=== PATIENT | male | born 1970 | race Caucasian/White ===

== ENCOUNTER 2018-08-11 07:45 | Day surgery (SDC) | payer OTHER ==
[2018-08-03 15:27] VITALS: BMI 40.3
--- NOTE | 2018-08-11 07:33 | P.GSHP ---
History of Present Illness H&P Date: 08/11/18 CHIEF COMPLAINT: Inguinal hernia, right. HISTORY OF PRESENT ILLNESS: The patient is a 48-year-old male who presents with a history of swelling and pain along the right groin. Now he presents for repair of his inguinal hernia. PAST MEDICAL HISTORY: Please see list. PAST SURGICAL HISTORY: Please see list. MEDICATIONS: Please see list. ALLERGIES: Please see list. SOCIAL HISTORY: No illicit drug use FAMILY HISTORY: No reports of Crohn disease or ulcerative colitis. REVIEW OF ORGAN SYSTEMS: CONSTITUTIONAL: No reports of fevers or chills. No reports of weight loss despite prior attempts. GI: Denies any blood in stools or constipation. PHYSICAL EXAM: VITAL SIGNS: Stable GENERAL: Well-developed pleasant male in no acute distress. HEENT: No scleral icterus. Extraocular movements grossly intact. Moist buccal mucosa. NECK: Supple without lymphadenopathy. CHEST: Unlabored respirations. Equal bilateral excursions. CARDIOVASCULAR: Regular rate and rhythm. Distal 2+ pulses. ABDOMEN: Soft, nondistended. No peritoneal signs. Palpable defect of the right groin. MUSCULOSKELETAL: No clubbing, cyanosis, or edema. ASSESSMENT: 1. Inguinal hernia, right PLAN: 1. Recommend proceeding with a robotic inguinal repair with mesh with possible bilateral approach. 2. Benefits and risks of surgical intervention was discussed including possibility of open technique. 3. DVT prophylaxis. 4. Antibiotic prophylaxis. Past Medical History Past Medical History: Hyperlipidemia, Hypertension Additional Past Medical History / Comment(s): Rt inguinal hernia, states nerve pain in neck, states issues with kidneys in past r/t alchohol History of Any Multi-Drug Resistant Organisms: None Reported Additional Past Surgical History / Comment(s): deviated septum sx Past Anesthesia/Blood Transfusion Reactions: No Reported Reaction Smoking Status: Current every day smoker - Past Family History Mother Family Medical History: No Reported History Medications and Allergies Home Medications Medication Instructions Recorded Confirmed Type Aspirin 325 mg PO DAILY 08/03/18 08/03/18 History Blood Pressure Med 1 tab PO DAILY 08/03/18 History Cholesterol Med 1 tab PO DAILY 08/03/18 History Gabapentin 1 tab PO DAILY 08/03/18 History Zoloft 1 tab PO DAILY 08/03/18 History Allergies Allergy/AdvReac Type Severity Reaction Status Date / Time No Known Allergies Allergy Verified 08/03/18 15:18
[~2018-08-11 07:45] MED LIST: DEXAMETHASONE SOD PHOSPHATE 10 MG/ML 1 ML VIAL IV ONE; HEPARIN SODIUM,PORCINE 5,000 UNIT/ML 1 ML VIAL SQ ONE; MIDAZOLAM 2 MG/2 ML VIAL IV PRN; ONDANSETRON 4 MG/2 ML VIAL IVP ONE; SCOPOLAMINE 1.5MG/72HR PATCH TRANSDERM ONE
[2018-08-11] MEDS: LIDOCAINE 1% 20 ML VIAL (10MG/ML) FOR IV START INTRADERMA PRN ×2 (08:30→08:35)
[2018-08-11] MEDS: LACTATED RINGERS 1,000 ML IV SCH ×2 (08:30→08:35)
--- NOTE | 2018-08-11 09:02 | P.ONQ ---
Anesthesiology Proc Note - PNB - Peripheral Nerve Block Performed Bilateral Transversus Abdominis Time Out Performed: Yes Procedure Start Time: 08:45 Procedure Stop Time: 08:50 Indication: Acute Post-Operative Pain, Requested by physician Sedation Type: Sedate with meaningful contact maintained Preparation: Sterile Prep Position: Supine Catheter: None Needle Types: On-Q Needle Size: 100mm (4") Needle Gauge: 21 Technique: Ultrasound Injectate: Other (see comment) (0.375% ropivaciane 30cc on each side with 5mg dexamethasone on eachside) Blood Aspirated: No Pain Paresthesia on Injection Noted: No Resistance on Injection: Normal Events: Uneventful and Well Tolerated
[2018-08-11] MEDS ORDERED: LIDOCAINE 1% INJ 10MG/ML (20 ML MDV) ONE (09:31)
[2018-08-11] MEDS ORDERED: PHENYLEPHRINE-0.9% NACL SYG 1 MG/10 ML SYRINGE ONE (09:31)
[2018-08-11] MEDS ORDERED: ROCURONIUM BROMIDE 10 MG/ML 10 ML VIAL IV ONE (09:31)
[2018-08-11] MEDS ORDERED: ROPIVACAINE 5 MG/ML 30 ML VIAL ONE (09:31)
[2018-08-11] MEDS ORDERED: MIDAZOLAM 2 MG/2 ML VIAL ONE (09:31)
[2018-08-11] MEDS ORDERED: NEOSTIGMINE 1 MG/ML 10 ML VIAL ONE (09:31)
[2018-08-11] MEDS ORDERED: fentaNYL (PF) 50 MCG/ML 2 ML AMP ONE (09:31)
[2018-08-11] MEDS ORDERED: SUCCINYLCHOLINE CHLORIDE 100 MG/5 ML SYR IV ONE (09:31)
[2018-08-11] MEDS ORDERED: PROPOFOL 10 MG/ML 20 ML VIAL IV ONE (09:31)
[2018-08-11] MEDS ORDERED: GLYCOPYRROLATE 0.2 MG/ML 2 ML VIAL ONE (09:31)
[2018-08-11] MEDS ORDERED: BUPIVACAIN-EPI 0.25%-1:200,000 30 ML VIAL SQ ONE ×2 (09:32→10:10)
[2018-08-11] MEDS: HYDROmorphone 0.5 MG/0.5 ML SYRINGE IVP PRN ×4 (11:20→11:48)
[2018-08-11] MEDS ORDERED: KETOROLAC 30 MG/ML 1 ML VIAL IVP ONE (11:25)
[2018-08-11 11:31] VITALS: TEMP 98
[2018-08-11 11:34] VITALS: RESP 18
--- NOTE | 2018-08-11 11:50 | P.OP ---
Date of Procedure: 08/11/18 Description of Procedure: SURGEON: SUJATA LOPES MD PREOPERATIVE DIAGNOSES: 1. Initial right inguinal hernia. 2. Chronic pain syndrome 3. Morbid obesity due to excess calories, BMI 40.3 4. Depressive disorder 5. Hyperlipidemia hypertensive heart disease 6. Chronic lower back pain 7. Anxiety disorder 8. Tobacco abuse POSTOPERATIVE DIAGNOSES: 1. Initial right inguinal hernia. 2. Chronic pain syndrome 3. Morbid obesity due to excess calories, BMI 40.3 4. Depressive disorder 5. Hyperlipidemia hypertensive heart disease 6. Chronic lower back pain 7. Anxiety disorder 8. Tobacco abuse OPERATION: 1. Robotic-assisted da Sam Xi laparoscopic right inguinal hernia repair with mesh, 11.[address] ANESTHESIA: General with local anesthetic ESTIMATED BLOOD LOSS: 5 mL. SPECIMENS REMOVED: Incarcerated right inguinal hernia sac COMPLICATIONS: None. INDICATIONS: The patient is a 48-year-old gentleman who presents with history of right groin pain. Now presents for definitive surgical intervention. Laparoscopic versus open and robotic approaches were discussed. Benefits and risks including bleeding, infection, injury to the vas deferens as well as sterility and chronic groin pain were reviewed. Placement of mesh was also described. Informed consent was obtained. DESCRIPTION: In the preoperative area, the patient was marked with indelible marker along the inguinal hernia. The patient was brought to the operating room and initially laid in supine position. The abdomen had been prepped and draped in standard sterile fashion. Ioban draping was also placed. Prior to incision, a timeout protocol was confirmed with surgical team regarding patient's name including procedures to be performed and location along the right groin. Initial positioning for the robotic assisted ports were selected whereby 20 cm superior to the target anatomy, 0 degree 5 mm laparoscopic trocar entry was performed at the left upper quadrant. The abdomen was insufflated to 15 mmHg which he had tolerated well. Diagnostic laparoscopy demonstrated a indirect inguinal hernia along the right groin. Next, along the epigastrium, 8 mm robot trocar was placed. An 8-mm robotic trocar was placed under direct visualization at the right upper quadrant. An 8 mm port was placed at the left upper quadrant. All trocars were positioned between 8 to 10-cm apart from each other. The [employer] XI robot was primed, draped, prepared for docking along the right side of the patient. I then went to the [employer] Xi console. The night assistant was at bedside for exchange of the robot arms and equipment. No hernia was identified along the left groin. The right inguinal hernia sac was evaginated whereby the peritoneum was scored using Endo scissors with cautery. Once completely reduced into the abdominal cavity, the peritoneal sac of the hernia was stripped along indirect inguinal hernia. The sac was resected and then passed off for further pathological analysis. The size of the hernia defect was 3 cm with intraoperative films obtained. Using a 2-0 VLOC, the peritoneal defect of the right inguinal hernia site was closed using a running suture. The defect was found to be completely closed with complete reduction of the right direct inguinal hernia was confirmed. As an onlay, an 11.[address] mesh by [email or web address] was initially cut in half and entered into the abdominal cavity via the 8 mm trocar. The mesh was tacked to the pelvis using 2-0 VLOC 9-inch length sutures. The robot was undocked from the patient's bedside. I then rescrubbed into the case. Insufflation was released from the abdominal cavity and all instruments were removed from the abdominal cavity. The rest of incisions were reapproximated using 4-0 Monocryl in a running subcuticular fashion. Local anesthetic was placed along the incision including for a right groin block. Incisions were cleansed using dilute hydrogen peroxide. Liquid glue was applied to the skin. At the end of the procedure, the needle, sponge and instrument counts had been verified correct by the surgical coordinator. The patient had tolerated the procedure well and was taken to the postanesthesia care unit in stable condition. FINDINGS: 1. Left side unremarkable 2. Nyhus type 3b right inguinal hernia extending deep to the external inguinal ring with incarceration 3. Hyperactive peristalsis small bowel. Plan - Discharge Summary New Discharge Prescriptions: New Ibuprofen [Motrin] 600 mg PO Q8HR PRN #30 tab PRN Reason: Pain No Action Aspirin 325 mg PO DAILY Zoloft 1 tab PO DAILY Blood Pressure Med 1 tab PO DAILY Atorvastatin [Lipitor] 20 mg PO DAILY cloNIDine HCL [Catapres] 1 tab PO TID Olmesartan Medoxomil [Benicar] 1 tab PO DAILY oxyCODONE HCL [OxyCONTIN] 40 mg PO Q12H oxyCODONE HCL 20 mg PO Q4-6H DULoxetine HCL [Cymbalta] 60 mg PO DAILY traZODone HCL 150 mg PO busPIRone HCL [Buspar] 1 tab PO buPROPion HCL [Wellbutrin SR] 150 mg PO Valsartan 320 mg PO Loratadine 10 mg PO Gabapentin 1 tab PO TID Discharge Medication List Aspirin 325 mg PO DAILY 08/03/18 [History] Blood Pressure Med 1 tab PO DAILY 08/03/18 [History] Zoloft 1 tab PO DAILY 08/03/18 [History] Atorvastatin [Lipitor] 20 mg PO DAILY 08/11/18 [History] DULoxetine HCL [Cymbalta] 60 mg PO DAILY 08/11/18 [History] Gabapentin 1 tab PO TID 08/11/18 [History] Ibuprofen [Motrin] 600 mg PO Q8HR PRN #30 tab 08/11/18 [Rx] Loratadine 10 mg PO 08/11/18 [History] Olmesartan Medoxomil [Benicar] 1 tab PO DAILY 08/11/18 [History] Valsartan 320 mg PO 08/11/18 [History] buPROPion HCL [Wellbutrin SR] 150 mg PO 08/11/18 [History] busPIRone HCL [Buspar] 1 tab PO 08/11/18 [History] cloNIDine HCL [Catapres] 1 tab PO TID 08/11/18 [History] oxyCODONE HCL 20 mg PO Q4-6H 08/11/18 [History] oxyCODONE HCL [OxyCONTIN] 40 mg PO Q12H 08/11/18 [History] traZODone HCL 150 mg PO 08/11/18 [History] Follow up Appointment(s)/Referral(s): Sujata Lopes MD [STAFF PHYSICIAN] - 08/16/18 11:30 am Patient Instructions/Handouts: Laparoscopic Herniorrhaphy (DC), Inguinal Hernia Repair (DC) Activity/Diet/Wound Care/Special Instructions: PRESCRIPTION SENT TO LOCAL PHARMACY. GET NARCOTICS FROM YOUR PAIN PRESCRIBER. No Lifting over 4 pounds 2 weeks. May shower. No bath tub soaks. Discharge Disposition: HOME SELF-CARE
[2018-08-11] MEDS ORDERED: LACTATED RINGERS 1,000 ML IV ONE (11:53)
[2018-08-11] MEDS ORDERED: TAMSULOSIN 0.4 MG CAP.ER.24H PO STA (12:09)
[2018-08-11 12:54] VITALS: BP 142/86; PULSE 79
== END 2018-08-11 13:11 | disposition home or self-care (01) ==
LOC: OR 07:45
PROVIDERS: ATTEND Surgery Plastic and Reconstructive Surgery
DX: K40.30 Unilateral inguinal hernia, with obstruction, without gangrene, not specified as recurrent (principal); R19.2 Visible peristalsis; G89.4 Chronic pain syndrome; E66.01 Morbid (severe) obesity due to excess calories; Z68.41 Body mass index [BMI] 40.0-44.9, adult; F32.9 Major depressive disorder, single episode, unspecified; I11.9 Hypertensive heart disease without heart failure; M54.5 Low back pain; F41.9 Anxiety disorder, unspecified; E78.5 Hyperlipidemia, unspecified; F17.210 Nicotine dependence, cigarettes, uncomplicated; F10.10 Alcohol abuse, uncomplicated; Z79.82 Long term (current) use of aspirin; Z79.899 Other long term (current) drug therapy; Z79.891 Long term (current) use of opiate analgesic
CPT/HCPCS: 64488; 88302; 49650; C1781; J2250; J1644; J1100; J2710; J0690; J2405; J2001; J3010; J1885; J2795; J2370; J0330; J2704; J1170

== ENCOUNTER 2018-11-19 16:56 | Emergency (ER) | payer OTHER ==
[2018-11-19 17:06] VITALS: RESP 18
[2018-11-19] MEDS ORDERED: THIAMINE 100 MG in SODIUM CHLORIDE 0.9% 50 ML IVPB STA (17:31)
[2018-11-19] MEDS ORDERED: SODIUM CHLORIDE 0.9% 1,000 ML IV ONE (17:31)
[2018-11-19] MEDS ORDERED: THIAMINE 200 MG in SODIUM CHLORIDE 0.9% 100 ML IVPB STA (17:36)
--- NOTE | 2018-11-19 17:39 | ED ---
General Adult HPI - General Chief complaint: Eye Problems Stated complaint: Seeing Double Time Seen by Provider: 11/19/18 17:09 Source: patient, RN notes reviewed, old records reviewed Mode of arrival: wheelchair Limitations: no limitations - History of Present Illness Initial comments: 48-year-old male presents for evaluation of double vision. Symptoms began upon awakening this morning approximately 10 hours prior to arrival. He's had episodes similar to this in the past which was related to "acid buildup secondary to alcohol consumption". This was several years ago and he was treated at an outside hospital. He does admit to daily drinking. He states he had several drinks today. Denies any extremity numbness or weakness. Denies chest pain or dyspnea. Denies fever or chills. - Related Data Home Medications Medication Instructions Recorded Confirmed Aspirin 325 mg PO DAILY 08/03/18 11/19/18 Atorvastatin [Lipitor] 20 mg PO DAILY 08/11/18 11/19/18 DULoxetine HCL [Cymbalta] 60 mg PO BID 08/11/18 11/19/18 Gabapentin 800 mg PO TID 08/11/18 11/19/18 Loratadine 10 mg PO DAILY 08/11/18 11/19/18 Valsartan 320 mg PO DAILY 08/11/18 11/19/18 buPROPion HCL [Wellbutrin SR] 150 mg PO DAILY 08/11/18 11/19/18 cloNIDine HCL [Catapres] 0.1 mg PO TID 08/11/18 11/19/18 oxyCODONE HCL [OxyCONTIN] 40 mg PO Q12H 08/11/18 11/19/18 oxyCODONE HCL [oxyCODONE HCL (IR)] 20 mg PO TID 08/11/18 11/19/18 traZODone HCL 150 mg PO HS 08/11/18 11/19/18 busPIRone HCL 15 mg PO BID 11/19/18 11/19/18 Allergies Allergy/AdvReac Type Severity Reaction Status Date / Time No Known Allergies Allergy Verified 11/19/18 18:04 Review of Systems ROS Statement: Those systems with pertinent positive or pertinent negative responses have been documented in the HPI. ROS Other: All systems not noted in ROS Statement are negative. Past Medical History Past Medical History: Hyperlipidemia, Hypertension Additional Past Medical History / Comment(s): Rt inguinal hernia, states nerve pain in neck, states issues with kidneys in past r/t alchohol History of Any Multi-Drug Resistant Organisms: None Reported Additional Past Surgical History / Comment(s): deviated septum sx Past Anesthesia/Blood Transfusion Reactions: No Reported Reaction Past Psychological History: Anxiety Smoking Status: Current every day smoker Past Alcohol Use History: Daily Past Drug Use History: Marijuana - Past Family History Mother Family Medical History: No Reported History General Exam Limitations: no limitations General appearance: alert, appears intoxicated Head exam: Present: atraumatic, normocephalic Eye exam: Present: PERRL, nystagmus, other (Minimal right sixth nerve palsy) ENT exam: Present: mucous membranes dry Neck exam: Present: normal inspection. Absent: tenderness, meningismus Respiratory exam: Present: normal lung sounds bilaterally. Absent: respiratory distress, wheezes Cardiovascular Exam: Present: regular rate, normal rhythm GI/Abdominal exam: Present: soft. Absent: distended, tenderness, guarding Extremities exam: Present: normal inspection, tenderness Back exam: Present: normal inspection, tenderness Neurological exam: Present: alert, oriented X3, CN II-XII intact (Nystagmus and right sixth nerve palsy), motor sensory deficit (No focal extremity weakness) Psychiatric exam: Present: normal affect, normal mood Skin exam: Present: warm, dry, intact. Absent: cyanosis, diaphoretic Course Vital Signs 11/19/18 17:04 Temperature 98.3 F Pulse Rate 83 Respiratory 18 Rate Blood Pressure 131/78 O2 Sat by Pulse 99 Oximetry EKG Findings - EKG Comments: EKG Findings:: EKG: Normal sinus rhythm, rate 74, VA interval 154, QRS duration 92, QTC [address] segment changes. Medical Decision Making - Medical Decision Making Patient with nystagmus, 6 cranial nerve palsy and double vision. Concern for work is given the patient's daily alcohol consumption. CT is performed negative for intracranial hemorrhage or mass effect. Normal CBC, mild lactic acidosis 2.6, magnesium 1.9, EtOH is 141. Plan to admit this patient for continued IV hydration, IV thiamine, for Wernicke's encephalopathy. On reevaluation, patient is at the desk, fully dressed with this, rebound, stating he would like to leave immediately. He states his vision is completely returned to normal. He is accompanied by his . They are instructed of the severity of his symptoms and the relation to alcohol consumption and vitamin deficiency. They are instructed that if they do the hospital that he should abstain from alcohol, and showed take thiamine supplementation. - Lab Data Result diagrams: 11/19/18 17:52 11/19/18 17:52 Lab Results 11/19/18 11/19/18 11/19/18 Range/Units 17:52 17:52 17:52 WBC 10.1 (3.8-10.6) k/uL RBC 4.48 (4.30-5.90) m/uL Hgb 13.2 (13.0-17.5) gm/dL Hct 38.2 L (39.0-53.0) % MCV 85.3 (80.0-100.0) fL MCH 29.4 (25.0-35.0) pg MCHC 34.4 (31.0-37.0) g/dL RDW 16.8 H (11.5-15.5) % Plt Count 300 (150-450) k/uL Neutrophils % 58 % Lymphocytes % 33 % Monocytes % 5 % Eosinophils % 1 % Basophils % 1 % Neutrophils # 5.9 (1.3-7.7) k/uL Lymphocytes # 3.4 (1.0-4.8) k/uL Monocytes # 0.5 (0-1.0) k/uL Eosinophils # 0.1 (0-0.7) k/uL Basophils # 0.1 (0-0.2) k/uL Anisocytosis Slight PT (9.0-12.0) sec INR (<1.2) APTT (22.0-30.0) sec Sodium 137 (137-145) mmol/L Potassium 4.3 (3.5-5.1) mmol/L Chloride 103 (98-107) mmol/L Carbon Dioxide 22 (22-30) mmol/L Anion Gap 12 mmol/L BUN 8 L (9-20) mg/dL Creatinine 0.69 (0.66-1.25) mg/dL Est GFR (CKD-EPI)AfAm >90 (>60 ml/min/1.73 sqM) Est GFR (CKD-EPI)NonAf >90 (>60 ml/min/1.73 sqM) Glucose 80 (74-99) mg/dL Plasma Lactic Acid Derik 2.6 H* (0.7-2.0) mmol/L Calcium 9.5 (8.4-10.2) mg/dL Magnesium 1.9 (1.6-2.3) mg/dL Total Bilirubin 0.3 (0.2-1.3) mg/dL AST 26 (17-59) U/L ALT 27 (21-72) U/L Alkaline Phosphatase 80 (38-126) U/L Total Protein 6.7 (6.3-8.2) g/dL Albumin 4.0 (3.5-5.0) g/dL Serum Alcohol 141 mg/dL 11/19/18 Range/Units 17:52 WBC (3.8-10.6) k/uL RBC (4.30-5.90) m/uL Hgb (13.0-17.5) gm/dL Hct (39.0-53.0) % MCV (80.0-100.0) fL MCH (25.0-35.0) pg MCHC (31.0-37.0) g/dL RDW (11.5-15.5) % Plt Count (150-450) k/uL Neutrophils % % Lymphocytes % % Monocytes % % Eosinophils % % Basophils % % Neutrophils # (1.3-7.7) k/uL Lymphocytes # (1.0-4.8) k/uL Monocytes # (0-1.0) k/uL Eosinophils # (0-0.7) k/uL Basophils # (0-0.2) k/uL Anisocytosis PT 9.5 (9.0-12.0) sec INR 0.9 (<1.2) APTT 23.0 (22.0-30.0) sec Sodium (137-145) mmol/L Potassium (3.5-5.1) mmol/L Chloride (98-107) mmol/L Carbon Dioxide (22-30) mmol/L Anion Gap mmol/L BUN (9-20) mg/dL Creatinine (0.66-1.25) mg/dL Est GFR (CKD-EPI)AfAm (>60 ml/min/1.73 sqM) Est GFR (CKD-EPI)NonAf (>60 ml/min/1.73 sqM) Glucose (74-99) mg/dL Plasma Lactic Acid Derik (0.7-2.0) mmol/L Calcium (8.4-10.2) mg/dL Magnesium (1.6-2.3) mg/dL Total Bilirubin (0.2-1.3) mg/dL AST (17-59) U/L ALT (21-72) U/L Alkaline Phosphatase (38-126) U/L Total Protein (6.3-8.2) g/dL Albumin (3.5-5.0) g/dL Serum Alcohol mg/dL Disposition Clinical Impression: Wernicke encephalopathy, Nystagmus Disposition: HOME SELF-CARE Condition: Fair Instructions (If sedation given, give patient instructions): Diplopia (ED), Encephalopathy (DC) Is patient prescribed a controlled substance at d/c from ED?: No Referrals: Jesus Denson MD [Primary Care Provider] - 1-2 days Time of Disposition: 19:23
[2018-11-19] MEDS ORDERED: MORPHINE SULFATE 4 MG/ML SYRINGE IVP STA (18:01)
[2018-11-19 18:05] LABS: Anisocytosis Slight; Basophils # (A) 0.1 k/uL (0-0.2); Basophils % (A) 1 %; Eosinophils # (A) 0.1 k/uL (0-0.7); Eosinophils % (A) 1 %; HCT 38.2 % (39.0-53.0); HGB 13.2 gm/dL (13.0-17.5); Lymphocytes # (A) 3.4 k/uL (1.0-4.8); Lymphocytes % (A) 33 %; MCH 29.4 pg (25.0-35.0); MCHC 34.4 g/dL (31.0-37.0); MCV 85.3 fL (80.0-100.0); Mean Platelet Volume 9.2; Monocytes # (A) 0.5 k/uL (0-1.0); Monocytes % (A) 5 %; Neutrophils # (A) 5.9 k/uL (1.3-7.7); Neutrophils % (A) 58 %; Platelet Count 300 k/uL (150-450); RBC 4.48 m/uL (4.30-5.90); RDW 16.8 % (11.5-15.5); WBC 10.1 k/uL (3.8-10.6)
[2018-11-19 18:18] LABS: ALT 27 U/L (21-72); AST 26 U/L (17-59); Alkaline Phosphatase 80 U/L (38-126); Anion Gap 12 mmol/L; Blood Urea Nitrogen 8 mg/dL (9-20); Calcium 9.5 mg/dL (8.4-10.2); Carbon Dioxide 22 mmol/L (22-30); Chloride 103 mmol/L (98-107); Glucose 80 mg/dL (74-99); Magnesium 1.9 mg/dL (1.6-2.3); Potassium 4.3 mmol/L (3.5-5.1); Sodium 137 mmol/L (137-145); Total Bilirubin 0.3 mg/dL (0.2-1.3); Total Protein 6.7 g/dL (6.3-8.2)
[2018-11-19 18:21] LABS: INR 0.9 (<1.2); Prothrombin Time 9.5 sec (9.0-12.0)
[2018-11-19 18:47] LABS: Alcohol 141 mg/dL
--- NOTE | 2018-11-19 19:01 | CT ---
EXAMINATION TYPE: CT brain wo con DATE OF EXAM: 11/19/2018 COMPARISON: None HISTORY: double vision CT DLP: 1093.4 mGycm. Automated Exposure Control for Dose Reduction was Utilized. TECHNIQUE: CT scan of the head is performed without contrast. FINDINGS: There is no acute intracranial hemorrhage, mass effect, or midline shift identified. The ventricles and sulci are within normal limits in size. Mild asymmetry in the lateral ventricles is likely normal variant. There is mild cortical atrophy. The globes are intact and the visualized sinus es are clear. IMPRESSION: No acute intracranial hemorrhage, mass effect, or midline shift is seen.
[2018-11-19 19:32] VITALS: BP 126/82; PULSE 80; TEMP 98.1
== END 2018-11-19 19:31 | disposition home or self-care (01) ==
LOC: EC 16:56
DX: E51.2 Wernicke's encephalopathy (principal); H55.00 Unspecified nystagmus; E78.5 Hyperlipidemia, unspecified; I10 Essential (primary) hypertension; F41.9 Anxiety disorder, unspecified; F17.200 Nicotine dependence, unspecified, uncomplicated; Z79.82 Long term (current) use of aspirin; Z79.899 Other long term (current) drug therapy; Z53.8 Procedure and treatment not carried out for other reasons
CPT/HCPCS: 36415; 93005; 80053; 83605; 83735; 85025; 85610; 85730; 80320; 70450; 99284; 96365; 96375; J2270; J3411

== ENCOUNTER → 2019-02-28 | Outpatient (CLI) | payer OTHER ==
--- NOTE | 2019-02-28 09:47 | CT ---
EXAMINATION TYPE: CT foot RT wo con DATE OF EXAM: 02/28/2019 COMPARISON: None HISTORY: Pain right foot Unenhanced CT of the right foot was performed in the axial coronal and sagittal planes with bone and soft tissue window settings submitted. Automated exposure control for dose reduction was used. FINDINGS: Virtually nondisplaced fractures are noted at the bases of the second third and fourth metatarsals. T here does not appear to be intra-articular extension. No significant callus formation is noted. No ev idence for Lisfranc fracture dislocation at this time. No additional fracture seen. If there is mild soft tissue swelling noted. IMPRESSION: NONDISPLACED FRACTURES AT THE BASES OF THE SECOND, THIRD AND FOURTH METATARSALS. NO EVIDENCE FOR LISF RANC FRACTURE DISLOCATION AT THIS TIME.
== END | disposition home or self-care (01) ==
LOC: RADCTMAIN 07:26
PROVIDERS: ATTEND Orthopaedic Surgery
DX: S92.324A Nondisplaced fracture of second metatarsal bone, right foot, initial encounter for closed fracture (principal); S92.334A Nondisplaced fracture of third metatarsal bone, right foot, initial encounter for closed fracture; S92.344A Nondisplaced fracture of fourth metatarsal bone, right foot, initial encounter for closed fracture

== ENCOUNTER 2019-05-08 22:17 | Emergency (ER) | payer OTHER ==
[2019-05-08 23:08] LABS: Basophils # (A) 0.2 k/uL (0-0.2); Basophils % (A) 1 %; Eosinophils # (A) 0.1 k/uL (0-0.7); Eosinophils % (A) 1 %; HCT 39.2 % (39.0-53.0); HGB 13.3 gm/dL (13.0-17.5); Lymphocytes # (A) 4.9 k/uL (1.0-4.8); Lymphocytes % (A) 48 %; MCH 30.7 pg (25.0-35.0); MCV 90.3 fL (80.0-100.0); Mean Platelet Volume 6.6; Monocytes # (A) 0.3 k/uL (0-1.0); Monocytes % (A) 3 %; Neutrophils # (A) 4.4 k/uL (1.3-7.7); Neutrophils % (A) 43 %; Platelet Count 286 k/uL (150-450); RBC 4.34 m/uL (4.30-5.90); RDW 15.4 % (11.5-15.5); WBC 10.2 k/uL (3.8-10.6)
[2019-05-08 23:20] LABS: Urn Cannabinoid Scrn Detected (NotDetected)
[2019-05-08 23:21] LABS: ALT 40 U/L (21-72); AST 37 U/L (17-59); Acetaminophen <10.0 ug/mL; African American GFR (CKD) >90 (>60 ml/min/1.73 sqM); Albumin 4.3 g/dL (3.5-5.0); Alkaline Phosphatase 101 U/L (38-126); Anion Gap 10 mmol/L; Blood Urea Nitrogen 8 mg/dL (9-20); Calcium 9.2 mg/dL (8.4-10.2); Carbon Dioxide 27 mmol/L (22-30); Chloride 99 mmol/L (98-107); Glucose 88 mg/dL (74-99); Potassium 4.2 mmol/L (3.5-5.1); Salicylate <1.0 mg/dL; Sodium 136 mmol/L (137-145); Total Bilirubin 0.2 mg/dL (0.2-1.3); Total Protein 7.2 g/dL (6.3-8.2)
[2019-05-08 23:21] LABS: Amphetamine Screen,Urine Not Detected (NotDetected); Barbiturate Screen,Urine Not Detected (NotDetected); Benzodiazepines Screen,Urine Detected (NotDetected); Cocaine Screen,Urine Not Detected (NotDetected); Methadone Screen, Urine Not Detected (NotDetected); Opiate Screen,Urine Not Detected (NotDetected); Oxycodone Screen, Urine Detected (NotDetected); Phencyclidine Screen,Urine Not Detected (NotDetected); Tricyclic Antidepressant,Urine Not Detected (NotDetected)
[2019-05-08 23:24] LABS: Alcohol 243 mg/dL
--- NOTE | 2019-05-08 23:33 | ED ---
Psych HPI - General Source: patient, family Mode of arrival: ambulatory <Davida Blair - Last Filed: 05/09/19 00:24> <Daniel Gomez - Last Filed: 05/09/19 10:05> - General Chief Complaint: Psychiatric Symptoms Stated Complaint: ETOH Time Seen by Provider: 05/08/19 22:24 - History of Present Illness Initial Comments: Leo is a 49-year-old gentleman who presents the emergency department today for evaluation of depression, polysubstance abuse. Patient suffers from chronic pain he's had multiple neck surgeries he's on multiple pain medications despite this he states he can get his pain under control. His reports that he drinks heavily to mask his pain. Avoid seafood. Both she was at work the patient been drinking heavily and when she came home he was making suicidal statements stating that he wants everything to end. Patient states she just wants all of this and he can't deal with it anymore. Patient is agitated. He states he didn't want to the hospital his made him. He does admit to drinking heavily along with taking his medications. His does report that he will run out of his pain medications earlier this week because he "ran short" (Davida Blair) - Related Data Home Medications Medication Instructions Recorded Confirmed Atorvastatin [Lipitor] 20 mg PO DAILY 08/11/18 05/09/19 DULoxetine HCL [Cymbalta] 60 mg PO BID 08/11/18 05/09/19 Gabapentin 800 mg PO TID 08/11/18 05/09/19 buPROPion HCL [Wellbutrin SR] 150 mg PO BID 08/11/18 05/09/19 cloNIDine HCL [Catapres] 0.1 mg PO TID 08/11/18 05/09/19 oxyCODONE HCL [oxyCODONE HCL (IR)] 20 mg PO QID 08/11/18 05/09/19 traZODone HCL 150 mg PO HS 08/11/18 05/09/19 Olmesartan Medoxomil [Benicar] 40 mg PO DAILY 05/09/19 05/09/19 Allergies Allergy/AdvReac Type Severity Reaction Status Date / Time No Known Allergies Allergy Verified 05/08/19 22:24 Review of Systems ROS Other: All systems not noted in ROS Statement are negative. <Davida Blair - Last Filed: 05/09/19 00:24> ROS Other: All systems not noted in ROS Statement are negative. <JasonDaniel - Last Filed: 05/09/19 10:05> ROS Statement: Those systems with pertinent positive or pertinent negative responses have been documented in the HPI. Past Medical History Past Medical History: Hyperlipidemia, Hypertension Additional Past Medical History / Comment(s): Rt inguinal hernia, states nerve pain in neck, states issues with kidneys in past r/t alchohol History of Any Multi-Drug Resistant Organisms: None Reported Past Surgical History: Hernia Repair Additional Past Surgical History / Comment(s): deviated septum sx Past Anesthesia/Blood Transfusion Reactions: No Reported Reaction Past Psychological History: Anxiety Smoking Status: Current every day smoker Past Alcohol Use History: Abuse, Daily Past Drug Use History: Marijuana, Prescription Drug Abuse - Past Family History Mother Family Medical History: No Reported History <Davida Blair - Last Filed: 05/09/19 00:24> General Exam Limitations: no limitations <Davida Blair - Last Filed: 05/09/19 00:24> - General Exam Comments Initial Comments: Physical Exam GENERAL: Patient's laying in bed with the blankets over his entire body and head, resistant to exam Drug odor of alcohol. HENT: Normocephalic, Atraumatic. EYES: PERRL, EOMI PULMONARY: Unlabored respirations. No audible rales rhonchi or wheezing was noted. CARDIOVASCULAR: There is a regular rate and rhythm without any murmurs gallops or rubs. ABDOMEN: Soft and nontender with normal bowel sounds. SKIN: Skin is clear with no lesions or rashes and otherwise unremarkable. : Deferred NEUROLOGIC: Patient is alert and oriented x3. Moving all extremities spontaneously Slurred speech consistent with alcohol intoxication MUSCULOSKELETAL: Normal extremities with adequate strength and full range of motion. No lower extremity swelling or edema. No calf tenderness. PSYCHIATRIC: Agitated, hopeless, depressed, denies any suicidal plan but repeatedly states that he wants this all to end (Davida Blair) Course <Daniel Gomez - Last Filed: 05/09/19 10:05> Vital Signs 05/08/19 05/09/19 05/09/19 22:19 00:59 03:53 Temperature 97.9 F 97.3 F L Pulse Rate 69 79 79 Respiratory 18 16 19 Rate Blood Pressure 127/82 116/75 106/66 O2 Sat by Pulse 99 99 98 Oximetry 05/09/19 08:28 Temperature 98.7 F Pulse Rate 77 Respiratory 18 Rate Blood Pressure 100/60 O2 Sat by Pulse 98 Oximetry - Reevaluation(s) Reevaluation #1: 05/09/19 10:04 The patient was evaluated by sticking surface found not to be wrist was suffering miles this time he will be referred out to substance abuse Center. (Daniel Gomez) Medical Decision Making - Lab Data Result diagrams: 05/08/19 22:52 05/08/19 22:52 <Davida Blair - Last Filed: 05/09/19 00:24> - Lab Data Result diagrams: 05/08/19 22:52 05/08/19 22:52 <Daniel Gomez - Last Filed: 05/09/19 10:05> - Medical Decision Making The patient was seen and evaluated history was obtained from the and patient Patient is 49 years old suffers from chronic pain is on multiple medications, is an alcoholic, has become increasingly more depressed, hopeless brought him to the ER hoping for help with his depression as well as pain management Physical exam is unremarkable Patient does express some depression and wanting everything to end but denies specific suicidal thoughts or plan Patient is intoxicated on initial evaluation Labs were obtained Labs with alcohol level of 243, urine drug screen positive for oxycodone benzos and marijuana. This consistent with the patient's pain management medications and marijuana use. Patient will be medically cleared for evaluation by psychiatry around 7 AM when sober. (Davida Blair) - Lab Data Lab Results 05/08/19 05/08/19 05/08/19 Range/Units 22:45 22:52 22:52 WBC 10.2 (3.8-10.6) k/uL RBC 4.34 (4.30-5.90) m/uL Hgb 13.3 (13.0-17.5) gm/dL Hct 39.2 (39.0-53.0) % MCV 90.3 (80.0-100.0) fL MCH 30.7 (25.0-35.0) pg MCHC 34.0 (31.0-37.0) g/dL RDW 15.4 (11.5-15.5) % Plt Count 286 (150-450) k/uL Neutrophils % 43 % Lymphocytes % 48 % Monocytes % 3 % Eosinophils % 1 % Basophils % 1 % Neutrophils # 4.4 (1.3-7.7) k/uL Lymphocytes # 4.9 H (1.0-4.8) k/uL Monocytes # 0.3 (0-1.0) k/uL Eosinophils # 0.1 (0-0.7) k/uL Basophils # 0.2 (0-0.2) k/uL Sodium 136 L (137-145) mmol/L Potassium 4.2 (3.5-5.1) mmol/L Chloride 99 (98-107) mmol/L Carbon Dioxide 27 (22-30) mmol/L Anion Gap 10 mmol/L BUN 8 L (9-20) mg/dL Creatinine 0.73 (0.66-1.25) mg/dL Est GFR (CKD-EPI)AfAm >90 (>60 ml/min/1.73 sqM) Est GFR (CKD-EPI)NonAf >90 (>60 ml/min/1.73 sqM) Glucose 88 (74-99) mg/dL Calcium 9.2 (8.4-10.2) mg/dL Total Bilirubin 0.2 (0.2-1.3) mg/dL AST 37 (17-59) U/L ALT 40 (21-72) U/L Alkaline Phosphatase 101 (38-126) U/L Total Protein 7.2 (6.3-8.2) g/dL Albumin 4.3 (3.5-5.0) g/dL Salicylates <1.0 mg/dL Urine Opiates Screen Not Detected (NotDetected) Ur Oxycodone Screen Detected H (NotDetected) Urine Methadone Screen Not Detected (NotDetected) Ur Propoxyphene Screen Not Detected (NotDetected) Acetaminophen <10.0 ug/mL Ur Barbiturates Screen Not Detected (NotDetected) U Tricyclic Antidepress Not Detected (NotDetected) Ur Phencyclidine Scrn Not Detected (NotDetected) Ur Amphetamines Screen Not Detected (NotDetected) U Methamphetamines Scrn Not Detected (NotDetected) U Benzodiazepines Scrn Detected H (NotDetected) Urine Cocaine Screen Not Detected (NotDetected) U Marijuana (THC) Screen Detected H (NotDetected) Serum Alcohol 243 H* mg/dL Disposition <Davida Blair - Last Filed: 05/09/19 00:24> Is patient prescribed a controlled substance at d/c from ED?: No <Daniel Gomez - Last Filed: 05/09/19 10:05> Clinical Impression: Alcohol intoxication, Adjustment disorder Disposition: HOME SELF-CARE Condition: Good Instructions (If sedation given, give patient instructions): Abuse of Alcohol (ED), Alcohol Intoxication (ED), Mood Disorders (ED) Referrals: Jesus Denson MD [Primary Care Provider] - 1-2 days
[2019-05-09 10:36] VITALS: BP 112/71; PULSE 73; RESP 16; TEMP 98
== END 2019-05-09 10:35 | disposition home or self-care (01) ==
LOC: EC 22:17
DX: F10.129 Alcohol abuse with intoxication, unspecified (principal); F43.23 Adjustment disorder with mixed anxiety and depressed mood; G89.29 Other chronic pain; E78.5 Hyperlipidemia, unspecified; I10 Essential (primary) hypertension; F17.200 Nicotine dependence, unspecified, uncomplicated; Z79.891 Long term (current) use of opiate analgesic; Z79.899 Other long term (current) drug therapy; Y90.8 Blood alcohol level of 240 mg/100 ml or more
CPT/HCPCS: 36415; 80053; 80306; 80320; 80329; 82075; 83520; 85025; 99285

== ENCOUNTER → 2020-10-10 | Outpatient (CLI) | payer BC ==
[2020-10-10 23:19] LABS: Basophils # (A) 0.06 X 10*3/uL (0.00-0.10); Basophils % (A) 0.8 %; Eosinophils # (A) 0.05 X 10*3/uL (0.04-0.35); Eosinophils % (A) 0.7 %; HCT 35.7 % (39.6-50.0); HGB 11.8 g/dL (13.0-17.0); Lymphocytes # (A) 2.91 X 10*3/uL (0.90-5.00); Lymphocytes % (A) 39.9 %; MCH 30.6 pg (27.0-32.0); MCHC 33.1 g/dL (32.0-37.0); MCV 92.7 fL (80.0-97.0); Mean Platelet Volume 10.1 fL (9.5-12.2); Monocytes # (A) 0.58 X 10*3/uL (0.20-1.00); Monocytes % (A) 7.9 %; Neutrophils # (A) 3.68 X 10*3/uL (1.80-7.70); Neutrophils % (A) 50.4 %; Platelet Count 308 X 10*3/uL (140-440); RBC 3.85 X 10*6/uL (4.40-5.60); RDW 15.2 % (11.5-14.5)
== END | disposition home or self-care (01) ==
LOC: LABWHC1 14:51
PROVIDERS: ATTEND Nurse Practitioner
DX: R19.7 Diarrhea, unspecified (principal)
CPT/HCPCS: 36415; 83993; 85025; 86140

== ENCOUNTER 2022-08-31 18:13 | Inpatient (IN) | payer BC ==
[2022-08-31 19:26] LABS: Anisocytosis Slight; HCT 36.5 % (39.0-53.0); HGB 11.8 gm/dL (13.0-17.5); MCH 30.7 pg (25.0-35.0); MCHC 32.2 g/dL (31.0-37.0); MCV 95.4 fL (80.0-100.0); Mean Platelet Volume 7.2; Platelet Count 276 k/uL (150-450); RBC 3.83 m/uL (4.30-5.90); RDW 16.4 % (11.5-15.5); WBC 10.9 k/uL (3.8-10.6)
[2022-08-31 19:31] LABS: ALT 50 U/L (4-49); AST 44 U/L (17-59); African American GFR (CKD) >90 (>60 ml/min/1.73 sqM); Albumin 3.9 g/dL (3.5-5.0); Alkaline Phosphatase 75 U/L (38-126); Anion Gap 10 mmol/L; Blood Urea Nitrogen 28 mg/dL (9-20); Calcium 8.7 mg/dL (8.4-10.2); Carbon Dioxide 26 mmol/L (22-30); Chloride 112 mmol/L (98-107); Glucose 82 mg/dL (74-99); Lipase 215 U/L (23-300); Magnesium 2.2 mg/dL (1.6-2.3); Non-African American GFR(CKD) >90 (>60 ml/min/1.73 sqM); Potassium 4.4 mmol/L (3.5-5.1); Sodium 148 mmol/L (137-145); Total Bilirubin 0.2 mg/dL (0.2-1.3); Total Protein 6.5 g/dL (6.3-8.2)
[2022-08-31 19:49] LABS: Alcohol 384 mg/dL
--- NOTE | 2022-08-31 19:50 | CT ---
EXAMINATION TYPE: CT brain anneliese wo con DATE OF EXAM: 08/31/2022 COMPARISON: CT brain 11/19/2018 HISTORY: ETOH, possible fall CT DLP: 1520.9 mGycm Automated exposure control for dose reduction was used. Images of the brain and cervical spine obtained without contrast. There is mild cerebral atrophy. There is no mass effect or midline shift. No sign of intracranial hem orrhage. Calvarium is intact. The cervical vertebra have normal spacing and alignment. Posterior elements are intact. There is mild multilevel cervical hypertrophic facet arthropathy. Prevertebral soft tissues are intact. The skull base is intact. There is normal aeration of the temporal bones. IMPRESSION: Mild atrophy. No acute intracranial abnormality. No change. Negative CT scan cervical spine. No fracture. Mild multilevel cervical facet arthropathy.
[2022-08-31] MEDS ORDERED: LORazepam 2 MG/ML INJ IM STA ×2 (20:04→20:14)
[2022-08-31 20:12] LABS: Lymphocytes # (M) 6.21 k/uL (1.0-4.8); Monocytes # (M) 0.44 k/uL (0-1.0); Neutrophils # (M) 4.25 k/uL (1.3-7.7); Neutrophils % (M) 39 %; Nucleated Red Blood Cells 0 /100 WBC (0-0); Total Cells Counted 100
[2022-08-31] MEDS ORDERED: HALOPERIDOL LACTATE 5 MG/ML 1 ML VIAL IM STA (20:14)
[2022-08-31] MEDS ORDERED: diphenhydrAMINE 50 MG/ML 1 ML VIAL IM STA (20:14)
--- NOTE | 2022-08-31 20:29 | ED ---
General Adult HPI - General Chief complaint: Alcohol Stated complaint: ETOH Source: EMS Mode of arrival: EMS Limitations: no limitations - History of Present Illness Initial comments: This is a 52-year-old male who was brought in by EMS for EtOH abuse. It was reported by EMS that the patient was reportedly finishing his fifth of vodka and was significantly intoxicated. The patient's was at home and did report that the last time this happened she had to wrestle a gun out of his hands because he becomes suicidal. The patient himself was not suicidal at this time but was extremely intoxicated at this time. The patient denied any suicidal ideations however was slurring his words and denying any other acute pain or distress. The patient denied any trauma and the denied any trauma to EMS. No further history could be obtained at this time. - Related Data Home Medications Medication Instructions Recorded Confirmed oxyCODONE HCL [oxyCODONE HCL (IR)] 30 mg PO Q6H 08/25/22 08/31/22 Acamprosate Calcium [Campral] 666 mg PO TID 08/31/22 08/31/22 Sertraline [Zoloft] 50 mg PO DAILY 08/31/22 08/31/22 chlordiazePOXIDE HCl [Librium] 50 mg PO TID 08/31/22 08/31/22 Allergies Allergy/AdvReac Type Severity Reaction Status Date / Time No Known Allergies Allergy Verified 08/31/22 19:54 Review of Systems ROS Statement: Those systems with pertinent positive or pertinent negative responses have been documented in the HPI. ROS Other: All systems not noted in ROS Statement are negative. Past Medical History Past Medical History: Hyperlipidemia, Hypertension Additional Past Medical History / Comment(s): Chronic cervical pain. History of Any Multi-Drug Resistant Organisms: None Reported Past Surgical History: Hernia Repair Additional Past Surgical History / Comment(s): R inguinal hernia repair, deviated septum sx, colonoscopy x 2. Past Anesthesia/Blood Transfusion Reactions: No Reported Reaction Past Psychological History: Anxiety, Depression Smoking Status: Current every day smoker Past Alcohol Use History: Heavy Past Drug Use History: None Reported - Past Family History Mother Family Medical History: No Reported History Additional Family Medical History / Comment(s): Mother April 2022 of covid. Father Family Medical History: No Reported History Additional Family Medical History / Comment(s): Father from an accident. General Exam Limitations: no limitations General appearance: alert, appears intoxicated Head exam: Present: atraumatic, normocephalic, normal inspection Eye exam: Present: normal appearance, PERRL Pupils: Present: normal accommodation ENT exam: Present: normal exam, normal oropharynx, mucous membranes moist Neck exam: Present: normal inspection, full ROM Respiratory exam: Present: normal lung sounds bilaterally Cardiovascular Exam: Present: regular rate, normal rhythm, normal heart sounds GI/Abdominal exam: Present: soft, normal bowel sounds Extremities exam: Present: normal inspection, full ROM Back exam: Present: normal inspection, full ROM Neurological exam: Present: alert, altered (Intoxicated) Psychiatric exam: Present: other (Intoxicated) Skin exam: Present: warm, dry Course Vital Signs 08/31/22 18:14 Pulse Rate 93 Respiratory 18 Rate Blood Pressure 143/90 O2 Sat by Pulse 98 Oximetry Medical Decision Making - Medical Decision Making Was pt. sent in by a medical professional or institution (, PA, BREWERY REPRESENTATIVE, urgent care, hospital, or group home...) When possible be specific @ -No Did you speak to anyone other than the patient for history (EMS, parent, family, police, friend...)? What history was obtained from this source @ -Yes, EMS Did you review nursing and triage notes (agree or disagree)? Why? @ -I reviewed and agree with nursing and triage notes Were old charts reviewed (outside hosp., previous admission, EMS record, old EKG, old radiological studies, urgent care reports/EKG's, group home records)? Report findings @ -No old charts were reviewed Differential Diagnosis (chest pain, altered mental status, abdominal pain women, abdominal pain men, vaginal bleeding, weakness, fever, dyspnea, syncope, headache, dizziness, GI bleed, back pain, seizure, CVA, palpatations, mental health)? @ -Acute alcohol intoxication, intracranial hemorrhage EKG interpreted by me (3pts min.). @ -As above X-rays interpreted by me (1pt min.). @ -None done CT interpreted by me (1pt min.). @ -CT head and CT C-spine were obtained and were interpreted by myself showing no acute process. U/S interpreted by me (1pt. min.). @ -None done What testing was considered but not performed or refused? (CT, X-rays, U/S, labs)? Why? @ -None What meds were considered but not given or refused? Why? @ -None Did you discuss the management of the patient with other professionals (professionals i.e. , PA, BREWERY REPRESENTATIVE, lab, RT, psych nurse, nursing home social worker, evp managing director, teacher, sewage reticulation drafting officer, shoe caser)? Give summary @ -Yes, admitted physician Was smoking cessation discussed for >3mins.? @ -Yes Was critical care preformed (if so, how long)? @ -No Were there social determinants of health that impacted care today? How? (Homelessness, low income, unemployed, alcoholism, drug addiction, transportation, low edu. Level, literacy, decrease access to med. care, alf, rehab)? @ -No Was there de-escalation of care discussed even if they declined (Discuss DNR or withdrawal of care, Hospice)? DNR status @ -No What co-morbidities impacted this encounter? (DM, HTN, Smoking, COPD, CAD, Cancer, CVA, ARF, Chemo, Hep., AIDS, mental health diagnosis, sleep apnea, morbid obesity)? @ -Chronic alcoholism Was patient admitted / discharged? Hospital course, mention meds given and route, prescriptions, significant lab abnormalities, going to OR and other pertinent info. @ -The patient was seen and evaluated in the emergency department. Physical exam, the patient was intoxicated but was intermittently following commands appropriate. The patient didn't have any signs of obvious trauma. No further history could be obtained at this time besides the EMS report that the patient h ad a significant amount of alcohol at home and did have a previous episode of suicide intent. The patient was not suicidal or homicidal at this time. When evaluated emergency department, the patient became aggressive toward staff and did need to be restrained. The patient's EtOH level was 384. Due to the patient's elevation of EtOH, the patient will be admitted for alcohol poisoning. The patient's primary care physician was being covered by Dr. Kahn and he accepted the admission at 2024. The patient was told of this and was agreeable. The patient was admitted in stable condition. Undiagnosed new problem with uncertain prognosis? @ -No Drug Therapy requiring intensive monitoring for toxicity (Heparin, Nitro, Insulin, Cardizem)? @ -No Were any procedures done? @ -No Diagnosis/symptom? @ -Alcohol intoxication Acute, or Chronic, or Acute on Chronic? @ -Acute Uncomplicated (without systemic symptoms) or Complicated (systemic symptoms)? @ -Uncomplicated Side effects of treatment? @ -No Exacerbation, Progression, or Severe Exacerbation? @ -No Poses a threat to life or bodily function? How? (Chest pain, [place], [place], pneumonia, PE, COPD, DKA, ARF, appy, cholecystitis, CVA, Diverticulitis, Homicidal, Suicidal, threat to staff... and all critical care pts) @ -No - Lab Data Result diagrams: 08/31/22 19:07 08/31/22 19:07 Lab Results 08/31/22 08/31/22 Range/Units 19: 19:07 WBC 10.9 H (3.8-10.6) k/uL RBC 3.83 L (4.30-5.90) m/uL Hgb 11.8 L (13.0-17.5) gm/dL Hct 36.5 L (39.0-53.0) % MCV 95.4 (80.0-100.0) fL MCH 30.7 (25.0-35.0) pg MCHC 32.2 (31.0-37.0) g/dL RDW 16.4 H (11.5-15.5) % Plt Count 276 (150-450) k/uL MPV 7.2 Neutrophils % (Manual) 39 % Lymphocytes % (Manual) 57 % Monocytes % (Manual) 4 % Neutrophils # (Manual) 4.25 (1.3-7.7) k/uL Lymphocytes # (Manual) 6.21 H (1.0-4.8) k/uL Monocytes # (Manual) 0.44 (0-1.0) k/uL Nucleated RBCs 0 (0-0) /100 WBC Manual Slide Review Performed Anisocytosis Slight Sodium 148 H (137-145) mmol/L Potassium 4.4 (3.5-5.1) mmol/L Chloride 112 H (98-107) mmol/L Carbon Dioxide 26 (22-30) mmol/L Anion Gap 10 mmol/L BUN 28 H (9-20) mg/dL Creatinine 0.90 (0.66-1.25) mg/dL Est GFR (CKD-EPI)AfAm >90 (>60 ml/min/1.73 sqM) Est GFR (CKD-EPI)NonAf >90 (>60 ml/min/1.73 sqM) Glucose 82 (74-99) mg/dL Calcium 8.7 (8.4-10.2) mg/dL Magnesium 2.2 (1.6-2.3) mg/dL Total Bilirubin 0.2 (0.2-1.3) mg/dL AST 44 (17-59) U/L ALT 50 H (4-49) U/L Alkaline Phosphatase 75 (38-126) U/L Total Protein 6.5 (6.3-8.2) g/dL Albumin 3.9 (3.5-5.0) g/dL Lipase 215 (23-300) U/L Serum Alcohol 384 H* mg/dL Disposition Clinical Impression: Alcohol intoxication Disposition: ADMITTED IP TO THIS HOSP Condition: Stable Is patient prescribed a controlled substance at d/c from ED?: No Referrals: Rich Ac Jr, DO [Primary Care Provider] - 1-2 days Time of Disposition: 20:15 Decision to Admit Reason: Admit from EC Decision Date: 08/31/22 Decision Time: 20:15
[2022-08-31] MEDS ORDERED: NALOXONE 0.4 MG/ML 1 ML VIAL IV PRN (20:34)
[2022-08-31] MEDS: SODIUM CHLORIDE 0.9% 1,000 ML IV SCH (20:50)
--- NOTE | 2022-08-31 20:56 | ED ---
Medical Decision Making - Lab Data Result diagrams: 08/31/22 19:07 08/31/22 19:07 Lab Results 08/31/22 08/31/22 Range/Units 19:07 19:07 WBC 10.9 H (3.8-10.6) k/uL RBC 3.83 L (4.30-5.90) m/uL Hgb 11.8 L (13.0-17.5) gm/dL Hct 36.5 L (39.0-53.0) % MCV 95.4 (80.0-100.0) fL MCH 30.7 (25.0-35.0) pg MCHC 32.2 (31.0-37.0) g/dL RDW 16.4 H (11.5-15.5) % Plt Count 276 (150-450) k/uL MPV 7.2 Neutrophils % (Manual) 39 % Lymphocytes % (Manual) 57 % Monocytes % (Manual) 4 % Neutrophils # (Manual) 4.25 (1.3-7.7) k/uL Lymphocytes # (Manual) 6.21 H (1.0-4.8) k/uL Monocytes # (Manual) 0.44 (0-1.0) k/uL Nucleated RBCs 0 (0-0) /100 WBC Manual Slide Review Performed Anisocytosis Slight Sodium 148 H (137-145) mmol/L Potassium 4.4 (3.5-5.1) mmol/L Chloride 112 H (98-107) mmol/L Carbon Dioxide 26 (22-30) mmol/L Anion Gap 10 mmol/L BUN 28 H (9-20) mg/dL Creatinine 0.90 (0.66-1.25) mg/dL Est GFR (CKD-EPI)AfAm >90 (>60 ml/min/1.73 sqM) Est GFR (CKD-EPI)NonAf >90 (>60 ml/min/1.73 sqM) Glucose 82 (74-99) mg/dL Calcium 8.7 (8.4-10.2) mg/dL Magnesium 2.2 (1.6-2.3) mg/dL Total Bilirubin 0.2 (0.2-1.3) mg/dL AST 44 (17-59) U/L ALT 50 H (4-49) U/L Alkaline Phosphatase 75 (38-126) U/L Total Protein 6.5 (6.3-8.2) g/dL Albumin 3.9 (3.5-5.0) g/dL Lipase 215 (23-300) U/L Serum Alcohol 384 H* mg/dL Disposition Clinical Impression: Alcohol intoxication Disposition: ADMITTED IP TO THIS [facility] Condition: Stable Referrals: Rich Ac Jr, [Primary Care Provider] - 1-2 days Procedures - Restraint - Face to Face Restraint Occurrence 1 Patient's Immediate Situation: Endangers self safety, Endangers others' safety Patient's Reaction to the Intervention: Appropriate Patient's Medical & Behavioral Condition: Awake Need to Continue or Terminate Restraint or Seclusion: Continue Face to Face Eval of Restraint Date: 08/31/22 Face to Face Eval of Restraint Time: 20:15
[2022-08-31] MEDS ORDERED: THIAMINE 100 MG/ML 2 ML VIAL IM STA (22:09)
[2022-08-31] MEDS ORDERED: LORazepam 2 MG/ML INJ IV PRN ×2 (22:09)
[2022-08-31] MEDS: LORazepam 2 MG/ML INJ IV PRN (23:57)
[2022-09-01] MEDS: LORazepam 2 MG/ML INJ IV PRN ×2 (02:24→12:47)
[2022-09-01] MEDS ORDERED: THIAMINE 100 MG TAB PO SCH (09:00)
[2022-09-01] MEDS: SODIUM CHLORIDE 0.9% 1,000 ML IV SCH (09:03)
[2022-09-01 09:48] VITALS: BMI 21.8
[2022-09-01] MEDS ORDERED: ETODOLAC 300 MG CAPSULE PO ONE (12:45)
--- NOTE | 2022-09-01 13:55 | P.HPIM ---
History of Present Illness H&P Date: 09/01/22 Chief Complaint: Intoxication This is a 52-year-old gentleman with past medical history of hypertension, hyperlipidemia,known alcoholic and nicotine dependence, recently discharged on 08/26/2022 for similar presentation- admitted with alcohol intoxication, suicidal ideation, depression and multiple other medical issues. Maintained on IV fluid hydration,ciwa protocol, suicide precautions, patient safety coordinator at bedside. Serum alcohol on admission 384. Current CIWA score 2, resting, disorientated- thought today was Tuesday. Afebrile, WBC 10.0, hemoglobin 11.8, platelets 276. Sodium 148, potassium 4.4, bicarb 26, BUN 20, creatinine 0.9. UA negative. Brain CT/C-spine reported no acute intracranial abnormality, no change, negative ct scan cervical spine, no fracture.Denies chest pain, palpitations or shortness of breath. Review of Systems ROS Statement: Those systems with pertinent positive or pertinent negative responses have been documented in the HPI. ROS Other: All systems not noted in ROS Statement are negative. Past Medical History Past Medical History: Hyperlipidemia, Hypertension Additional Past Medical History / Comment(s): Chronic cervical pain. History of Any Multi-Drug Resistant Organisms: None Reported Past Surgical History: Hernia Repair Additional Past Surgical History / Comment(s): R inguinal hernia repair, deviated septum sx, colonoscopy x 2. Past Anesthesia/Blood Transfusion Reactions: No Reported Reaction Past Psychological History: Anxiety, Depression Additional Psychological History / Comment(s): Pt resides with his spouse. HE is normally independent. He states he has had increased depression lately d/t some of his friends have quit calling. Pt states he was suicidal last night and had a gun in his lap but his took it away. Pt states he feels better today and wants to go home. He states he is no longer suicidal. Smoking Status: Current every day smoker Past Alcohol Use History: Heavy Additional Past Alcohol Use History / Comment(s): Pt started smoking in 1983 and is a ppd smoker. He quit smoking once for 12 years. Pt states he has been drinking vodka, at times he drinks 2 fifths in 24 hours. Past Drug Use History: None Reported Additional Drug Use History / Comment(s): Pt states he takes one "drag" of marijuana daily. - Past Family History Mother Family Medical History: No Reported History Additional Family Medical History / Comment(s): Mother April 2022 of covid. Father Family Medical History: No Reported History Additional Family Medical History / Comment(s): Father from an accident. Medications and Allergies Home Medications Medication Instructions Recorded Confirmed Type oxyCODONE HCL [oxyCODONE HCL (IR)] 30 mg PO Q6H 08/25/22 08/31/22 History Acamprosate Calcium [Campral] 666 mg PO TID 08/31/22 08/31/22 History Sertraline [Zoloft] 50 mg PO DAILY 08/31/22 08/31/22 History chlordiazePOXIDE HCl [Librium] 50 mg PO TID 08/31/22 08/31/22 History Allergies Allergy/AdvReac Type Severity Reaction Status Date / Time No Known Allergies Allergy Verified 08/31/22 19:54 Physical Exam Vitals: Vital Signs Temp Pulse Pulse Resp BP BP Pulse Ox 09/01/22 07:27 98.4 F 97 16 163/80 96 09/01/22 00:10 97.7 F 91 22 137/71 97 08/31/22 22:32 90 16 157/87 97 08/31/22 18:14 93 18 143/90 98 Intake and Output 08/31/22 09/01/22 09/01/22 22:59 06:59 14:59 Intake Total 840 Output Total 1099 Balance -259 Intake: Oral 840 Output: Urine 775 Post Void Residual 324 Other: # Voids 1 Weight 68.946 kg 68.946 kg VS: As above GENERAL: alert and oriented x2, disoriented to day of the week ,no acute distress, anxious with generalized tremor. HEENT: Normocephalic, atraumatic. Pupils are round and equally reacting to light. EOMI. No scleral icterus. No conjunctival pallor. CARDIOVASCULAR: S1 and S2 present. Fluctuating mild tachycardia No murmurs, rubs, or gallops. PULMONARY: Chest is clear to auscultation, no wheezing or crackles. ABDOMEN: Soft, nontender, nondistended, normoactive bowel sounds. EXTREMITIES: No cyanosis, clubbing, or pedal edema. NEUROLOGICAL: Gross neurological examination did not reveal any focal deficits. SKIN: Left forehead abrasion ,warm and dry. Results CBC & Chem 7: 08/31/22 19:07 08/31/22 19:07 Labs: Abnormal Lab Results - Last 24 Hours (Table) 08/31/22 08/31/22 Range/Units 19:07 19:07 WBC 10.9 H (3.8-10.6) k/uL RBC 3.83 L (4.30-5.90) m/uL Hgb 11.8 L (13.0-17.5) gm/dL Hct 36.5 L (39.0-53.0) % RDW 16.4 H (11.5-15.5) % Lymphocytes # (Manual) 6.21 H (1.0-4.8) k/uL Sodium 148 H (137-145) mmol/L Chloride 112 H (98-107) mmol/L BUN 28 H (9-20) mg/dL ALT 50 H (4-49) U/L Serum Alcohol 384 H* mg/dL Thrombosis Risk Factor Assmnt - Choose All That Apply Each Factor Represents 1 point: Age 41-60 years Other Risk Factors: No Thrombosis Risk Factor Assessment Total Risk Factor Score: 1 Thrombosis Risk Factor Assessment Level: Low Risk Assessment and Plan Assessment: Alcohol intoxication with DTs in a patient alcohol dependence, serum alcohol 384 on admission. Depression with suicidal ideation Nicotine dependence Mild transaminitis secondary to alcohol liver injury Tachycardia mostly secondary to alcohol withdrawal Insomnia Hypertension Hyperlipidemia Plan: Continue on current medication regime ,monitoring and symptomatic treatment. Maintain suicide precautions, patient safety coordinator. Psychiatry consult in place, recommendations pending. Maintain CIWA protocol. Diarrhea secondary to alcohol abuse, testing negative for C. difficile. Prognosis guarded given multiple complex medical issues. The impression and plan of care has been dictated as directed. : I performed a history and examination of this patient, discussed the same with the dictator. I agree with the dictator's note ,documented as a scribe. Any additional findings or plans will be noted.
--- NOTE | 2022-09-01 13:57 | P.CN ---
Psychiatric Consult - . Consult date: 09/01/22 Consult:: 09/01/22 13:56 IDENTIFYING DATA: This patient is a 52-year-old, , on disability, male with significant history of hypertension and hyperlipidemia and alcoholism who presents to our hospital for acute alcohol intoxication. The patient was recently discharged from the hospital for acute alcohol intoxication on 08/26/2022. HISTORY OF PRESENT ILLNESS: The patient presented to the hospital on 08/31/22, brought into the hospital by EMS for extreme intoxication. In the emergency department he was significantly altered, slurring his words, however was denying any suicidal or homicidal ideation. During his previous presentation on 08/25/2022, the patient did place an unloaded firearm in front of him when intoxicated. The patient admits to the previous situation however denies any attempt or suicidal gestures prior to this admission. Psychiatry was consulted for evaluation of depression and suicidal ideation. Since the patient was discharged on 08/26/2022, the patient has relapsed into heavy alcohol use again. He reports he has been drinking up to a fifth of liquor per day with his last drink being last night. He continues to report elevated stressors including coping with the of his mother and also watching his father slowly deteriorate due to age and illness. He however is vehemently denying any suicidal or homicidal ideation, intention, and/or plan. He reports that he understands he needs to quit alcohol. He states he has caodaism beliefs against suicide and wants to live for himself and for his family. During his last admission for acute alcohol intoxication, he was placed on his previous regimen of zoloft and remeron. Acamprosate was added for alcohol cravings. This provider discussed inpatient substance abuse rehabilitation options but he denies the need at this time. He would prefer outpatient treatment. PAST PSYCHIATRIC HISTORY: Patient has a history of anxiety. He was previously prescribed Zoloft however stopped this medication abruptly prior to his last admission on 08/25/2022. Patient denies any previous psychiatric hospitalizations. Patient denies any psychiatric outpatient follow-up. Patient denies any history of suicide attempts in the past prior to placing the firearm in front of him before his last admission earlier this August. PAST MEDICAL HISTORY: Past Medical History: Hyperlipidemia, Hypertension Additional Past Medical History / Comment(s): Chronic cervical pain. History of Any Multi-Drug Resistant Organisms: None Reported Past Surgical History: Hernia Repair Additional Past Surgical History / Comment(s): R inguinal hernia repair, deviated septum sx, colonoscopy x 2. Past Anesthesia/Blood Transfusion Reactions: No Reported Reaction Past Psychological History: Anxiety, Depression Additional Psychological History / Comment(s): Pt resides with his spouse. HE is normally independent. He states he has had increased depression lately d/t some of his friends have quit calling. Pt states he was suicidal last night and had a gun in his lap but his took it away. Pt states he feels better today and wants to go home. He states he is no longer suicidal. Smoking Status: Current every day smoker Past Alcohol Use History: Heavy Additional Past Alcohol Use History / Comment(s): Pt started smoking in 1983 and is a ppd smoker. He quit smoking once for 12 years. Pt states he has been drinking vodka, at times he drinks 2 fifths in 24 hours. Past Drug Use History: None Reported Additional Drug Use History / Comment(s): Pt states he takes one "drag" of marijuana daily. ALLERGIES: NO KNOWN DRUG ALLERGIES CHEMICAL DEPENDENCY HISTORY: The patient reports 1.5 packs per day of tobacco. The patient drinks 7-8 alcoholic beverages every other day. He approixmates drinking up to a fifth of liquor. He reports that he was sober for 5-6 months however relapsed after his mother . He reports his last drink was last night. FAMILY PSYCHIATRIC/SUBSTANCE USE HISTORY: The patient reports that his mother had anxiety. SOCIAL HISTORY: Patient was born and raised in [facility]. He reports that growing up was bright and happy. He denies any history of trauma. He reports that he was very close with his mother and the rest of his family. He is been to his Mago for 23 years. They have a 22-year-old son who is away at college. 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 MENTAL STATUS EXAM: General Appearance: Patient appears to be stated age is alert, pleasant, and cooperative. Patient appears to have slightly disheveled hygiene and grooming wearing hospital gown with fair eye contact. Behavior: Patient is lying down in bed and appears to be nervous and tremulous. Speech: Patient's speech is fluent and nonpressured. Mood/Affect: Patient reports their mood is "I swear I am fine. I'm okay. I just need to quit alcohol." Affect is anxious. Suicidality/Homicidality: Patient vehemently denies any suicidal or homicidal ideation, intention, and/or plan. Perceptions: Patient denies any visual hallucinations and denies any auditory hallucinations Though content/process: There is no evidence of any delusional thought content and thought process is linear and goal-directed. Memory and concentration: AOX3, grossly intact for the purposes of this session. Can spell "WORLD" backwards Judgment and insight: Fair Vital Signs Temp 98.4 F 09/01/22 07:27 Pulse 97 09/01/22 07:27 Resp 16 09/01/22 07:27 BP 163/80 09/01/22 07:27 Pulse Ox 96 09/01/22 07:27 FiO2 Intake & Output 08/31/22 09/01/22 09/01/22 18:59 06:59 18:59 Intake Total 840 Output Total 1099 Balance -259 Weight 68.946 kg 68.946 kg 68.946 kg Intake: Oral 840 Output: Urine 775 Post Void Residual 324 Other: # Voids 1 Laboratory Results WBC 10.9 k/uL (3.8-10.6) H 08/31/22 19:07 RBC 3.83 m/uL (4.30-5.90) L 08/31/22 19:07 Hgb 11.8 gm/dL (13.0-17.5) L 08/31/22 19:07 Hct 36.5 % (39.0-53.0) L 08/31/22 19:07 MCV 95.4 fL (80.0-100.0) 08/31/22 19:07 MCH 30.7 pg (25.0-35.0) 08/31/22 19:07 MCHC 32.2 g/dL (31.0-37.0) 08/31/22 19:07 RDW 16.4 % (11.5-15.5) H 08/31/22 19:07 Plt Count 276 k/uL (150-450) 08/31/22 19:07 MPV 7.2 08/31/22 19:07 Neutrophils % (Manual) 39 % 08/31/22 19:07 Lymphocytes % (Manual) 57 % 08/31/22 19:07 Monocytes % (Manual) 4 % 08/31/22 19:07 Neutrophils # (Manual) 4.25 k/uL (1.3-7.7) 08/31/22 19:07 Lymphocytes # (Manual) 6.21 k/uL (1.0-4.8) H 08/31/22 19:07 Monocytes # (Manual) 0.44 k/uL (0-1.0) 08/31/22 19:07 Nucleated RBCs 0 /100 WBC (0-0) 08/31/22 19:07 Manual Slide Review Performed 08/31/22 19:07 Anisocytosis Slight 08/31/22 19:07 Sodium 148 mmol/L (137-145) H 08/31/22 19:07 Potassium 4.4 mmol/L (3.5-5.1) 08/31/22 19:07 Chloride 112 mmol/L (98-107) H 08/31/22 19:07 Carbon Dioxide 26 mmol/L (22-30) 08/31/22 19:07 Anion Gap 10 mmol/L 08/31/22 19:07 BUN 28 mg/dL (9-20) H 08/31/22 19:07 Creatinine 0.90 mg/dL (0.66-1.25) 08/31/22 19:07 Est GFR (CKD-EPI)AfAm >90 (>60 ml/min/1.73 sqM) 08/31/22 19:07 Est GFR (CKD-EPI)NonAf >90 (>60 ml/min/1.73 sqM) 08/31/22 19:07 Glucose 82 mg/dL (74-99) 08/31/22 19:07 Calcium 8.7 mg/dL (8.4-10.2) 08/31/22 19:07 Magnesium 2.2 mg/dL (1.6-2.3) 08/31/22 19:07 Total Bilirubin 0.2 mg/dL (0.2-1.3) 08/31/22 19:07 AST 44 U/L (17-59) 08/31/22 19:07 ALT 50 U/L (4-49) H 08/31/22 19:07 Alkaline Phosphatase 75 U/L (38-126) 08/31/22 19:07 Total Protein 6.5 g/dL (6.3-8.2) 08/31/22 19:07 Albumin 3.9 g/dL (3.5-5.0) 08/31/22 19:07 Lipase 215 U/L (23-300) 08/31/22 19:07 Serum Alcohol 384 mg/dL H* 08/31/22 19:07 IMPRESSIONS: Alcohol use disorder Alcohol induced depressive disorder Acute bereavement PLAN: -Continue your medical management for alcohol withdrawal -At this time patient DOES NOT meet criteria for inpatient psychiatric admission. Primary issue is alcohol use disorder and not mood disorder. Protective factors include the patient's supportive family, removal firearms, strong caodaism beliefs against suicide, and future in goal orientation. Risk factors include alcohol use, age, and gender demographic. -Patient's was educated on the petition and certification during the last admission. -Would recommend the following medication changes/additions: Remeron 15 mg by mouth at bedtime for depression/insomnia Zoloft 50 mg by mouth at bedtime for depression/anxiety Acamprosate 333 mg by mouth 3 times a day for alcohol cessation -Discontinue one-to-one sitter -Grief counseling to address acute bereavement and motivational interviewing to address alcohol cessation was discussed in great detail with the patient -Recommend social work/case management to arrange for outpatient psychiatric follow-up and resources for alcohol cessation. -Patient is cleared psychiatrically for discharge. Primary diagnosis of severe alcohol use disorder. Provider discussed inpatient substance abuse rehabilitation to which the patient declined. 09/01/22 13:57
[2022-09-01 14:55] VITALS: BP 145/83; PULSE 109; RESP 18; TEMP 98.3
[2022-09-01] MEDS ORDERED: ACAMPROSATE CALCIUM 333 MG TABLET.DR PO SCH (16:00)
[2022-09-01] MEDS ORDERED: methylPREDNISolone SOD SUCCI 125 MG/2 ML VIAL IV STA ×2 (16:10)
--- NOTE | 2022-09-01 17:25 | P.DS ---
Providers Date of admission: 08/31/22 20:34 Expected date of discharge: 09/01/22 Attending physician: Rich Ac Consults: 09/01/22 01:11 Consult Physician Routine Consulting Provider: Psychiatry - [facility] Psychiatry Consult Reason/Comments: suicide precautions, depression Do you want consulting provider notified?: Yes, Notify in am Primary care physician: [facility] Course: This is a 52-year-old gentleman with past medical history of hypertension, hyperlipidemia,known alcoholic and nicotine dependence, recently discharged on 08/26/2022 for similar presentation- admitted with alcohol intoxication, suicidal ideation, depression and multiple other medical issues. Maintained on IV fluid hydration,ciwa protocol, suicide precautions, director safety at bedside. Serum alcohol on admission 384. Current CIWA score 2, resting, disorientated- thought today was Tuesday. Afebrile, WBC 10.0, hemoglobin 11.8, platelets 276. Sodium 148, potassium 4.4, bicarb 26, BUN 20, creatinine 0.9. UA negative. Brain CT/C-spine reported no acute intracranial abnormality, no change, negative ct scan cervical spine, no fracture.Denies chest pain, palpitations or shortness of breath. September 01, 2022: patient was seen by psychiatry. Medication is for change. They had a long discussion regarding his alcohol drinking, his narcotics and his mood. He does not want to continue to drink, and believes that he could quit with some help as laid out by psychiatry. Some medication's were also given to him to help him abstain from alcohol.Upon Patient Condition at Discharge: Fair Plan - Discharge Summary Discharge Rx Participant: No New Discharge Prescriptions: New Mirtazapine [Remeron] 15 mg PO HS #30 tab Thiamine [Vitamin B-1] 100 mg PO DAILY #30 cap Acamprosate Calcium [Campral] 333 mg PO TID #90 tab Continue oxyCODONE HCL [oxyCODONE HCL (IR)] 30 mg PO Q6H Acamprosate Calcium [Campral] 666 mg PO TID Sertraline [Zoloft] 50 mg PO DAILY Discontinued chlordiazePOXIDE HCl [Librium] 50 mg PO TID Discharge Medication List oxyCODONE HCL [oxyCODONE HCL (IR)] 30 mg PO Q6H 08/25/22 [History] Acamprosate Calcium [Campral] 666 mg PO TID 08/31/22 [History] Sertraline [Zoloft] 50 mg PO DAILY 08/31/22 [History] Acamprosate Calcium [Campral] 333 mg PO TID #90 tab 09/01/22 [Rx] Mirtazapine [Remeron] 15 mg PO HS #30 tab 09/01/22 [Rx] Thiamine [Vitamin B-1] 100 mg PO DAILY #30 cap 09/01/22 [Rx] Follow up Appointment(s)/Referral(s): Rich Ac Jr, DO [Primary Care Provider] - 1-2 days Discharge/Stand Alone Forms: [facility], Outpatient Counseling, In Substance Abuse Facilities Discharge Disposition: HOME SELF-CARE
[2022-09-01] MEDS ORDERED: KETOROLAC 15 MG/ML 1 ML VIAL IVP SCH (18:00)
[2022-09-01] MEDS ORDERED: MIRTAZAPINE 15 MG TAB PO SCH (21:00)
[2022-09-01] MEDS ORDERED: SERTRALINE 50 MG TAB PO SCH (21:00)
== END 2022-09-01 17:53 | disposition home or self-care (01) | DRG 897 ==
LOC: EC 18:13 → 4SSUR 20:34
PROVIDERS: ADMIT Family Medicine; ATTEND Family Medicine
PROC: HZ2ZZZZ Detoxification Services for Substance Abuse Treatment (ICD-10-PCS; principal; 2022-08-31)
DX: F10.229 Alcohol dependence with intoxication, unspecified (principal); R45.851 Suicidal ideations; I10 Essential (primary) hypertension; F10.231 Alcohol dependence with withdrawal delirium; T51.0X1A Toxic effect of ethanol, accidental (unintentional), initial encounter; G89.29 Other chronic pain; M54.2 Cervicalgia; Y90.8 Blood alcohol level of 240 mg/100 ml or more; E78.5 Hyperlipidemia, unspecified; F41.9 Anxiety disorder, unspecified; G47.00 Insomnia, unspecified; Z79.899 Other long term (current) drug therapy; Z87.891 Personal history of nicotine dependence
CPT/HCPCS: 36415; 70450; 72125; 80053; 80320; 82075; 83690; 83735; 85025; 96372; 96374; 96376; 99285

== ENCOUNTER 2022-12-02 11:12 | Emergency (ER) | payer BC ==
[2022-12-02 11:21] VITALS: TEMP 98.2
[2022-12-02] MEDS ORDERED: SODIUM CHLORIDE 0.9% 1,000 ML IV STA (12:31)
[2022-12-02] MEDS ORDERED: LORazepam 2 MG/ML INJ IV PRN ×3 (12:32)
[2022-12-02] MEDS ORDERED: THIAMINE 100 MG/ML 2 ML VIAL IM STA (12:32)
--- NOTE | 2022-12-02 12:37 | ED ---
General Adult HPI - General Source: patient, family (), RN notes reviewed, old records reviewed Mode of arrival: ambulatory Limitations: no limitations - History of Present Illness -: days(s) (3) Location: abdomen Severity scale (1-10): 6 Consistency: constant Associated Symptoms: malaise, shortness of breath, other (Diarrhea) <Eddie Rendon - Last Filed: 12/02/22 15:40> <Chaitanya Shaw - Last Filed: 12/02/22 17:19> - General Chief complaint: Psychiatric Symptoms Stated complaint: SOB Time Seen by Provider: 12/02/22 11:37 - History of Present Illness Initial comments: This is a 52-year-old male alert and oriented that presents to the emergency room with his with complaints of inability to sleep for the past 3 days. States going through withdrawal from oxycodone. States he attempted suicide by taking approximately 15 sleeping pills 3 days ago. Is still drinking a fifth a day. Last drink yesterday. Feels tremulous today with abdominal pain and diarrhea. Patient states that for the past couple of months he has been feeling short of breath with exertion. Denies any chest pain. at bedside states that he does have hypothyroidism and has not been taking his medication. Patient admits to depression with recent loss of his mother. (Eddie Rendon) - Related Data Home Medications Medication Instructions Recorded Confirmed Sertraline [Zoloft] 50 mg PO DAILY 08/31/22 12/02/22 Atorvastatin [Lipitor] 20 mg PO DAILY 12/02/22 12/02/22 DULoxetine HCL [Cymbalta] 60 mg PO BID 12/02/22 12/02/22 Glucosamine/Chondr Lovell A Sod [Osteo 1 tab PO DAILY 12/02/22 12/02/22 Bi-Flex Caplet] Levothyroxine Sodium [Synthroid] 50 mcg PO DAILY 12/02/22 12/02/22 Loratadine 10 mg PO DAILY 12/02/22 12/02/22 Multivit-Mins/Iron/Folic/Lycop 1 tab PO DAILY 12/02/22 12/02/22 [Centrum Men's Tablet] Naproxen [Naprosyn] 500 mg PO BID 12/02/22 12/02/22 Olmesartan Medoxomil 40 mg PO DAILY 12/02/22 12/02/22 Potassium Gluconate 99 mg PO DAILY 12/02/22 12/02/22 QUEtiapine [SEROquel] 50 mg PO HS 12/02/22 12/02/22 buPROPion SR [Wellbutrin SR] 150 mg PO BID 12/02/22 12/02/22 busPIRone HCL 15 mg PO BID 12/02/22 12/02/22 cloNIDine HCL [Catapres] 0.1 mg PO TID 12/02/22 12/02/22 Previous Rx's Medication Instructions Recorded Thiamine [Vitamin B-1] 100 mg PO DAILY #30 cap 09/01/22 Allergies Allergy/AdvReac Type Severity Reaction Status Date / Time No Known Allergies Allergy Verified 12/02/22 14:31 Review of Systems ROS Other: All systems not noted in ROS Statement are negative. <Eddie Rendon - Last Filed: 12/02/22 15:40> ROS Other: All systems not noted in ROS Statement are negative. <Chaitanya Shaw - Last Filed: 12/02/22 17:19> ROS Statement: Those systems with pertinent positive or pertinent negative responses have been documented in the HPI. Past Medical History Past Medical History: Hyperlipidemia, Hypertension Additional Past Medical History / Comment(s): Chronic cervical pain. History of Any Multi-Drug Resistant Organisms: None Reported Past Surgical History: Hernia Repair Additional Past Surgical History / Comment(s): R inguinal hernia repair, deviated septum sx, colonoscopy x 2. Past Anesthesia/Blood Transfusion Reactions: No Reported Reaction Past Psychological History: Anxiety, Depression Smoking Status: Current every day smoker Past Alcohol Use History: Heavy Past Drug Use History: None Reported - Past Family History Mother Family Medical History: No Reported History Additional Family Medical History / Comment(s): Mother April 2022 of covid. Father Family Medical History: No Reported History Additional Family Medical History / Comment(s): Father from an accident. <Eddie Rendon - Last Filed: 12/02/22 15:40> General Exam Limitations: no limitations General appearance: alert, in no apparent distress Head exam: Present: atraumatic Eye exam: Present: normal appearance. Absent: scleral icterus, conjunctival injection, periorbital swelling, periorbital tenderness ENT exam: Present: mucous membranes moist Neck exam: Absent: meningismus Respiratory exam: Present: normal lung sounds bilaterally. Absent: respiratory distress, accessory muscle use Cardiovascular Exam: Present: tachycardia GI/Abdominal exam: Present: soft. Absent: distended, tenderness, guarding, rebound, rigid Extremities exam: Present: normal capillary refill. Absent: pedal edema Back exam: Absent: tenderness Neurological exam: Present: alert, oriented X3 Psychiatric exam: Present: depressed, anxious, suicidal ideation. Absent: homicidal ideation Skin exam: Present: warm, dry, normal color. Absent: cyanosis, diaphoretic, petechiae, pallor <Eddie Rendon - Last Filed: 12/02/22 15:40> Course Vital Signs 12/02/22 11:16 Temperature 98.2 F Pulse Rate 121 H Respiratory 22 Rate Blood Pressure 131/67 O2 Sat by Pulse 96 Oximetry EKG Findings - EKG Results: EKG shows: tachycardia (Sinus tachycardia with a ventricular rate of 103, [place] interval 0.164, QRS 0.85, QTC 0.413, no significant change compared to old 11/19/2018) <Eddie Rendon - Last Filed: 12/02/22 15:40> Medical Decision Making - Lab Data Result diagrams: 12/02/22 12:39 12/02/22 12:39 <Eddie Rendon - Last Filed: 12/02/22 15:40> - Lab Data Result diagrams: 12/02/22 12:39 12/02/22 12:39 <Chaitanya Shaw - Last Filed: 12/02/22 17:19> - Medical Decision Making Patient presents with depression and suicide attempt 3 days ago by taking over 15 sleeping pills. Also states going through withdrawal from oxycodone and alcohol which he normally drinks a fifth a day. Last drink yesterday. at bedside states he has been short of breath for the past couple months worse with exertion. Denies any chest pain. No cough and no fevers. No evidence of leukocytosis. Hemoglobin is 10.5 hematocrit 30.9. Previous hemoglobin in August 25. Chest x-ray interpreted by me shows no focal consolidation, cardiac silhouette is normal size. Trachea midline. Radiologist interpretation no acute cardiopulmonary disease or process. D-dimer elevated at 1.[address] angiogram shows no evidence of pulmonary embolism. No evidence for acute thoracic process. 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 Small hiatal hernia. Troponin negative at 0.012. EKG shows sinus tachycardia with a ventricular rate of 103, [place] interval 0.164, QRS 0.85, QTC 0.413. Significant change compared to old 11/19/2018 Urine drug screen positive for marijuana. Serum alcohol level 0.153, coronavirus negative. Patient is medically cleared to be seen by EPS. (Eddie Rendon) EPS evaluated the patient and spoke with the psychiatrist and determined the patient could have a significant clinical home because he was no longer stating he was suicidal and family was with the patient and they were in agreement (Chaitanya Shaw) - Lab Data Lab Results 12/02/22 12/02/22 12/02/22 Range/Units 12:39 12:39 12:39 WBC 7.7 (3.8-10.6) k/uL RBC 3.34 L (4.30-5.90) m/uL Hgb 10.5 L (13.0-17.5) gm/dL Hct 30.9 L (39.0-53.0) % MCV 92.2 (80.0-100.0) fL MCH 31.5 (25.0-35.0) pg MCHC 34.1 (31.0-37.0) g/dL RDW 15.3 (11.5-15.5) % Plt Count 289 (150-450) k/uL MPV 7.4 Neutrophils % 60 % Lymphocytes % 32 % Monocytes % 5 % Eosinophils % 0 % Basophils % 1 % Neutrophils # 4.6 (1.3-7.7) k/uL Lymphocytes # 2.5 (1.0-4.8) k/uL Monocytes # 0.4 (0-1.0) k/uL Eosinophils # 0.0 (0-0.7) k/uL Basophils # 0.0 (0-0.2) k/uL PT 9.4 (9.0-12.0) sec INR 0.9 (<1.2) APTT 22.4 (22.0-30.0) sec D-Dimer 1.13 H (<0.60) mg/L FEU Sodium (137-145) mmol/L Potassium (3.5-5.1) mmol/L Chloride (98-107) mmol/L Carbon Dioxide (22-30) mmol/L Anion Gap mmol/L BUN (9-20) mg/dL Creatinine (0.66-1.25) mg/dL Est GFR (CKD-EPI)AfAm (>60 ml/min/1.73 sqM) Est GFR (CKD-EPI)NonAf (>60 ml/min/1.73 sqM) Glucose (74-99) mg/dL Calcium (8.4-10.2) mg/dL Magnesium (1.6-2.3) mg/dL Total Bilirubin (0.2-1.3) mg/dL AST (17-59) U/L ALT (4-49) U/L Alkaline Phosphatase (38-126) U/L Troponin I (0.000-0.034) ng/mL NT-Pro-B Natriuret Pep pg/mL Total Protein (6.3-8.2) g/dL Albumin (3.5-5.0) g/dL TSH (0.465-4.680) mIU/L Urine Opiates Screen Not Detected (NotDetected) Ur Oxycodone Screen Not Detected (NotDetected) Urine Methadone Screen Not Detected (NotDetected) Ur Propoxyphene Screen Not Detected (NotDetected) Ur Barbiturates Screen Not Detected (NotDetected) U Tricyclic Antidepress Not Detected (NotDetected) Ur Phencyclidine Scrn Not Detected (NotDetected) Ur Amphetamines Screen Not Detected (NotDetected) U Methamphetamines Scrn Not Detected (NotDetected) U Benzodiazepines Scrn Not Detected (NotDetected) Urine Cocaine Screen Not Detected (NotDetected) U Marijuana (THC) Screen Detected H (NotDetected) Serum Alcohol mg/dL Coronavirus (PCR) (Not Detectd) 12/02/22 12/02/22 12/02/22 Range/Units 12:39 12:39 12:39 WBC (3.8-10.6) k/uL RBC (4.30-5.90) m/uL Hgb (13.0-17.5) gm/dL Hct (39.0-53.0) % MCV (80.0-100.0) fL MCH (25.0-35.0) pg MCHC (31.0-37.0) g/dL RDW (11.5-15.5) % Plt Count (150-450) k/uL MPV Neutrophils % % Lymphocytes % % Monocytes % % Eosinophils % % Basophils % % Neutrophils # (1.3-7.7) k/uL Lymphocytes # (1.0-4.8) k/uL Monocytes # (0-1.0) k/uL Eosinophils # (0-0.7) k/uL Basophils # (0-0.2) k/uL PT (9.0-12.0) sec INR (<1.2) APTT (22.0-30.0) sec D-Dimer (<0.60) mg/L FEU Sodium 137 (137-145) mmol/L Potassium 3.9 (3.5-5.1) mmol/L Chloride 104 (98-107) mmol/L Carbon Dioxide 23 (22-30) mmol/L Anion Gap 10 mmol/L BUN 23 H (9-20) mg/dL Creatinine 0.89 (0.66-1.25) mg/dL Est GFR (CKD-EPI)AfAm >90 (>60 ml/min/1.73 sqM) Est GFR (CKD-EPI)NonAf >90 (>60 ml/min/1.73 sqM) Glucose 78 (74-99) mg/dL Calcium 8.7 (8.4-10.2) mg/dL Magnesium 1.8 (1.6-2.3) mg/dL Total Bilirubin 0.4 (0.2-1.3) mg/dL AST 64 H (17-59) U/L ALT 53 H (4-49) U/L Alkaline Phosphatase 119 (38-126) U/L Troponin I <0.012 (0.000-0.034) ng/mL NT-Pro-B Natriuret Pep 184 pg/mL Total Protein 6.3 (6.3-8.2) g/dL Albumin 3.6 (3.5-5.0) g/dL TSH 2.950 (0.465-4.680) mIU/L Urine Opiates Screen (NotDetected) Ur Oxycodone Screen (NotDetected) Urine Methadone Screen (NotDetected) Ur Propoxyphene Screen (NotDetected) Ur Barbiturates Screen (NotDetected) U Tricyclic Antidepress (NotDetected) Ur Phencyclidine Scrn (NotDetected) Ur Amphetamines Screen (NotDetected) U Methamphetamines Scrn (NotDetected) U Benzodiazepines Scrn (NotDetected) Urine Cocaine Screen (NotDetected) U Marijuana (THC) Screen (NotDetected) Serum Alcohol 153 mg/dL Coronavirus (PCR) (Not Detectd) 12/02/22 Range/Units 13:46 WBC (3.8-10.6) k/uL RBC (4.30-5.90) m/uL Hgb (13.0-17.5) gm/dL Hct (39.0-53.0) % MCV (80.0-100.0) fL MCH (25.0-35.0) pg MCHC (31.0-37.0) g/dL RDW (11.5-15.5) % Plt Count (150-450) k/uL MPV Neutrophils % % Lymphocytes % % Monocytes % % Eosinophils % % Basophils % % Neutrophils # (1.3-7.7) k/uL Lymphocytes # (1.0-4.8) k/uL Monocytes # (0-1.0) k/uL Eosinophils # (0-0.7) k/uL Basophils # (0-0.2) k/uL PT (9.0-12.0) sec INR (<1.2) APTT (22.0-30.0) sec D-Dimer (<0.60) mg/L FEU Sodium (137-145) mmol/L Potassium (3.5-5.1) mmol/L Chloride (98-107) mmol/L Carbon Dioxide (22-30) mmol/L Anion Gap mmol/L BUN (9-20) mg/dL Creatinine (0.66-1.25) mg/dL Est GFR (CKD-EPI)AfAm (>60 ml/min/1.73 sqM) Est GFR (CKD-EPI)NonAf (>60 ml/min/1.73 sqM) Glucose (74-99) mg/dL Calcium (8.4-10.2) mg/dL Magnesium (1.6-2.3) mg/dL Total Bilirubin (0.2-1.3) mg/dL AST (17-59) U/L ALT (4-49) U/L Alkaline Phosphatase (38-126) U/L Troponin I (0.000-0.034) ng/mL NT-Pro-B Natriuret Pep pg/mL Total Protein (6.3-8.2) g/dL Albumin (3.5-5.0) g/dL TSH (0.465-4.680) mIU/L Urine Opiates Screen (NotDetected) Ur Oxycodone Screen (NotDetected) Urine Methadone Screen (NotDetected) Ur Propoxyphene Screen (NotDetected) Ur Barbiturates Screen (NotDetected) U Tricyclic Antidepress (NotDetected) Ur Phencyclidine Scrn (NotDetected) Ur Amphetamines Screen (NotDetected) U Methamphetamines Scrn (NotDetected) U Benzodiazepines Scrn (NotDetected) Urine Cocaine Screen (NotDetected) U Marijuana (THC) Screen (NotDetected) Serum Alcohol mg/dL Coronavirus (PCR) Not Detected (Not Detectd) Disposition <Eddie Rendon - Last Filed: 12/02/22 15:40> Is patient prescribed a controlled substance at d/c from ED?: No Time of Disposition: 17:18 <Chaitanya Shaw - Last Filed: 12/02/22 17:19> Clinical Impression: Situational depression, Alcohol intoxication, Overdose Disposition: HOME SELF-CARE Instructions (If sedation given, give patient instructions): Alcohol Intoxication (ED), Depression (ED) Referrals: Rich Ac Jr, DO [Primary Care Provider] - 1-2 days
[2022-12-02 12:58] LABS: Basophils % (A) 1 %; Eosinophils % (A) 0 %; HCT 30.9 % (39.0-53.0); HGB 10.5 gm/dL (13.0-17.5); Lymphocytes # (A) 2.5 k/uL (1.0-4.8); Lymphocytes % (A) 32 %; MCH 31.5 pg (25.0-35.0); MCHC 34.1 g/dL (31.0-37.0); MCV 92.2 fL (80.0-100.0); Mean Platelet Volume 7.4; Monocytes # (A) 0.4 k/uL (0-1.0); Monocytes % (A) 5 %; Neutrophils # (A) 4.6 k/uL (1.3-7.7); Neutrophils % (A) 60 %; Platelet Count 289 k/uL (150-450); RBC 3.34 m/uL (4.30-5.90); RDW 15.3 % (11.5-15.5); WBC 7.7 k/uL (3.8-10.6)
[2022-12-02 13:03] LABS: ALT 53 U/L (4-49); AST 64 U/L (17-59); African American GFR (CKD) >90 (>60 ml/min/1.73 sqM); Albumin 3.6 g/dL (3.5-5.0); Alkaline Phosphatase 119 U/L (38-126); Anion Gap 10 mmol/L; Blood Urea Nitrogen 23 mg/dL (9-20); Calcium 8.7 mg/dL (8.4-10.2); Carbon Dioxide 23 mmol/L (22-30); Chloride 104 mmol/L (98-107); Glucose 78 mg/dL (74-99); Magnesium 1.8 mg/dL (1.6-2.3); Non-African American GFR(CKD) >90 (>60 ml/min/1.73 sqM); Potassium 3.9 mmol/L (3.5-5.1); Sodium 137 mmol/L (137-145); Total Bilirubin 0.4 mg/dL (0.2-1.3); Total Protein 6.3 g/dL (6.3-8.2)
[2022-12-02 13:16] LABS: INR 0.9 (<1.2); Partial Thromboplastin Time 22.4 sec (22.0-30.0)
[2022-12-02 13:20] LABS: Alcohol 153 mg/dL
--- NOTE | 2022-12-02 13:22 | XR ---
EXAMINATION TYPE: XR chest 2V DATE OF EXAM: 12/02/2022 1:18 PM COMPARISON: Chest radiographs from 08/25/2022 TECHNIQUE: XR chest 2V Frontal and lateral views of the chest. CLINICAL INDICATION:Male, 52 years old with history of difficulty breathing; FINDINGS: Lungs/Pleura: There is no evidence of pleural effusion, focal consolidation, or pneumothorax. Biapic al pleural thickening. Pulmonary vascularity: Unremarkable. Heart/mediastinum: Cardiomediastinal silhouette is unremarkable. Musculoskeletal: No acute osseous pathology. Mild degenerative changes of the thoracic spine. IMPRESSION: No acute cardiopulmonary disease/process.
[2022-12-02 13:32] LABS: Prothrombin Time 9.4 sec (9.0-12.0)
[2022-12-02 13:35] LABS: Amphetamine Screen,Urine Not Detected (NotDetected); Barbiturate Screen,Urine Not Detected (NotDetected); Benzodiazepines Screen,Urine Not Detected (NotDetected); Cocaine Screen,Urine Not Detected (NotDetected); Methadone Screen, Urine Not Detected (NotDetected); Opiate Screen,Urine Not Detected (NotDetected); Oxycodone Screen, Urine Not Detected (NotDetected); Phencyclidine Screen,Urine Not Detected (NotDetected); Tricyclic Antidepressant,Urine Not Detected (NotDetected); Urn Cannabinoid Scrn Detected (NotDetected)
[2022-12-02] MEDS ORDERED: LORazepam 2 MG/ML INJ IV STA (14:19)
--- NOTE | 2022-12-02 15:26 | CT ---
EXAMINATION TYPE: CT angio chest CT DLP: 343.8 mGycm, Automated exposure control for dose reduction was used. DATE OF EXAM: 12/02/2022 3:17 PM COMPARISON: None CLINICAL INDICATION:Male, 52 years old with history of elevated dimer; SOB TECHNIQUE/CONTRAST: CTA scan of the thorax is performed with IV Contrast, patient injected with 100 mL of Isovue 370, pul monary embolism protocol. MIP images are created and reviewed these [facility] FINDINGS: Pulmonary Artery: There is no evidence for a filling defect within the pulmonary vasculature to sugge st acute pulmonary embolism. The pulmonary artery is of normal size. Lungs/Pleura: No evidence of focal consolidation, pleural effusion or pneumothorax. Airway: Large airways are patent. Heart: Heart is within normal limits for size. 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 Scattered atherosclerosis of the arterial vasculature. Mediastinum: No gross evidence of adenopathy. Small hiatal hernia. Musculoskeletal: No acute osseous abnormalities, mild multilevel disc degeneration changes throughout the visualized spine. There is straightening of the spine. Soft Tissues: Unremarkable. Lower neck: No significant findings. Upper Abdomen: Extrarenal pelvis on the left kidney. IMPRESSION: 1. No evidence of pulmonary embolism. No evidence for acute thoracic process. 2. 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 Small hiatal hernia
[2022-12-02 17:41] VITALS: BP 127/84; PULSE 115; RESP 18
[2022-12-03] MEDS ORDERED: THIAMINE 100 MG TAB PO SCH (09:00)
== END 2022-12-02 17:49 | disposition home or self-care (01) ==
LOC: EC 11:12
DX: F43.21 Adjustment disorder with depressed mood (principal); F10.129 Alcohol abuse with intoxication, unspecified; T40.2X2A Poisoning by other opioids, intentional self-harm, initial encounter; K44.9 Diaphragmatic hernia without obstruction or gangrene; E78.5 Hyperlipidemia, unspecified; I10 Essential (primary) hypertension; F41.9 Anxiety disorder, unspecified; F32.A Depression, unspecified; F17.200 Nicotine dependence, unspecified, uncomplicated; Z79.899 Other long term (current) drug therapy; Z20.822 Contact with and (suspected) exposure to COVID-19
CPT/HCPCS: 82075; 36415; 93005; 85379; 83880; 80053; 84443; 83735; 84484; 85025; 85610; 85730; 80306; 80320; 87635; 71046; 71275; 99285; 96374; 96376; 96361; 96372; J2060; J3411; Q9967

== ENCOUNTER 2022-12-04 14:06 | Inpatient (IN) | payer BC ==
[2022-12-04] MEDS ORDERED: SODIUM CHLORIDE 0.9% 1,000 ML IV ONE ×2 (14:16→15:49)
--- NOTE | 2022-12-04 14:16 | ED ---
General Adult HPI - General Chief complaint: Fall Stated complaint: ETOH-Fall Time Seen by Provider: 12/04/22 14:15 Source: patient, RN notes reviewed Mode of arrival: EMS Limitations: altered mental status, physical limitation - History of Present Illness Initial comments: 52-year-old male with a past medical history of EtOH abuse presents to the emergency department via EMS the chief complaint of fall. Per EMS patient was in the bathroom and fell backwards onto his head. It was an unwitnessed fall. He is unsure if he lost consciousness. Denies any anticoagulant use. EMS also reports that patient is a daily drinker and has drank approximately 1/5 of vodka today. Denies any suicidal or homicidal ideation. He denies any drug use. He denies any dizziness, lightheadedness, headache, chest pain, shortness of breath, abdominal pain, nausea, vomiting, diarrhea. - Related Data Home Medications Medication Instructions Recorded Confirmed Sertraline [Zoloft] 50 mg PO DAILY 08/31/22 12/04/22 Atorvastatin [Lipitor] 20 mg PO DAILY 12/02/22 12/04/22 DULoxetine HCL [Cymbalta] 60 mg PO BID 12/02/22 12/04/22 Glucosamine/Chondr Lovell A Sod [Osteo 1 tab PO DAILY 12/02/22 12/04/22 Bi-Flex Caplet] Levothyroxine Sodium [Synthroid] 50 mcg PO DAILY 12/02/22 12/04/22 Loratadine 10 mg PO DAILY 12/02/22 12/04/22 Multivit-Mins/Iron/Folic/Lycop 1 tab PO DAILY 12/02/22 12/04/22 [Centrum Men's Tablet] Naproxen [Naprosyn] 500 mg PO BID 12/02/22 12/04/22 Olmesartan Medoxomil 40 mg PO DAILY 12/02/22 12/04/22 Potassium Gluconate 99 mg PO DAILY 12/02/22 12/04/22 QUEtiapine [SEROquel] 50 mg PO HS 12/02/22 12/04/22 buPROPion SR [Wellbutrin SR] 150 mg PO BID 12/02/22 12/04/22 busPIRone HCL 15 mg PO BID 12/02/22 12/04/22 cloNIDine HCL [Catapres] 0.1 mg PO TID 12/02/22 12/04/22 Previous Rx's Medication Instructions Recorded Thiamine [Vitamin B-1] 100 mg PO DAILY #30 cap 09/01/22 Allergies Allergy/AdvReac Type Severity Reaction Status Date / Time No Known Allergies Allergy Verified 12/04/22 15:42 Review of Systems ROS Statement: Those systems with pertinent positive or pertinent negative responses have been documented in the HPI. ROS Other: All systems not noted in ROS Statement are negative. Past Medical History Past Medical History: Hyperlipidemia, Hypertension Additional Past Medical History / Comment(s): Chronic cervical pain. History of Any Multi-Drug Resistant Organisms: None Reported Past Surgical History: Hernia Repair Additional Past Surgical History / Comment(s): R inguinal hernia repair, deviated septum sx, colonoscopy x 2. Past Anesthesia/Blood Transfusion Reactions: No Reported Reaction Past Psychological History: Anxiety, Depression Smoking Status: Current every day smoker Past Alcohol Use History: Heavy Past Drug Use History: None Reported - Past Family History Mother Family Medical History: No Reported History Additional Family Medical History / Comment(s): Mother April 2022 of covid. Father Family Medical History: No Reported History Additional Family Medical History / Comment(s): Father from an accident. General Exam Limitations: altered mental status, physical limitation General appearance: alert, in no apparent distress, appears intoxicated Head exam: Present: normocephalic, normal inspection, other (5 cm laceration to back with no active bleeding. No crepitus noted.). Absent: atraumatic Eye exam: Present: normal appearance, PERRL, EOMI. Absent: scleral icterus, conjunctival injection, periorbital swelling Pupils: Present: normal accommodation, mydriatic ENT exam: Present: normal exam, normal oropharynx, mucous membranes moist Neck exam: Present: normal inspection. Absent: tenderness, meningismus, lymphadenopathy Respiratory exam: Present: normal lung sounds bilaterally. Absent: respiratory distress, wheezes, rales, rhonchi, stridor Cardiovascular Exam: Present: regular rate, normal rhythm, normal heart sounds. Absent: systolic murmur, diastolic murmur, rubs, gallop, clicks GI/Abdominal exam: Present: soft, normal bowel sounds. Absent: distended, tenderness, guarding, rebound, rigid Extremities exam: Present: normal inspection, full ROM, normal capillary refill. Absent: tenderness, pedal edema, joint swelling, calf tenderness Back exam: Present: normal inspection Neurological exam: Present: alert, oriented X3, CN II-XII intact Psychiatric exam: Present: normal affect, normal mood Skin exam: Present: warm, dry, intact, normal color. Absent: rash Course Vital Signs 12/04/22 12/04/22 12/04/22 14:10 15:17 17:19 Temperature 97.8 F Pulse Rate 82 81 85 Respiratory 18 17 17 Rate Blood Pressure 119/70 104/44 106/50 O2 Sat by Pulse 100 100 100 Oximetry Procedures - Laceration Laceration #1 Indication: laceration Site: scalp Description: linear Depth: simple, single layer Patient Tolerated Procedure: well, no complications Additional Comments: 9 Lilia placed with RN Med present. Patient tolerated well, no complications Medical Decision Making - Medical Decision Making Was pt. sent in by a medical professional or institution (, PA, CRAB MEAT PROCESSOR, urgent care, hospital, or senior living...) When possible be specific @ -[No] Did you speak to anyone other than the patient for history (EMS, parent, family, police, friend...)? What history was obtained from this source @ -[No] Did you review nursing and triage notes (agree or disagree)? Why? @ -[I reviewed and agree with nursing and triage notes] Were old charts reviewed (outside hosp., previous admission, EMS record, old EKG, old radiological studies, urgent care reports/EKG's, senior living records)? Report findings @ -[No old charts were reviewed] Differential Diagnosis (chest pain, altered mental status, abdominal pain women, abdominal pain men, vaginal bleeding, weakness, fever, dyspnea, syncope, headache, dizziness, GI bleed, back pain, seizure, CVA, palpatations, mental health, musculoskeletal)? @ -[not applicable] EKG interpreted by me (3pts min.). @ -[As above] X-rays interpreted by me (1pt min.). @ -[None done] CT interpreted by me (1pt min.). @ -[None done] U/S interpreted by me (1pt. min.). @ -[None done] What testing was considered but not performed or refused? (CT, X-rays, U/S, labs)? Why? @ -[None] What meds were considered but not given or refused? Why? @ -[None] Did you discuss the management of the patient with other professionals (professionals i.e. , CAS, CRAB MEAT PROCESSOR, lab, RT, psych nurse, social research assistant, acetylene torch operator, teacher, hospital admissions officer, human services case manager)? Give summary @ -[No] Was smoking cessation discussed for >3mins.? @ -[No] Was critical care preformed (if so, how long)? @ -[No] Were there social determinants of health that impacted care today? How? (Homelessness, low income, unemployed, alcoholism, drug addiction, transportation, low edu. Level, literacy, decrease access to med. care, [facility], rehab)? @ -[No] Was there de-escalation of care discussed even if they declined (Discuss DNR or withdrawal of care, Hospice)? DNR status @ -[No] What co-morbidities impacted this encounter? (DM, HTN, Smoking, COPD, CAD, Cancer, CVA, ARF, Chemo, Hep., AIDS, mental health diagnosis, sleep apnea, morbid obesity)? @ -[None] Was patient admitted / discharged? Hospital course, mention meds given and route, prescriptions, significant lab abnormalities, going to OR and other pertinent info. @ -Admission. This is a 52-year-old female who presents the emergency department with fall and alcohol intoxication. Patient had a thorough history and physical exam performed physical exam essentially unremarkable. Heart rate regular rate and rhythm, lungs clear to auscultation bilaterally abdomen is soft and nontender. Patient appears to be clinically intoxicated. There is a 5 cm laceration to the back of the head. Patient had 9 lilia tierra misty in the ED for which she tolerated well. Patient had lab work and imaging performed: CT head and neck reveals age-related atrophic and chronic small vessel ischemic changes without any active intracranial process there are no fractures or dislocation of the C-spine Labs remarkable for WBC 10.0, hemoglobin 10.3, coags unremarkable, CMP unremarkable serum alcohol is 481 I discussed the results in detail with the patient verbalized understanding and all questions were addressed. Return precautions were discussed at length. Case discussed with Dr. Kahn who agrees and accepts the patient for admission. Case discussed with TUCKER Pretty who agrees with plan of care Undiagnosed new problem with uncertain prognosis? @ -[No] Drug Therapy requiring intensive monitoring for toxicity (Heparin, Nitro, Insulin, Cardizem)? @ -[No] Were any procedures done? @ -[No] Diagnosis/symptom? @ -fall - alcohol intoxication Acute, or Chronic, or Acute on Chronic? @ -acute Uncomplicated (without systemic symptoms) or Complicated (systemic symptoms)? @ -uncomplicated Side effects of treatment? @ -[No] Exacerbation, Progression, or Severe Exacerbation? @ -[No] Poses a threat to life or bodily function? How? (Chest pain, USA, DC, pneumonia, PE, COPD, DKA, ARF, appy, cholecystitis, CVA, Diverticulitis, Homicidal, Suicidal, threat to staff... and all critical care pts) @ -low likelihood - Lab Data Result diagrams: 12/04/22 14:23 12/04/22 14:23 Lab Results 12/04/22 12/04/22 12/04/22 Range/Units 14:23 14:23 14:23 WBC 10.0 (3.8-10.6) k/uL RBC 3.22 L (4.30-5.90) m/uL Hgb 10.3 L (13.0-17.5) gm/dL Hct 30.8 L (39.0-53.0) % MCV 95.7 (80.0-100.0) fL MCH 32.1 (25.0-35.0) pg MCHC 33.5 (31.0-37.0) g/dL RDW 15.5 (11.5-15.5) % Plt Count 241 (150-450) k/uL MPV 7.1 Neutrophils % 55 % Lymphocytes % 36 % Monocytes % 4 % Eosinophils % 1 % Basophils % 1 % Neutrophils # 5.5 (1.3-7.7) k/uL Lymphocytes # 3.6 (1.0-4.8) k/uL Monocytes # 0.4 (0-1.0) k/uL Eosinophils # 0.1 (0-0.7) k/uL Basophils # 0.1 (0-0.2) k/uL PT 9.4 (9.0-12.0) sec INR 0.9 (<1.2) APTT 23.6 (22.0-30.0) sec Sodium 139 (137-145) mmol/L Potassium 3.4 L (3.5-5.1) mmol/L Chloride 107 (98-107) mmol/L Carbon Dioxide 22 (22-30) mmol/L Anion Gap 10 mmol/L BUN 13 (9-20) mg/dL Creatinine 0.71 (0.66-1.25) mg/dL Est GFR (CKD-EPI)AfAm >90 (>60 ml/min/1.73 sqM) Est GFR (CKD-EPI)NonAf >90 (>60 ml/min/1.73 sqM) Glucose 80 (74-99) mg/dL Calcium 8.4 (8.4-10.2) mg/dL Total Bilirubin 0.4 (0.2-1.3) mg/dL AST 80 H (17-59) U/L ALT 64 H (4-49) U/L Alkaline Phosphatase 106 (38-126) U/L Total Protein 6.0 L (6.3-8.2) g/dL Albumin 3.5 (3.5-5.0) g/dL Serum Alcohol 481 H* mg/dL Disposition Clinical Impression: Fall, Alcohol intoxication Disposition: ADMITTED IP TO THIS HOSP Condition: Fair Is patient prescribed a controlled substance at d/c from ED?: No Time of Disposition: 15:40
[2022-12-04 14:41] LABS: Basophils # (A) 0.1 k/uL (0-0.2); Basophils % (A) 1 %; Eosinophils # (A) 0.1 k/uL (0-0.7); Eosinophils % (A) 1 %; HCT 30.8 % (39.0-53.0); HGB 10.3 gm/dL (13.0-17.5); Lymphocytes # (A) 3.6 k/uL (1.0-4.8); Lymphocytes % (A) 36 %; MCH 32.1 pg (25.0-35.0); MCHC 33.5 g/dL (31.0-37.0); MCV 95.7 fL (80.0-100.0); Mean Platelet Volume 7.1; Monocytes # (A) 0.4 k/uL (0-1.0); Monocytes % (A) 4 %; Neutrophils # (A) 5.5 k/uL (1.3-7.7); Neutrophils % (A) 55 %; Platelet Count 241 k/uL (150-450); RBC 3.22 m/uL (4.30-5.90); RDW 15.5 % (11.5-15.5)
[2022-12-04 14:52] LABS: INR 0.9 (<1.2); Partial Thromboplastin Time 23.6 sec (22.0-30.0); Prothrombin Time 9.4 sec (9.0-12.0)
[2022-12-04 14:53] LABS: ALT 64 U/L (4-49); AST 80 U/L (17-59); African American GFR (CKD) >90 (>60 ml/min/1.73 sqM); Albumin 3.5 g/dL (3.5-5.0); Alkaline Phosphatase 106 U/L (38-126); Anion Gap 10 mmol/L; Blood Urea Nitrogen 13 mg/dL (9-20); Calcium 8.4 mg/dL (8.4-10.2); Carbon Dioxide 22 mmol/L (22-30); Chloride 107 mmol/L (98-107); Glucose 80 mg/dL (74-99); Non-African American GFR(CKD) >90 (>60 ml/min/1.73 sqM); Potassium 3.4 mmol/L (3.5-5.1); Sodium 139 mmol/L (137-145); Total Bilirubin 0.4 mg/dL (0.2-1.3)
[2022-12-04 15:04] LABS: Alcohol 481 mg/dL
--- NOTE | 2022-12-04 15:27 | CT ---
EXAMINATION TYPE: CT brain anneliese wo con DATE OF EXAM: 12/04/2022 COMPARISON: 08/31/2022 HISTORY: etoh. fall. CT DLP: 1442.[address] of the brain was performed. The ventricles, basal cisterns and sulci overlying the cerebral convexities demonstrate mild enlargem ent. There is no evidence for intracranial hemorrhage or sulcal effacement. There is decreased attenuatio n about the periventricular white matter and deep white matter of both cerebral hemispheres, compatib le with chronic small vessel ischemia. No mass effects are seen. If symptoms persist consider MRI. Osseous calvarium is intact. Posterior scalp hematoma. IMPRESSION: 1. Age related atrophic and chronic small vessel ischemic change without acute intracranial process seen at this time. CT Cervical Spine: Unenhanced CT of the cervical spine was performed with bone and soft tissue window settings submitted . Coronal and sagittal reconstruction is obtained. There is normal alignment and prevertebral soft tissues. No evidence for acute cervical fracture . Scattered degenerative disc disease and spondylosis. Biapical scarring. IMPRESSION: 1. No evidence for acute fracture or subluxation of the cervical spine.
[2022-12-04] MEDS ORDERED: ACETAMINOPHEN TAB 325 MG TAB PO PRN (16:05)
[2022-12-04] MEDS ORDERED: NALOXONE 0.4 MG/ML 1 ML VIAL IV PRN (16:05)
[2022-12-04] MEDS ORDERED: IBUPROFEN 400 MG TAB PO PRN (16:05)
[2022-12-04] MEDS ORDERED: LORazepam 1 MG TAB PO PRN (16:06)
[2022-12-04] MEDS ORDERED: LORazepam 0.5 MG TAB PO PRN (16:06)
[2022-12-04] MEDS: SODIUM CHLORIDE 0.9% 1,000 ML IV SCH (16:48)
[2022-12-04] MEDS: LORazepam 1 MG TAB PO PRN ×2 (18:48→22:51)
[2022-12-04] MEDS: buPROPion SR 150 MG TABLET.ER PO SCH (20:53)
[2022-12-04] MEDS: DULoxetine HCL 60 MG CAPSULE.DR PO SCH (20:53)
[2022-12-04] MEDS: busPIRone HCl 5 MG TAB PO SCH (20:53)
[2022-12-04] MEDS: NAPROXEN 250 MG TAB PO SCH (20:54)
[2022-12-04] MEDS ORDERED: QUEtiapine 50 MG TAB PO SCH (21:00)
[2022-12-04] MEDS: cloNIDine HCL 0.1 MG TAB PO SCH (21:06)
[2022-12-05] MEDS: LORazepam 1 MG TAB PO PRN ×2 (03:33→08:05)
[2022-12-05 03:58] VITALS: RESP 18
[2022-12-05] MEDS ORDERED: LEVOTHYROXINE 50 MCG TAB PO SCH (06:30)
[2022-12-05] MEDS: DULoxetine HCL 60 MG CAPSULE.DR PO SCH (08:03)
[2022-12-05] MEDS: busPIRone HCl 5 MG TAB PO SCH (08:04)
[2022-12-05] MEDS: cloNIDine HCL 0.1 MG TAB PO SCH (08:05)
[2022-12-05] MEDS: SODIUM CHLORIDE 0.9% 1,000 ML IV SCH (08:05)
[2022-12-05] MEDS: buPROPion SR 150 MG TABLET.ER PO SCH (08:10)
[2022-12-05] MEDS: NAPROXEN 250 MG TAB PO SCH (08:10)
[2022-12-05 08:26] VITALS: BP 137/73; PULSE 111; TEMP 97
--- NOTE | 2022-12-05 08:27 | P.HPIM ---
History of Present Illness H&P Date: 12/05/22 Chief Complaint: Fall and alcoholism This is a 52-year-old male patient of my partner. He has been drinking approximately a fifth of vodka daily for the past several weeks. He has quit drinking several times. He has a long-standing history of alcoholism. He also has underlying hypertension and hyperlipidemia. Most recently he reports returning to drinking secondary to his insomnia. He was brought to the emergency room last night after falling and lacerating the back of his head. He had no loss of consciousness or any other issues. CT head and neck were normal. He is not on any anticoagulation. His alcohol level was 481 in the emergency room last night. This morning he is awake and alert tremulous. Staff will be giving him some Ativan per [facility] protocol. We discussed Alcoholics Anonymous counseling and he denies actually starting any of these services. She mentions some thyroid issues since previous hospital stay. He's been emergency room several times and been hospitalized here back in August for his alcoholism. Review of Systems All systems: negative Past Medical History Past Medical History: Hyperlipidemia, Hypertension Additional Past Medical History / Comment(s): Chronic cervical pain. Alcoholism History of Any Multi-Drug Resistant Organisms: None Reported Past Surgical History: Hernia Repair Additional Past Surgical History / Comment(s): R inguinal hernia repair, deviated septum sx, colonoscopy x 2. Past Anesthesia/Blood Transfusion Reactions: No Reported Reaction Past Psychological History: Anxiety, Depression Smoking Status: Current every day smoker Past Alcohol Use History: Heavy Past Drug Use History: None Reported - Past Family History Mother Family Medical History: No Reported History Additional Family Medical History / Comment(s): Mother April 2022 of covid. Father Family Medical History: No Reported History Additional Family Medical History / Comment(s): Father from an accident. Medications and Allergies Home Medications Medication Instructions Recorded Confirmed Type Sertraline [Zoloft] 50 mg PO DAILY 08/31/22 12/04/22 History Thiamine [Vitamin B-1] 100 mg PO DAILY #30 cap 09/01/22 12/04/22 Rx Atorvastatin [Lipitor] 20 mg PO DAILY 12/02/22 12/04/22 History DULoxetine HCL [Cymbalta] 60 mg PO BID 12/02/22 12/04/22 History Glucosamine/Chondr Lovell A Sod [Osteo 1 tab PO DAILY 12/02/22 12/04/22 History Bi-Flex Caplet] Levothyroxine Sodium [Synthroid] 50 mcg PO DAILY 12/02/22 12/04/22 History Loratadine 10 mg PO DAILY 12/02/22 12/04/22 History Multivit-Mins/Iron/Folic/Lycop 1 tab PO DAILY 12/02/22 12/04/22 History [Centrum Men's Tablet] Naproxen [Naprosyn] 500 mg PO BID 12/02/22 12/04/22 History Olmesartan Medoxomil 40 mg PO DAILY 12/02/22 12/04/22 History Potassium Gluconate 99 mg PO DAILY 12/02/22 12/04/22 History QUEtiapine [SEROquel] 50 mg PO HS 12/02/22 12/04/22 History buPROPion SR [Wellbutrin SR] 150 mg PO BID 12/02/22 12/04/22 History busPIRone HCL 15 mg PO BID 12/02/22 12/04/22 History cloNIDine HCL [Catapres] 0.1 mg PO TID 12/02/22 12/04/22 History Allergies Allergy/AdvReac Type Severity Reaction Status Date / Time No Known Allergies Allergy Verified 12/04/22 15:42 Physical Exam Vitals: Vital Signs Temp Pulse Pulse Resp BP BP Pulse Ox 12/05/22 02:00 98.6 F 115 H 18 145/65 99 12/04/22 20:00 98.3 F 112 H 16 121/55 97 12/04/22 17:19 85 17 106/50 100 12/04/22 15:17 81 17 104/44 100 12/04/22 14:10 97.8 F 82 18 119/70 100 Intake and Output 12/04/22 12/05/22 12/05/22 22:59 06:59 14:59 Other: # Voids 2 3 # Bowel Movements 1 Weight 74.843 kg GENERAL: male slightly tremulous, in no acute distress HEAD: Atraumatic, normocephalic. EYES: Pupils equal round and reactive to light, extraocular movements intact, sclera anicteric, conjunctiva are normal. ENT:nares patent, oropharynx clear without exudates. Moist mucous membranes. NECK: Normal range of motion, supple without lymphadenopathy or JVD, no thyromegaly LUNGS: Breath sounds clear to auscultation bilaterally and equal. No wheezes rales or rhonchi. HEART: Regular rate and rhythm without murmurs, rubs or gallops.S1S2 Normal ABDOMEN: Soft, nontender, normoactive bowel sounds. No guarding, no rebound. No masses appreciated. EXTREMITIES: Normal range of motion, no pitting or edema. No clubbing or cyanosis. NEUROLOGICAL: Cranial nerves II through XII grossly intact. Normal speech, normal gait. PSYCH: Somewhat saddened mood, normal affect. SKIN: Laceration stapled closed on the occiput. Clean dry and intact Results CBC & Chem 7: 12/04/22 14:23 12/04/22 14:23 Labs: Abnormal Lab Results - Last 24 Hours (Table) 12/04/22 12/04/22 Range/Units 14:23 14:23 RBC 3.22 L (4.30-5.90) m/uL Hgb 10.3 L (13.0-17.5) gm/dL Hct 30.8 L (39.0-53.0) % Potassium 3.4 L (3.5-5.1) mmol/L AST 80 H (17-59) U/L ALT 64 H (4-49) U/L Total Protein 6.0 L (6.3-8.2) g/dL Serum Alcohol 481 H* mg/dL CT Scan - head: report reviewed Thrombosis Risk Factor Assmnt - DVT/VTE Prophylaxis DVT/VTE Prophylaxis: Low risk, early ambulation encouraged - Choose All That Apply Any of the Below Risk Factors Present?: Yes Each Factor Represents 1 point: Age 41-60 years Other Risk Factors: No Other congenital or acquired thrombophilia - If yes, enter type in comment: No Thrombosis Risk Factor Assessment Total Risk Factor Score: 1 Thrombosis Risk Factor Assessment Level: Low Risk Assessment and Plan (1) Essential (primary) hypertension Current Visit: Yes Status: Acute Code(s): I10 - ESSENTIAL (PRIMARY) HYPERTENSION SNOMED Code(s): 41982447 (2) Mixed hyperlipidemia Current Visit: Yes Status: Acute Code(s): E78.2 - MIXED HYPERLIPIDEMIA SNOMED Code(s): 794322802 (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 Current Visit: Yes Status: Acute Code(s): F10.24 - ALCOHOL DEPENDENCE WITH ALCOHOL-INDUCED MOOD DISORDER SNOMED Code(s): 7498243871 (4) Alcohol intoxication Current Visit: Yes Status: Acute Code(s): F10.929 - ALCOHOL USE, UNSPECIFIED WITH INTOXICATION, UNSPECIFIED SNOMED Code(s): 66171596 (5) Fall Current Visit: Yes Status: Acute Code(s): W19.XXXA - UNSPECIFIED FALL, INITIAL ENCOUNTER SNOMED Code(s): 9345430 (6) Alcohol withdrawal Current Visit: No Status: Acute Code(s): F10.939 - ALCOHOL USE, UNSPECIFIED WITH WITHDRAWAL, UNSPECIFIED SNOMED Code(s): 112568661 (7) Depression Current Visit: No Status: Acute Code(s): F32.A - DEPRESSION, UNSPECIFIED SNOMED Code(s): 06028960 Plan: He will continue on the [facility] protocol. His home medications have been restarted. We'll continue to monitor the patient for withdrawal seizures. Thyroid function was just checked several days ago and is normalized. He will need significant outpatient resources. He should once again consider inpatient resources. If he is functioning well and having minimal withdrawal symptoms, ankur lozoya'll plan on discharging him home later today though patient resources, otherwise he will need to stay overnight 1 skin with further evaluation resources.
[2022-12-05] MEDS ORDERED: ATORVASTATIN 20 MG TAB PO SCH (09:00)
[2022-12-05] MEDS ORDERED: MULTIVITAMINS, THERA 1 EACH TAB PO SCH (09:00)
[2022-12-05] MEDS ORDERED: THIAMINE 100 MG TAB PO SCH (09:00)
[2022-12-05] MEDS ORDERED: LOSARTAN 50 MG TAB PO SCH (09:00)
[2022-12-05] MEDS ORDERED: POTASSIUM CHLORIDE ER 10 MEQ TAB.ER.PRT PO SCH (09:00)
[2022-12-05] MEDS ORDERED: SERTRALINE 50 MG TAB PO SCH (09:00)
[2022-12-05] MEDS ORDERED: LORATADINE 10 MG TAB PO SCH (09:00)
[2022-12-05 09:36] LABS: Basophils % (A) 0 %; Eosinophils # (A) 0.1 k/uL (0-0.7); Eosinophils % (A) 1 %; HCT 25.6 % (39.0-53.0); Lymphocytes # (A) 1.3 k/uL (1.0-4.8); Lymphocytes % (A) 17 %; MCH 32.5 pg (25.0-35.0); MCHC 33.8 g/dL (31.0-37.0); Mean Platelet Volume 7.6; Monocytes # (A) 0.3 k/uL (0-1.0); Monocytes % (A) 3 %; Neutrophils # (A) 6.1 k/uL (1.3-7.7); Neutrophils % (A) 78 %; Platelet Count 185 k/uL (150-450); RBC 2.67 m/uL (4.30-5.90); RDW 15.6 % (11.5-15.5); WBC 7.8 k/uL (3.8-10.6)
[2022-12-05 09:54] LABS: ALT 50 U/L (4-49); AST 58 U/L (17-59); African American GFR (CKD) >90 (>60 ml/min/1.73 sqM); Albumin/Globulin Ratio 1.3; Alcohol <10 mg/dL; Alkaline Phosphatase 116 U/L (38-126); Anion Gap 6 mmol/L; Blood Urea Nitrogen 17 mg/dL (9-20); Calcium 8.3 mg/dL (8.4-10.2); Carbon Dioxide 21 mmol/L (22-30); Chloride 109 mmol/L (98-107); Globulin 2.4 g/dL; Glucose 123 mg/dL (74-99); Non-African American GFR(CKD) >90 (>60 ml/min/1.73 sqM); Potassium 3.8 mmol/L (3.5-5.1); Sodium 136 mmol/L (137-145); Total Bilirubin 0.5 mg/dL (0.2-1.3); Total Protein 5.4 g/dL (6.3-8.2)
[2022-12-05 09:59] LABS: HGB 8.7 gm/dL (13.0-17.5)
[2022-12-05] MEDS ORDERED: NICOTINE 21MG/24HR PATCH TRANSDERM SCH (11:15)
--- NOTE | 2022-12-06 10:59 | P.DS ---
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 He has been drinking approximately a fifth of vodka daily for the past several weeks. He has quit drinking several times. He has a long-standing history of alcoholism. He also has underlying hypertension and hyperlipidemia. Most recently he reports returning to drinking secondary to his insomnia. He was brought to the emergency room last night after falling and lacerating the back of his head. He had no loss of consciousness or any other issues. CT head and neck were normal. He is not on any anticoagulation. His alcohol level was 481 in the emergency room last night. This morning he is awake and alert tremulous. Staff will be giving him some Ativan per [facility] protocol. We discussed Alcoholics Anonymous counseling and he denies actually starting any of these services. She mentions some thyroid issues since previous hospital stay. He's been emergency room several times and been hospitalized here back in August for his alcoholism. addendum: by late afternoon 12/05/22 patieant was improved. Less tremulous and appearimng at baseline. Eh was sent home with his with info on Inpt and outpt treatment options. Patient Condition at Discharge: Fair Plan - Discharge Summary Discharge Rx Participant: No New Discharge Prescriptions: Continue Thiamine [Vitamin B-1] 100 mg PO DAILY #30 cap QUEtiapine [SEROquel] 50 mg PO HS Olmesartan Medoxomil 40 mg PO DAILY Atorvastatin [Lipitor] 20 mg PO DAILY Multivit-Mins/Iron/Folic/Lycop [Centrum Men's Tablet] 1 tab PO DAILY DULoxetine HCL [Cymbalta] 60 mg PO BID Levothyroxine Sodium [Synthroid] 50 mcg PO DAILY Naproxen [Naprosyn] 500 mg PO BID Sertraline [Zoloft] 50 mg PO DAILY cloNIDine HCL [Catapres] 0.1 mg PO TID Loratadine 10 mg PO DAILY Potassium Gluconate 99 mg PO DAILY Glucosamine/Chondr Lovell A Sod [Osteo Bi-Flex Caplet] 1 tab PO DAILY busPIRone HCL 15 mg PO BID buPROPion SR [Wellbutrin SR] 150 mg PO BID Discharge Medication List Sertraline [Zoloft] 50 mg PO DAILY 08/31/22 [History] Thiamine [Vitamin B-1] 100 mg PO DAILY #30 cap 09/01/22 [Rx] Atorvastatin [Lipitor] 20 mg PO DAILY 12/02/22 [History] DULoxetine HCL [Cymbalta] 60 mg PO BID 12/02/22 [History] Glucosamine/Chondr Lovell A Sod [Osteo Bi-Flex Caplet] 1 tab PO DAILY 12/02/22 [History] Levothyroxine Sodium [Synthroid] 50 mcg PO DAILY 12/02/22 [History] Loratadine 10 mg PO DAILY 12/02/22 [History] Multivit-Mins/Iron/Folic/Lycop [Centrum Men's Tablet] 1 tab PO DAILY 12/02/22 [History] Naproxen [Naprosyn] 500 mg PO BID 12/02/22 [History] Olmesartan Medoxomil 40 mg PO DAILY 12/02/22 [History] Potassium Gluconate 99 mg PO DAILY 12/02/22 [History] QUEtiapine [SEROquel] 50 mg PO HS 12/02/22 [History] buPROPion SR [Wellbutrin SR] 150 mg PO BID 12/02/22 [History] busPIRone HCL 15 mg PO BID 12/02/22 [History] cloNIDine HCL [Catapres] 0.1 mg PO TID 12/02/22 [History] Follow up Appointment(s)/Referral(s): Rich Ac Jr, [Primary Care Provider] - 1-2 days [facility] [NON-STAFF] - As Needed Discharge Disposition: HOME SELF-CARE
== END 2022-12-05 14:03 | disposition home or self-care (01) | DRG 897 ==
LOC: EC 14:06 → 4SSUR 15:39
PROVIDERS: ADMIT Family Medicine; ATTEND Family Medicine
PROC: HZ2ZZZZ Detoxification Services for Substance Abuse Treatment (ICD-10-PCS; principal; 2022-12-04)
PROC: 0HQ0XZZ Repair Scalp Skin, External Approach (ICD-10-PCS; 2022-12-04)
DX: F10.229 Alcohol dependence with intoxication, unspecified (principal); F10.239 Alcohol dependence with withdrawal, unspecified; F10.24 Alcohol dependence with alcohol-induced mood disorder; F17.210 Nicotine dependence, cigarettes, uncomplicated; Y90.8 Blood alcohol level of 240 mg/100 ml or more; I10 Essential (primary) hypertension; E78.2 Mixed hyperlipidemia; S01.01XA Laceration without foreign body of scalp, initial encounter; G89.29 Other chronic pain; G47.00 Insomnia, unspecified; F32.A Depression, unspecified; M54.2 Cervicalgia; F41.9 Anxiety disorder, unspecified; W19.XXXA Unspecified fall, initial encounter; Z79.890 Hormone replacement therapy; Z79.899 Other long term (current) drug therapy; Z87.19 Personal history of other diseases of the digestive system
CPT/HCPCS: 36415; 70450; 72125; 80053; 80320; 83735; 85025; 85610; 85730; 96360; 96361; 99285

== ENCOUNTER 2023-01-27 10:26 | Inpatient (IN) | payer BC ==
[2023-01-27] MEDS ORDERED: SODIUM CHLORIDE 0.9% 1,000 ML IV STA ×3 (10:48→11:54)
--- NOTE | 2023-01-27 11:16 | ED ---
General Adult HPI - General Chief complaint: Alcohol Stated complaint: Failure to Thrive Time Seen by Provider: 01/27/23 10:40 Source: patient, family, EMS, RN notes reviewed Mode of arrival: EMS Limitations: no limitations - History of Present Illness Initial comments: Patient is a 52-year-old male who is brought to the emergency department and petitioned by his for failure to thrive, alcohol abuse. Patient does have a history of chronic alcohol abuse as well as withdrawals. Has not been eating and drinking. Has just been sitting at home, not getting up. States he has been having numerous episodes of diarrhea. States is dark brown in color. Denies any tarry black stools. Denies any hematemesis. Denies any abdominal pain. Denies any nausea or vomiting. Has no chest pain or shortness of breath. Is alert and oriented 4. No other acute complaints at this time. Complains of just generalized weakness. Presents for further evaluation at this time. Denies any fevers, chills, cough. No known sick contacts.Patient has not been eating or drinking for multiple days. - Related Data Home Medications Medication Instructions Recorded Confirmed Atorvastatin [Lipitor] 20 mg PO HS 12/02/22 01/27/23 DULoxetine HCL [Cymbalta] 60 mg PO DAILY 12/02/22 01/27/23 Loratadine 10 mg PO DAILY 12/02/22 01/27/23 Naproxen [Naprosyn] 500 mg PO BID PRN 12/02/22 01/27/23 Olmesartan Medoxomil 40 mg PO DAILY 12/02/22 01/27/23 buPROPion SR [Wellbutrin SR] 150 mg PO DAILY 12/02/22 01/27/23 busPIRone HCL 15 mg PO DAILY 12/02/22 01/27/23 cloNIDine HCL [Catapres] 0.1 mg PO BID 12/02/22 01/27/23 Levothyroxine Sodium 100 mcg PO DAILY 01/27/23 01/27/23 Mirtazapine 15 mg PO HS 01/27/23 01/27/23 Previous Rx's Medication Instructions Recorded Thiamine [Vitamin B-1] 100 mg PO DAILY #30 cap 09/01/22 Allergies Allergy/AdvReac Type Severity Reaction Status Date / Time No Known Allergies Allergy Verified 01/27/23 12:04 Review of Systems ROS Statement: Those systems with pertinent positive or pertinent negative responses have been documented in the HPI. Review of Systems: CONST: Denies fever EYES: Denies blurry vision ENT: Denies nasal congestion C/V: Denies Chest pain RESP: Denies shortness of breath GI: Denies abdominal pain : Denies dysuria SKIN: Denies rash. MSK: Denies joint pain. NEURO: Denies headache ROS Other: All systems not noted in ROS Statement are negative. Past Medical History Past Medical History: Hyperlipidemia, Hypertension Additional Past Medical History / Comment(s): Chronic cervical pain. Alcoholism History of Any Multi-Drug Resistant Organisms: None Reported Past Surgical History: Hernia Repair Additional Past Surgical History / Comment(s): R inguinal hernia repair, deviated septum sx, colonoscopy x 2. Past Anesthesia/Blood Transfusion Reactions: No Reported Reaction Past Psychological History: Anxiety, Depression Smoking Status: Current every day smoker Past Alcohol Use History: Abuse, Daily, Heavy Past Drug Use History: None Reported - Past Family History Mother Family Medical History: No Reported History Additional Family Medical History / Comment(s): Mother April 2022 of covid. Father Family Medical History: No Reported History Additional Family Medical History / Comment(s): Father from an accident. General Exam - General Exam Comments Initial Comments: General: Appears in no acute distress. Appears acutely intoxicated with alcohol. HEAD: Normal with no signs of head trauma. EYES: PERRLA, EOMI, conjunctiva normal, no discharge. Pupils are 3 mm equal bilaterally. ENT: Hearing grossly intact, normal oropharynx. RESPIRATORY: Clear breath sounds bilaterally. No wheezes, rales, or rhonchi. C/V: Regular rate and rhythm. S1 and S2 auscultated, no edema, peripheral pulses 2+ and intact throughout ABD: Abd is soft, nontender, nondistended. Rectal exam performed. Good rectal tone. Brown stools. No bright red blood. No dark tarry stools. EXT: Normal range of motion, no obvious deformity SKIN: Patient has some skin breakdown on his sacrum likely from not rotating or moving much over the last few days. NEURO: Alert and oriented x 4. Cranial nerves II-XII intact. No focal sensory or strength deficits. GCS of 15. Limitations: no limitations Course Vital Signs 01/27/23 01/27/23 01/27/23 10:27 11:34 12:00 Temperature 98 F Pulse Rate 90 82 105 H Respiratory 18 22 22 Rate Blood Pressure 80/43 91/51 90/40 O2 Sat by Pulse 95 99 93 L Oximetry 01/27/23 01/27/23 13:00 14:00 Temperature 98 F Pulse Rate 102 H 104 H Respiratory 22 20 Rate Blood Pressure 112/60 112/62 O2 Sat by Pulse 96 96 Oximetry Medical Decision Making - Medical Decision Making Was pt. sent in by a medical professional or institution (, PA, PICKER / PACKER, urgent care, hospital, or retirement...) When possible be specific @ -No Did you speak to anyone other than the patient for history (EMS, parent, family, police, friend...)? What history was obtained from this source @ -No Did you review nursing and triage notes (agree or disagree)? Why? @ -I reviewed and agree with nursing and triage notes Were old charts reviewed (outside hosp., previous admission, EMS record, old EKG, old radiological studies, urgent care reports/EKG's, retirement records)? Report findings @ -Old EKGs reviewed. Petition reviewed. Differential Diagnosis (chest pain, altered mental status, abdominal pain women, abdominal pain men, vaginal bleeding, weakness, fever, dyspnea, syncope, headache, dizziness, GI bleed, back pain, seizure, CVA, palpatations, mental health, musculoskeletal)? @ -Differential Weakness: Hypoglycemia, shock, sepsis, hyponatremia, anemia, infection, DE, ETOH, adverse medicine reaction, overdose, stroke, this is not meant to be an all-inclusive list. EKG interpreted by me (3pts min.). @ -As above X-rays interpreted by me (1pt min.). @ -Chest x-ray reveals no obvious acute cardio pulmonary process. CT interpreted by me (1pt min.). @ -CT abdomen and pelvis reveals no obvious acute intrapelvic process. U/S interpreted by me (1pt. min.). @ -None done What testing was considered but not performed or refused? (CT, X-rays, U/S, labs)? Why? @ -None What meds were considered but not given or refused? Why? @ -None Did you discuss the management of the patient with other professionals (professionals i.e. , PA, PICKER / PACKER, lab, RT, psych nurse, social work manager, supervisor waterworks, teacher, training and development officer, counter caser)? Give summary @ -Discuss the case with Dr. Ac who was in agreement with the plan and accepted the admission. Was smoking cessation discussed for >3mins.? @ -No Was critical care preformed (if so, how long)? @ -yes, 35 min Were there social determinants of health that impacted care today? How? (Homelessness, low income, unemployed, alcoholism, drug addiction, transportation, low edu. Level, literacy, decrease access to med. care, shelter, rehab)? @ -No Was there de-escalation of care discussed even if they declined (Discuss DNR or withdrawal of care, Hospice)? DNR status @ -No What co-morbidities impacted this encounter? (DM, HTN, Smoking, COPD, CAD, Cancer, CVA, ARF, Chemo, Hep., AIDS, mental health diagnosis, sleep apnea, morbid obesity)? @ -Alcohol abuse Was patient admitted / discharged? Hospital course, mention meds given and r oute, prescriptions, significant lab abnormalities, going to OR and other pertinent info. @ -Based on the patient's presentation and physical exam, presents with generalized weakness. Patient is acutely intoxicated with alcohol. Petition by for failure to thrive. Would like psych to evaluate the patient. He does have a history of withdrawals. Patient presented hypotensive, and appears extremity dehydrated based on exam. He will receive 3 L fluid bolus and placed on maintenance fluids. We will obtain Gen. weakness labs. CT and pelvis also be obtained. I do suspect weakness secondary to diarrhea, dehydration. He was in agreement this plan. Other vital signs are within acceptable limits. EKG showed new T-wave inversions in the lateral precordial leads. Imaging is unremarkable. Labs are remarkable for a chronic anemia with hemoglobin 11.5. A mild thrombocytopenia as well. Lactic acid is elevated at 2.5. Likely secondary to dehydration and not infection. Chronically elevated LFTs and alk phos without any obvious acute abdominal pain. Troponin is minimally elevated likely secondary to the dehydration. Occult blood is positive however patient's gross blood is negative. No obvious GI bleeding. We will continue to monitor. Alcohol level is 445. Vital signs are negative. Patient's blood pressure has improved at this time with systolics in the 100s. I updated the patient results of his workup. He will be admitted progression by psychiatry as well as cardiology due to the new T-wave inversions. CIWA protocol was ordered. He was in agreement this plan. We'll continue maintenance fluids. I spoke with the admitting physician, Dr. Ac who accepted the patient. Undiagnosed new problem with uncertain prognosis? @ -No Drug Therapy requiring intensive monitoring for toxicity (Heparin, Nitro, Insulin, Cardizem)? @ -No Were any procedures done? @ -No Diagnosis/symptom? @ -Alcohol intoxication, failure to thrive, dehydration, T-wave inversions Acute, or Chronic, or Acute on Chronic? @ -Acute Uncomplicated (without systemic symptoms) or Complicated (systemic symptoms)? @ -Complicated Side effects of treatment? @ -No Exacerbation, Progression, or Severe Exacerbation? @ -No Poses a threat to life or bodily function? How? (Chest pain, USA, DE, pneumonia, PE, COPD, DKA, ARF, appy, cholecystitis, CVA, Diverticulitis, Homicidal, Suicidal, threat to staff... and all critical care pts) @ -Yes - Lab Data Result diagrams: 01/27/23 10:48 01/27/23 10:48 Lab Results 01/27/23 01/27/23 01/27/23 Range/Units 10:48 10:48 10:48 WBC 5.3 (3.8-10.6) k/uL RBC 3.41 L (4.30-5.90) m/uL Hgb 11.5 L (13.0-17.5) gm/dL Hct 34.1 L (39.0-53.0) % MCV 100.0 (80.0-100.0) fL MCH 33.7 (25.0-35.0) pg MCHC 33.7 (31.0-37.0) g/dL RDW 15.2 (11.5-15.5) % Plt Count 88 L D (150-450) k/uL MPV 9.0 Neutrophils % 61 % Lymphocytes % 32 % Monocytes % 5 % Eosinophils % 1 % Basophils % 1 % Neutrophils # 3.3 (1.3-7.7) k/uL Lymphocytes # 1.7 (1.0-4.8) k/uL Monocytes # 0.3 (0-1.0) k/uL Eosinophils # 0.1 (0-0.7) k/uL Basophils # 0.0 (0-0.2) k/uL Manual Slide Review Perf Macrocytosis Slight PT 9.3 (9.0-12.0) sec INR 0.9 (<1.2) APTT 23.5 (22.0-30.0) sec Sodium 137 (137-145) mmol/L Potassium 4.2 (3.5-5.1) mmol/L Chloride 100 (98-107) mmol/L Carbon Dioxide 24 (22-30) mmol/L Anion Gap 13 mmol/L BUN 40 H (9-20) mg/dL Creatinine 1.25 (0.66-1.25) mg/dL Est GFR (CKD-EPI)AfAm 76 (>60 ml/min/1.73 sqM) Est GFR (CKD-EPI)NonAf 66 (>60 ml/min/1.73 sqM) Glucose 90 (74-99) mg/dL Lactic Ac Sepsis Rflx Plasma Lactic Acid Derik (0.7-2.0) mmol/L Calcium 8.0 L (8.4-10.2) mg/dL Magnesium 1.9 (1.6-2.3) mg/dL Total Bilirubin 0.8 (0.2-1.3) mg/dL AST 326 H (17-59) U/L ALT 157 H (4-49) U/L Alkaline Phosphatase 268 H (38-126) U/L Ammonia (<30) umol/L Troponin I (0.000-0.034) ng/mL Total Protein 6.1 L (6.3-8.2) g/dL Albumin 3.4 L (3.5-5.0) g/dL Urine Color Urine Appearance (Clear) Urine pH (5.0-8.0) Ur Specific [place] (1.001-1.035) Urine Protein (Negative) Urine Glucose (UA) (Negative) Urine Ketones (Negative) Urine Blood (Negative) Urine Nitrite (Negative) Urine Bilirubin (Negative) Urine Urobilinogen (<2.0) mg/dL Ur Leukocyte Esterase (Negative) Urine RBC (0-5) /hpf Urine WBC (0-5) /hpf Urine Mucus (None) /hpf Stool Occult Blood (Negative) Urine Opiates Screen (NotDetected) Ur Oxycodone Screen (NotDetected) Urine Methadone Screen (NotDetected) Ur Propoxyphene Screen (NotDetected) Ur Barbiturates Screen (NotDetected) U Tricyclic Antidepress (NotDetected) Ur Phencyclidine Scrn (NotDetected) Ur Amphetamines Screen (NotDetected) U Methamphetamines Scrn (NotDetected) U Benzodiazepines Scrn (NotDetected) Urine Cocaine Screen (NotDetected) U Marijuana (THC) Screen (NotDetected) Serum Alcohol 445 H* mg/dL Influenza Type A (PCR) (Not Detectd) Influenza Type B (PCR) (Not Detectd) RSV (PCR) (Not Detectd) SARS-CoV-2 (PCR) (Not Detectd) 01/27/23 01/27/23 01/27/23 Range/Units 10:48 10:48 10:48 WBC (3.8-10.6) k/uL RBC (4.30-5.90) m/uL Hgb (13.0-17.5) gm/dL Hct (39.0-53.0) % MCV (80.0-100.0) fL MCH (25.0-35.0) pg MCHC (31.0-37.0) g/dL RDW (11.5-15.5) % Plt Count (150-450) k/uL MPV Neutrophils % % Lymphocytes % % Monocytes % % Eosinophils % % Basophils % % Neutrophils # (1.3-7.7) k/uL Lymphocytes # (1.0-4.8) k/uL Monocytes # (0-1.0) k/uL Eosinophils # (0-0.7) k/uL Basophils # (0-0.2) k/uL Manual Slide Review Macrocytosis PT (9.0-12.0) sec INR (<1.2) APTT (22.0-30.0) sec Sodium (137-145) mmol/L Potassium (3.5-5.1) mmol/L Chloride (98-107) mmol/L Carbon Dioxide (22-30) mmol/L Anion Gap mmol/L BUN (9-20) mg/dL Creatinine (0.66-1.25) mg/dL Est GFR (CKD-EPI)AfAm (>60 ml/min/1.73 sqM) Est GFR (CKD-EPI)NonAf (>60 ml/min/1.73 sqM) Glucose (74-99) mg/dL Lactic Ac Sepsis Rflx Plasma Lactic Acid Derik 2.5 H* (0.7-2.0) mmol/L Calcium (8.4-10.2) mg/dL Magnesium (1.6-2.3) mg/dL Total Bilirubin (0.2-1.3) mg/dL AST (17-59) U/L ALT (4-49) U/L Alkaline Phosphatase (38-126) U/L Ammonia <9 (<30) umol/L Troponin I 0.037 H* (0.000-0.034) ng/mL Total Protein (6.3-8.2) g/dL Albumin (3.5-5.0) g/dL Urine Color Urine Appearance (Clear) Urine pH (5.0-8.0) Ur Specific [place] (1.001-1.035) Urine Protein (Negative) Urine Glucose (UA) (Negative) Urine Ketones (Negative) Urine Blood (Negative) Urine Nitrite (Negative) Urine Bilirubin (Negative) Urine Urobilinogen (<2.0) mg/dL Ur Leukocyte Esterase (Negative) Urine RBC (0-5) /hpf Urine WBC (0-5) /hpf Urine Mucus (None) /hpf Stool Occult Blood Positive (Negative) Urine Opiates Screen (NotDetected) Ur Oxycodone Screen (NotDetected) Urine Methadone Screen (NotDetected) Ur Propoxyphene Screen (NotDetected) Ur Barbiturates Screen (NotDetected) U Tricyclic Antidepress (NotDetected) Ur Phencyclidine Scrn (NotDetected) Ur Amphetamines Screen (NotDetected) U Methamphetamines Scrn (NotDetected) U Benzodiazepines Scrn (NotDetected) Urine Cocaine Screen (NotDetected) U Marijuana (THC) Screen (NotDetected) Serum Alcohol mg/dL Influenza Type A (PCR) (Not Detectd) Influenza Type B (PCR) (Not Detectd) RSV (PCR) (Not Detectd) SARS-CoV-2 (PCR) (Not Detectd) 01/27/23 01/27/2323 Range/Units 10:48 10:58 10:58 WBC (3.8-10.6) k/uL RBC (4.30-5.90) m/uL Hgb (13.0-17.5) gm/dL Hct (39.0-53.0) % MCV (80.0-100.0) fL MCH (25.0-35.0) pg MCHC (31.0-37.0) g/dL RDW (11.5-15.5) % Plt Count (150-450) k/uL MPV Neutrophils % % Lymphocytes % % Monocytes % % Eosinophils % % Basophils % % Neutrophils # (1.3-7.7) k/uL Lymphocytes # (1.0-4.8) k/uL Monocytes # (0-1.0) k/uL Eosinophils # (0-0.7) k/uL Basophils # (0-0.2) k/uL Manual Slide Review Macrocytosis PT (9.0-12.0) sec INR (<1.2) APTT (22.0-30.0) sec Sodium (137-145) mmol/L Potassium (3.5-5.1) mmol/L Chloride (98-107) mmol/L Carbon Dioxide (22-30) mmol/L Anion Gap mmol/L BUN (9-20) mg/dL Creatinine (0.66-1.25) mg/dL Est GFR (CKD-EPI)AfAm (>60 ml/min/1.73 sqM) Est GFR (CKD-EPI)NonAf (>60 ml/min/1.73 sqM) Glucose (74-99) mg/dL Lactic Ac Sepsis Rflx Plasma Lactic Acid Derik (0.7-2.0) mmol/L Calcium (8.4-10.2) mg/dL Magnesium (1.6-2.3) mg/dL Total Bilirubin (0.2-1.3) mg/dL AST (17-59) U/L ALT (4-49) U/L Alkaline Phosphatase (38-126) U/L Ammonia (<30) umol/L Troponin I (0.000-0.034) ng/mL Total Protein (6.3-8.2) g/dL Albumin (3.5-5.0) g/dL Urine Color Yellow Urine Appearance Clear (Clear) Urine pH 5.5 (5.0-8.0) Ur Specific [place] 1.012 (1.001-1.035) Urine Protein 1+ H (Negative) Urine Glucose (UA) Negative (Negative) Urine Ketones 1+ H (Negative) Urine Blood Small H (Negative) Urine Nitrite Negative (Negative) Urine Bilirubin Negative (Negative) Urine Urobilinogen <2.0 (<2.0) mg/dL Ur Leukocyte Esterase Negative (Negative) Urine RBC 1 (0-5) /hpf Urine WBC 2 (0-5) /hpf Urine Mucus Rare H (None) /hpf Stool Occult Blood (Negative) Urine Opiates Screen Not Detected (NotDetected) Ur Oxycodone Screen Not Detected (NotDetected) Urine Methadone Screen Not Detected (NotDetected) Ur Propoxyphene Screen Not Detected (NotDetected) Ur Barbiturates Screen Not Detected (NotDetected) U Tricyclic Antidepress Not Detected (NotDetected) Ur Phencyclidine Scrn Not Detected (NotDetected) Ur Amphetamines Screen Not Detected (NotDetected) U Methamphetamines Scrn Not Detected (NotDetected) U Benzodiazepines Scrn Not Detected (NotDetected) Urine Cocaine Screen Not Detected (NotDetected) U Marijuana (THC) Screen Detected H (NotDetected) Serum Alcohol mg/dL Influenza Type A (PCR) Not Detected (Not Detectd) Influenza Type B (PCR) Not Detected (Not Detectd) RSV (PCR) Not Detected (Not Detectd) SARS-CoV-2 (PCR) Not Detected (Not Detectd) 01/27/23 Range/Units 12:22 WBC (3.8-10.6) k/uL RBC (4.30-5.90) m/uL Hgb (13.0-17.5) gm/dL Hct (39.0-53.0) % MCV (80.0-100.0) fL MCH (25.0-35.0) pg MCHC (31.0-37.0) g/dL RDW (11.5-15.5) % Plt Count (150-450) k/uL MPV Neutrophils % % Lymphocytes % % Monocytes % % Eosinophils % % Basophils % % Neutrophils # (1.3-7.7) k/uL Lymphocytes # (1.0-4.8) k/uL Monocytes # (0-1.0) k/uL Eosinophils # (0-0.7) k/uL Basophils # (0-0.2) k/uL Manual Slide Review Macrocytosis PT (9.0-12.0) sec INR (<1.2) APTT (22.0-30.0) sec Sodium (137-145) mmol/L Potassium (3.5-5.1) mmol/L Chloride (98-107) mmol/L Carbon Dioxide (22-30) mmol/L Anion Gap mmol/L BUN (9-20) mg/dL Creatinine (0.66-1.25) mg/dL Est GFR (CKD-EPI)AfAm (>60 ml/min/1.73 sqM) Est GFR (CKD-EPI)NonAf (>60 ml/min/1.73 sqM) Glucose (74-99) mg/dL Lactic Ac Sepsis Rflx Y Plasma Lactic Acid Derik (0.7-2.0) mmol/L Calcium (8.4-10.2) mg/dL Magnesium (1.6-2.3) mg/dL Total Bilirubin (0.2-1.3) mg/dL AST (17-59) U/L ALT (4-49) U/L Alkaline Phosphatase (38-126) U/L Ammonia (<30) umol/L Troponin I (0.000-0.034) ng/mL Total Protein (6.3-8.2) g/dL Albumin (3.5-5.0) g/dL Urine Color Urine Appearance (Clear) Urine pH (5.0-8.0) Ur Specific [place] (1.001-1.035) Urine Protein (Negative) Urine Glucose (UA) (Negative) Urine Ketones (Negative) Urine Blood (Negative) Urine Nitrite (Negative) Urine Bilirubin (Negative) Urine Urobilinogen (<2.0) mg/dL Ur Leukocyte Esterase (Negative) Urine RBC (0-5) /hpf Urine WBC (0-5) /hpf Urine Mucus (None) /hpf Stool Occult Blood (Negative) Urine Opiates Screen (NotDetected) Ur Oxycodone Screen (NotDetected) Urine Methadone Screen (NotDetected) Ur Propoxyphene Screen (NotDetected) Ur Barbiturates Screen (NotDetected) U Tricyclic Antidepress (NotDetected) Ur Phencyclidine Scrn (NotDetected) Ur Amphetamines Screen (NotDetected) U Methamphetamines Scrn (NotDetected) U Benzodiazepines Scrn (NotDetected) Urine Cocaine Screen (NotDetected) U Marijuana (THC) Screen (NotDetected) Serum Alcohol mg/dL Influenza Type A (PCR) (Not Detectd) Influenza Type B (PCR) (Not Detectd) RSV (PCR) (Not Detectd) SARS-CoV-2 (PCR) (Not Detectd) - EKG Data -: EKG Interpreted by Me EKG Comments: 12-lead Electrocardiogram Interpretation Note EKG was reviewed and interpreted by myself. 12-lead ECG performed at 1120 is interpreted by me as revealing normal sinus rhythm at a rate of 82 beats per minute. [place] is normal. OK interval is 152 ms, QRS duration is 90 ms, QTc is 439 ms.. Patient does have T-wave inversions in the lateral precordial leads V4 through V6. These are new when compared with EKGs in our system from December 2022, November 2022.. R wave progression across the precordium was satisfactory. . Disposition Clinical Impression: Alcohol intoxication, Diarrhea, Dehydration, Failure to thrive, T wave inversion in EKG Disposition: ADMITTED IP TO THIS HOSP Condition: Stable Time of Disposition: 14:25
[2023-01-27 11:30] LABS: INR 0.9 (<1.2); Partial Thromboplastin Time 23.5 sec (22.0-30.0); Prothrombin Time 9.3 sec (9.0-12.0)
[2023-01-27 11:35] LABS: ALT 157 U/L (4-49); AST 326 U/L (17-59); African American GFR (CKD) 76 (>60 ml/min/1.73 sqM); Albumin 3.4 g/dL (3.5-5.0); Alkaline Phosphatase 268 U/L (38-126); Anion Gap 13 mmol/L; Blood Urea Nitrogen 40 mg/dL (9-20); Carbon Dioxide 24 mmol/L (22-30); Chloride 100 mmol/L (98-107); Glucose 90 mg/dL (74-99); Magnesium 1.9 mg/dL (1.6-2.3); Non-African American GFR(CKD) 66 (>60 ml/min/1.73 sqM); Potassium 4.2 mmol/L (3.5-5.1); Sodium 137 mmol/L (137-145); Total Bilirubin 0.8 mg/dL (0.2-1.3); Total Protein 6.1 g/dL (6.3-8.2)
[2023-01-27 11:46] LABS: Basophils % (A) 1 %; Eosinophils # (A) 0.1 k/uL (0-0.7); Eosinophils % (A) 1 %; HCT 34.1 % (39.0-53.0); HGB 11.5 gm/dL (13.0-17.5); Lymphocytes # (A) 1.7 k/uL (1.0-4.8); Lymphocytes % (A) 32 %; MCH 33.7 pg (25.0-35.0); MCHC 33.7 g/dL (31.0-37.0); Macrocytosis Slight; Monocytes # (A) 0.3 k/uL (0-1.0); Monocytes % (A) 5 %; Neutrophils # (A) 3.3 k/uL (1.3-7.7); Neutrophils % (A) 61 %; RBC 3.41 m/uL (4.30-5.90); RDW 15.2 % (11.5-15.5); WBC 5.3 k/uL (3.8-10.6)
[2023-01-27 11:49] LABS: Alcohol 445 mg/dL
--- NOTE | 2023-01-27 11:53 | XR ---
EXAMINATION TYPE: XR chest 1V portable DATE OF EXAM: 01/27/2023 HISTORY: Shortness of breath. COMPARISON: 12/02/2022 TECHNIQUE: Single view of the chest is submitted. FINDINGS: Demonstrated are scattered senescent parenchymal change. There is no evidence for focal infiltrate. The heart is stable. Hilar and mediastinal structures are within normal limits. Degenerative changes are seen of the dorsal spine. IMPRESSION: 1. Chronic changes without evidence for acute pulmonary disease.
[2023-01-27 12:22] LABS: Lactic Acid, Venous 2.5 mmol/L (0.7-2.0)
[2023-01-27 12:31] LABS: Platelet Count 88 k/uL (150-450)
[2023-01-27 13:29] LABS: Appearance,Urine Clear (Clear); Bilirubin,Urine Negative (Negative); Blood,Urine Small (Negative); Color,Urine Yellow; Glucose,Urine (UA) Negative (Negative); Ketones,Urine 1+ (Negative); Leukocyte Esterase,Urine Negative (Negative); Mucus,Urine Rare /hpf; Nitrite,Urine Negative (Negative); PH, Urine 5.5 (5.0-8.0); Protein,Urine 1+ (Negative); RBC,Urine 1 /hpf (0-5); Specific Gravity,Urine 1.012 (1.001-1.035); Urobilinogen,Urine <2.0 mg/dL (<2.0); WBC,Urine 2 /hpf (0-5)
[2023-01-27 13:36] LABS: Amphetamine Screen,Urine Not Detected (NotDetected); Barbiturate Screen,Urine Not Detected (NotDetected); Benzodiazepines Screen,Urine Not Detected (NotDetected); Cocaine Screen,Urine Not Detected (NotDetected); Methadone Screen, Urine Not Detected (NotDetected); Opiate Screen,Urine Not Detected (NotDetected); Oxycodone Screen, Urine Not Detected (NotDetected); Phencyclidine Screen,Urine Not Detected (NotDetected); Tricyclic Antidepressant,Urine Not Detected (NotDetected); Urn Cannabinoid Scrn Detected (NotDetected)
--- NOTE | 2023-01-27 14:01 | CT ---
EXAMINATION TYPE: CT abdomen pelvis w con CT DLP: 1054.6 mGycm, Automated exposure control for dose reduction was used. DATE OF EXAM: 01/27/2023 1:48 PM COMPARISON: None CLINICAL INDICATION:Male, 52 years old with history of diarrhea; Dizziness, fall, confusion, cannot c onfirm LOC TECHNIQUE: Standard CT of the abdomen and pelvis following the administration of 100 cc of Isovue 3 00 IV contrast material. Coronal and sagittal reformats were performed. FINDINGS: LOWER CHEST: Posterior dependent subsegmental atelectasis is noted. ABDOMEN LIVER: Diffusely hypoattenuating parenchyma. GALLBLADDER AND BILE DUCTS: Hydropic gallbladder. No biliary ductal dilatation. PANCREAS: Unremarkable. SPLEEN: Unremarkable. ADRENAL GLANDS: Unremarkable. KIDNEYS AND URETERS: No evidence of hydronephrosis or renal calculus. The kidneys enhance symmetrical ly. Prominent left extra renal pelvis. PELVIS BLADDER: Unremarkable REPRODUCTIVE: Unremarkable. ABDOMEN & PELVIS STOMACH AND BOWEL: Stomach and duodenum are unremarkable. No focal bowel wall thickening or surroundi ng inflammatory changes. The appendix is within normal limits. No evidence of bowel obstruction. PERITONEUM: No evidence of pneumoperitoneum or free fluid. VASCULATURE: Mild atherosclerotic calcifications are present throughout the abdominal aorta and its b ranches. No evidence of aortic aneurysm. MUSCULOSKELETAL: No acute osseous abnormalities LYMPH NODES: No gross evidence for lymphadenopathy. SOFT TISSUE/ABDOMINAL WALL: Fat filled bilateral inguinal hernias. IMPRESSION: 1. No acute abdominal/pelvic process. 2. Hepatic steatosis. 3. Hydropic gallbladder. If there is concern for acute cholecystitis, consider further evaluation wit h ultrasound.
[2023-01-27] MEDS ORDERED: THIAMINE 100 MG/ML 2 ML VIAL IM STA (14:26)
[2023-01-27] MEDS ORDERED: NALOXONE 0.4 MG/ML 1 ML VIAL IV PRN ×2 (14:44→15:17)
[2023-01-27] MEDS: LORazepam 2 MG/ML INJ IV PRN ×4 (18:21→22:43)
[2023-01-27] MEDS ORDERED: HALOPERIDOL LACTATE 5 MG/ML 1 ML VIAL IM STA (21:45)
[2023-01-27] MEDS ORDERED: SODIUM CHLORIDE 0.9% 500 ML 500 ML IV ONE (21:45)
[2023-01-27] MEDS: ATORVASTATIN 20 MG TAB PO SCH (21:49)
[2023-01-27] MEDS: cloNIDine HCL 0.1 MG TAB PO SCH (21:49)
[2023-01-27] MEDS ORDERED: HALOPERIDOL LACTATE 5 MG/ML 1 ML VIAL IVP PRN (22:21)
[2023-01-28] MEDS: LORazepam 2 MG/ML INJ IV PRN ×4 (00:06→21:18)
[2023-01-28] MEDS: DEXMEDETOMIDINE/0.9% NACL(PMX) 400 MCG in EMPTY BAG 1 BAG IV SCH ×4 (01:23→21:17)
[2023-01-28] MEDS: LEVOTHYROXINE 100 MCG TAB PO SCH (05:45)
--- NOTE | 2023-01-28 07:39 | P.CRDCN ---
History of Present Illness Consult date: 01/28/23 Chief complaint: Change in mental status History of present illness: The patient is a 52-year-old gentleman with a past medical history significant for chronic alcohol use was brought to the hospital by his family because of change in mental status. The patient currently is lethargic and poor historian and the history was taken from the chart as well as from the nurse taking care of the patient. He does have history of chronic alcohol use. For the last week or so he has been not eating or drinking but he has been using excessive alcohol with the last time he uses about 48 hours ago. Currently he is going through withdrawal. He does have significant change in mental status in terms of lethargy. He is currently in sinus tachycardia likely related to alcohol withdrawal. No indication that he was experiencing any symptoms of chest pain or chest discomfort. No 0 coronary artery disease or congestive heart failure or cardiac arrhythmia and never seen by our service in the hospital before. He underwent further workup including EKG showing sinus mechanism with bifascicular T-wave anteriorly and T-wave inversion laterally. The first set of troponin came in to be slightly abnormal and the subsequent 2 sets of troponin came in to be within normal limits. The chest x-ray showed no acute abnormalities. Computed tomography scan of the abdomen and pelvis came in to be unremarkable as well. He underwent further cardiac workup including CBC and BMP and both came in to be unremarkable. Lactic acid was elevated. He was tested positive for marijuana. Alcohol level was elevated at 445. The examination is remarkable for regular rhythm with distant heart sounds and systolic murmur at the right and left upper sternal border was clear breathing sounds bilaterally and no lower extremity edema noted. Assessment Excessive alcohol use Poor oral intake for the last several days Evidence of myocardial injury. Abnormal EKG Change in mental status Plan Further risk stratification. Obtain an echocardiogram was Doppler Further recommendation to follow the echo and assess for cardiomyopathy as well as wall motion abnormalities Meanwhile start the patient on aspirin if he can take any oral medication. Also other small dose of beta george The mildly abnormal troponin could be also related to sinus tachycardia Management the withdrawal symptoms Follow-up with the patient Past Medical History Past Medical History: Hyperlipidemia, Hypertension Additional Past Medical History / Comment(s): Chronic cervical pain. Alcoholism History of Any Multi-Drug Resistant Organisms: None Reported Past Surgical History: Hernia Repair Additional Past Surgical History / Comment(s): R inguinal hernia repair, deviated septum sx, colonoscopy x 2. Past Anesthesia/Blood Transfusion Reactions: No Reported Reaction Past Psychological History: Anxiety, Depression Smoking Status: Current every day smoker Past Alcohol Use History: Abuse, Daily, Heavy Past Drug Use History: None Reported - Past Family History Mother Family Medical History: No Reported History Additional Family Medical History / Comment(s): Mother April 2022 of covid. Father Family Medical History: No Reported History Additional Family Medical History / Comment(s): Father from an accident. Medications and Allergies Home Medications Medication Instructions Recorded Confirmed Type Thiamine [Vitamin B-1] 100 mg PO DAILY #30 cap 09/01/22 01/27/23 Rx Atorvastatin [Lipitor] 20 mg PO HS 12/02/22 01/27/23 History DULoxetine HCL [Cymbalta] 60 mg PO DAILY 12/02/22 01/27/23 History Loratadine 10 mg PO DAILY 12/02/22 01/27/23 History Naproxen [Naprosyn] 500 mg PO BID PRN 12/02/22 01/27/23 History Olmesartan Medoxomil 40 mg PO DAILY 12/02/22 01/27/23 History buPROPion SR [Wellbutrin SR] 150 mg PO DAILY 12/02/22 01/27/23 History busPIRone HCL 15 mg PO DAILY 12/02/22 01/27/23 History cloNIDine HCL [Catapres] 0.1 mg PO BID 12/02/22 01/27/23 History Levothyroxine Sodium 100 mcg PO DAILY 01/27/23 01/27/23 History Mirtazapine 15 mg PO HS 01/27/23 01/27/23 History Allergies Allergy/AdvReac Type Severity Reaction Status Date / Time No Known Allergies Allergy Verified 01/27/23 12:04 Physical Exam Vitals: Vital Signs Temp Pulse Resp BP Pulse Ox 01/28/23 06:35 98 16 123/67 98 01/28/23 06:00 99 16 124/77 97 01/28/23 04:43 106 H 18 127/72 96 01/28/23 02:44 126 H 18 150/69 94 L 01/28/23 02:00 118 H 16 141/72 98 01/28/23 01:00 128 H 21 146/66 94 L 01/28/23 00:37 116 H 95 01/28/23 00:00 129 H 18 133/83 92 L 01/27/23 22:00 129 H 16 95/62 95 01/27/23 21:00 130 H 22 95/70 95 01/27/23 20:00 120 H 20 97/53 97 01/27/23 19:00 85 16 111/80 94 L 01/27/23 18:00 105 H 20 116/57 96 01/27/23 17:00 93 20 95/50 95 01/27/23 15:43 93 20 111/66 96 01/27/23 14:00 98 F 104 H 20 112/62 96 01/27/23 13:00 102 H 22 112/60 96 01/27/23 12:00 105 H 22 90/40 93 L 01/27/23 11:34 82 22 91/51 99 01/27/23 10:27 98 F 90 18 80/43 95 Intake and Output 01/27/23 01/28/23 01/28/23 22:59 06:59 14:59 Intake Total 3000 40.851 Output Total 700 Balance 2300 40.851 Intake: Intake, IV Titration 3000 40.851 Amount Dexmedetomidine/0.9% NaCl 40.851 (Pmx) 400 mcg In Empty Bag 1 bag @ 0.2 MCG/KG/HR 3.742 mls/hr IV .Q24H [facility] Rx#:[id number] Sodium Chloride 0.9% 1, 3000 000 ml @ 999 mls/hr IV . Q1H1M [facility] Rx#:[id number] Output: Urine 700 Results 01/27/23 10:48 01/27/23 10:48 Cardiac Enzymes 01/27/23 01/27/23 01/27/23 Range/Units 10:48 10:48 17:53 AST 326 H (17-59) U/L Troponin I 0.037 H* 0.029 (0.000-0.034) ng/mL 01/27/23 Range/Units 21:11 AST (17-59) U/L Troponin I 0.025 (0.000-0.034) ng/mL Coagulation 01/27/23 Range/Units 10:48 PT 9.3 (9.0-12.0) sec APTT 23.5 (22.0-30.0) sec CBC 01/27/23 Range/Units 10:48 WBC 5.3 (3.8-10.6) k/uL RBC 3.41 L (4.30-5.90) m/uL Hgb 11.5 L (13.0-17.5) gm/dL Hct 34.1 L (39.0-53.0) % Plt Count 88 L D (150-450) k/uL Comprehensive Metabolic Panel 01/27/23 Range/Units 10:48 Sodium 137 (137-145) mmol/L Potassium 4.2 (3.5-5.1) mmol/L Chloride 100 (98-107) mmol/L Carbon Dioxide 24 (22-30) mmol/L BUN 40 H (9-20) mg/dL Creatinine 1.25 (0.66-1.25) mg/dL Glucose 90 (74-99) mg/dL Calcium 8.0 L (8.4-10.2) mg/dL AST 326 H (17-59) U/L ALT 157 H (4-49) U/L Alkaline Phosphatase 268 H (38-126) U/L Total Protein 6.1 L (6.3-8.2) g/dL Albumin 3.4 L (3.5-5.0) g/dL Current Medications Generic Name Dose Route Start Last Admin Trade Name Freq PRN Reason Stop Dose Admin Atorvastatin Calcium 20 mg 01/27/23 21:00 01/27/23 21:49 Atorvastatin 20 Mg Tab PO 20 mg HS LISA Administration Bupropion HCl 150 mg 01/28/23 09:00 Bupropion Sr 150 Mg Tablet.Er PO DAILY LISA Buspirone HCl 15 mg 01/28/23 09:00 Buspirone Hcl 5 Mg Tab PO DAILY LISA Clonidine 0.1 mg 01/27/23 21:00 01/27/23 21:49 Clonidine Hcl 0.1 Mg Tab PO 0.1 mg BID LISA Administration Duloxetine HCl 60 mg 01/28/23 09:00 Duloxetine Hcl 60 Mg Capsule.Dr PO DAILY LISA Dexmedetomidine HCl 400 mcg/ 100 mls @ 3.742 mls/hr 01/28/23 01:00 01/28/23 05:37 IV Solution IV 0.7 mcg/kg/hr .Q24H LISA 13.098 mls/hr Titration Protocol 0.2 MCG/KG/HR Levothyroxine Sodium 100 mcg 01/28/23 06:30 01/28/23 05:45 Levothyroxine 100 Mcg Tab PO Not Given DAILY@0630 LISA Lorazepam 1 mg 01/27/23 14:26 01/27/23 20:05 Lorazepam 2 Mg/Ml Inj IV 1 mg Q1HR PRN Administration CIWA 10 to 15 Lorazepam 1 mg 01/27/23 14:26 01/27/23 18:21 Lorazepam 2 Mg/Ml Inj IV 1 mg Q2HR PRN Administration CIWA 8 or 9 Naloxone HCl 0.2 mg 01/27/23 14:44 Naloxone 0.4 Mg/Ml 1 Ml Vial IV Q2M PRN Opioid Reversal Thiamine HCl 100 mg 01/28/23 09:00 Thiamine 100 Mg Tab PO DAILY LISA Intake and Output 01/27/23 01/28/23 01/28/23 22:59 06:59 14:59 Intake Total 3000 40.851 Output Total 700 Balance 2300 40.851 Intake: Intake, IV Titration 3000 40.851 Amount Dexmedetomidine/0.9% NaCl 40.851 (Pmx) 400 mcg In Empty Bag 1 bag @ 0.2 MCG/KG/HR 3.742 mls/hr IV .Q24H [facility] Rx#:[id number] Sodium Chloride 0.9% 1, 3000 000 ml @ 999 mls/hr IV . Q1H1M [facility] Rx#:[id number] Output: Urine 700 01/27/23 10:48 01/27/23 10:48
[2023-01-28] MEDS: METOPROLOL SUCCINATE (ER) 25 MG TAB.ER.24H PO SCH (08:43)
[2023-01-28] MEDS: THIAMINE 100 MG TAB PO SCH (08:43)
[2023-01-28] MEDS: DULoxetine HCL 60 MG CAPSULE.DR PO SCH (08:43)
[2023-01-28] MEDS: busPIRone HCl 5 MG TAB PO SCH (08:43)
[2023-01-28] MEDS: cloNIDine HCL 0.1 MG TAB PO SCH ×2 (08:43→22:02)
[2023-01-28] MEDS: ASPIRIN 81 MG PO SCH (08:43)
[2023-01-28] MEDS: buPROPion SR 150 MG TABLET.ER PO SCH (08:43)
--- NOTE | 2023-01-28 12:39 | P.CN ---
Psychiatric Consult - . Consult date: 01/28/23 Consult:: 01/28/23 12:38 IDENTIFYING DATA: This patient is a 52-year-old, , on disability, male with significant history of hypertension and hyperlipidemia and alcoholism who presents to our hospital on 01/27/2023 under petition for failure to thrive and alcohol abuse. HISTORY OF PRESENT ILLNESS: The patient presented to the hospital on 01/27/2023, brought into the hospital by EMS under petition for failure to thrive, heavy alcohol use, and bowel incontinence. The petition was filled out by the patient's Mago who wrote that the patient has not been eating appropriately, sleeping, or taking care of himself. He has been primarily isolative to himself and not getting out of bed. Psychiatry was consulted for evaluation of the petition. Upon the patient's arrival in the ED, his serum alcohol was 445. The patient also had elevated troponin, AST, ALT, BUN, and lactic acid. Upon evaluation by psychiatry, the patient's primary concern is his bowel incontinence. He expresses he is more depressed because he "pooping my pants non stop." He otherwise is denying any suicidal or homicidal ideation, intention, and/or plan. He reports no auditory or visual hallucinations. He reports no paranoia or other delusions. The patient does admit to not taking care of himself. However this all occurs in the context of heavy alcohol use. The patient admits to drinking a fifth of vodka everyday. He reports frequent marijuana use. He will be admitted to the ICU for stabilization. PAST PSYCHIATRIC HISTORY: Patient has a history of anxiety. He was previously prescribed Zoloft, Remeron, and Acamprosate, however he is non adherent with prescribed medications. Patient denies any previous psychiatric hospitalizations. Patient denies any psychiatric outpatient follow-up. Patient denies any history of suicide attempts in the past prior to placing the firearm in front of him in August. PAST MEDICAL HISTORY Past Medical History: Hyperlipidemia, Hypertension Additional Past Medical History / Comment(s): Chronic cervical pain. Alcoholism History of Any Multi-Drug Resistant Organisms: None Reported Past Surgical History: Hernia Repair Additional Past Surgical History / Comment(s): R inguinal hernia repair, deviated septum sx, colonoscopy x 2. Past Anesthesia/Blood Transfusion Reactions: No Reported Reaction Past Psychological History: Anxiety, Depression Smoking Status: Current every day smoker Past Alcohol Use History: Heavy Past Drug Use History: None Reported ALLERGIES: NO KNOWN DRUG ALLERGIES CHEMICAL DEPENDENCY HISTORY: The patient reports 1.5 packs per day of tobacco. He approixmates drinking up to a fifth of liquor. He reports his last drink was last night. Frequent marijuana use. FAMILY PSYCHIATRIC/SUBSTANCE USE HISTORY: The patient reports that his mother had anxiety. SOCIAL HISTORY: From his previous admission: Patient was born and raised in [facility]. He reports that growing up was bright and happy. He denies any history of trauma. He reports that he was very close with his mother and the rest of his family. He is been to his Mago for 23 years. They have a 22-year-old son who is away at college. 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 MENTAL STATUS EXAM: General Appearance: Patient appears to be stated age is alert, pleasant, and cooperative. Patient appears to have slightly disheveled hygiene and grooming wearing hospital gown with fair eye contact. Behavior: Patient is lying down in bed and appears to be nervous and tremulous. Speech: Patient's speech is fluent and nonpressured. Mood/Affect: Patient reports their mood is "I can't stop pooping and it's depressing." Affect is anxious. Suicidality/Homicidality: Patient denies any suicidal or homicidal ideation, intention, and/or plan. Perceptions: Patient denies any visual hallucinations and denies any auditory hallucinations Though content/process: There is no evidence of any delusional thought content and thought process is linear and goal-directed. Memory and concentration: AOX3, grossly intact for the purposes of this session. Can spell "WORLD" backwards Judgment and insight: Fair IMPRESSIONS: Alcohol use disorder Alcohol induced depressive disorder PLAN: -Continue your medical management for alcohol withdrawal -At this time patient DOES NOT meet criteria for inpatient psychiatric admission. Primary issue is alcohol use disorder and not mood disorder. Despite efforts to address depressive symptoms, due to ongoing alcoholism, psychiatric intervention will remain fruitless. It is strongly recommended that due to the severity of his alcohol use disorder, the patient pursue a higher level of tr eatment such as inpatient substance abuse rehabilitation. Patient does not have certifiable criteria for inpatient psychiatric admission at this time. -Would recommend the following medication changes/additions: We will hold medications until patient is more medically appropriate and admitted onto the ICU/medical floor. Currently the patient has acute kidney injury and elevated transamniases limiting use of acamprosate and naltrexone. -Motivational interviewing to address alcohol cessation was discussed in great detail with the patient -Patient to be admitted to the ICU. Psychiatry will continue to follow. 01/28/23 12:39
--- NOTE | 2023-01-28 12:47 | CA ---
Transthoracic Echo Report Name: Js Yanes Age: 52 Gender: M : 1970 Exam Date: 01/28/2023 10:34 Exam Location: [place] Echo Ht (in): 70 Wt (lb): 165 Ordering Physician: Piero Ordoñez DO ([email or web address]) Attending/Referring Phys: Wine Consultant Glenroy Geronimo Procedure CPT: Indications: t wave inversion Cardiac Hx: Technical Quality: Fair Contrast 1: Total Dose (mL): Contrast 2: Total Dose (mL): MEASUREMENTS (Male / Female) Normal Values 2D ECHO LV Diastolic Diameter PLAX 6.2 cm 4.2 - 5.9 / 3.9 - 5.3 cm LV Systolic Diameter PLAX 5.1 cm IVS Diastolic Thickness 1.2 cm 0.6 - 1.0 / 0.6 - 0.9 cm LVPW Diastolic Thickness 1.2 cm 0.6 - 1.0 / 0.6 - 0.9 cm LV Relative Wall Thickness 0.4 RV Internal Dim ED PLAX 1.7 cm LV Diastolic Volume MOD BP 137.5 cm??? 67 - 155 / 56 - 104 cm??? LV Systolic Volume MOD BP 78.8 cm??? 22 - 58 / 19 - 49 cm??? LV Ejection Fraction MOD BP 42.7 % >= 55 % LV Diastolic Volume MOD 4C 174.1 cm??? LV Systolic Volume MOD 4C 103.7 cm??? LV Ejection Fraction MOD 4C 40.4 % LV Diastolic Length 4C 8.3 cm LV Systolic Length 4C 7.4 cm LV Diastolic Volume MOD 2C 109.4 cm??? LV Systolic Volume MOD 2C 59.1 cm??? LV Ejection Fraction MOD 2C 46.0 % LV Diastolic Length 2C 8.5 cm LV Systolic Length 2C 7.1 cm LA Volume 41.1 cm??? 18 - 58 / 22 - 52 cm??? DOPPLER AV Peak Velocity 161.7 cm/s AV Peak Gradient 10.5 mmHg AI Peak Velocity 278.7 cm/s AI Peak Gradient 31.1 mmHg AI Pressure Half Time 259.1 ms LVOT Peak Velocity 75.3 cm/s LVOT Peak Gradient 2.3 mmHg MV Peak Velocity 142.2 cm/s MV Peak Gradient 8.1 mmHg MV Mean Velocity 62.5 cm/s MV Mean Gradient 2.1 mmHg MV Velocity Time Integral 28.4 cm MR Peak Velocity 524.7 cm/s MR Peak Gradient 110.1 mmHg Mitral E Point Velocity 122.0 cm/s Mitral A Point Velocity 38.1 cm/s Mitral E to A Ratio 3.2 MV Deceleration Time 108.0 ms MV E' Velocity 5.1 cm/s Mitral E to MV E' Ratio 24.1 TR Peak Velocity 175.3 cm/s TR Peak Gradient 12.3 mmHg Right Ventricular Systolic Press 17.5 mmHg FINDINGS Left Ventricle Left ventricular ejection fraction is estimated at 30-35 %. Moderate left ventricular dilatation. Severe global hypokinesis Right Ventricle Normal right ventricular size. Right Atrium Normal right atrial size. Left Atrium Normal left atrial size. Mitral Valve Structurally normal mitral valve. Moderate MR. Aortic Valve Aortic valve not well visualized. Appeare to be trileaflet. Moderate aortic regurgitation. Tricuspid Valve Tricuspid valve not well visualized.mild tricuspid regurgitation. . Pulmonic Valve Pulmonic valve not well visualized. No pulmonic regurgitation. Pericardium Normal pericardium. Aorta AO Root adia= 4.3cm CONCLUSIONS 1. Dilated left ventricle with severe global hypokinesis 2. Moderate mitral and aortic regurgitation with mild tricuspid regurgitation and no evidence of pulmonary hypertension Previewed by: Dr. Cayla Moffett MD (Electronically Signed) Final Date: 28 January 2023 12:46
[2023-01-28] MEDS: CHOLESTYRAMINE (WITH SUGAR) 4 GM PACKET PO SCH ×3 (14:35→17:09)
[2023-01-28] MEDS ORDERED: HALOPERIDOL LACTATE 5 MG/ML 1 ML VIAL IVP STA (18:24)
[2023-01-28] MEDS ORDERED: LORazepam 2 MG/ML INJ IV STA (18:24)
--- NOTE | 2023-01-28 18:55 | P.HPIM ---
History of Present Illness H&P Date: 01/28/23 Chief Complaint: Alcohol intoxication failure to thrive This is a 52-year-old male only seen in my office one time was unable to stay for the complete visit in left known history of alcoholism and his asked me what she needed to do that he been not gotten out of bed and 3 days he was developing bedsores and he has been continuing to drink alcohol during this time and has maintained significant levels of intoxication apparently for the last several years. I was asked what she needed to do I told her she needed to take him to the hospital same on petition to be admitted to the mental health unit he will probably have to be medically cleared and that is exactly what transpired. This patient was started on a [place], protocol in the emergency room after being evaluated by psychiatry, patient is requiring medical clearance for admission to the mental health unit. At time of admission patient's alcohol level was 400, patient maxed out his Ativan requirements on the C iwwa protocol, he was started on a Precedex drip, of which he was having breakthrough agitation, this case was discussed with Dr. Llanos critical care medicine, he agreed for the patient to be admitted to the intensive care unit Review of Systems Constitutional: Reports anorexia, Reports weight loss Ears, nose, mouth and throat: Reports as per HPI Cardiovascular: Reports as per HPI Respiratory: Reports as per HPI Gastrointestinal: Reports diarrhea Genitourinary: Reports incontinence Musculoskeletal: Reports as per HPI Integumentary: Reports brittle nails, Reports pruritus Neurological: Reports change in speech, Reports confusion, Reports lack of coordination Psychiatric: Reports disorientation, Reports irritability (Severe alcohol withdrawal syndrome) Endocrine: Reports as per HPI Hematologic/Lymphatic: Reports as per HPI Allergic/Immunologic: Reports as per HPI Past Medical History Past Medical History: Hyperlipidemia, Hypertension Additional Past Medical History / Comment(s): Chronic cervical pain. Alcoholism History of Any Multi-Drug Resistant Organisms: None Reported Past Surgical History: Hernia Repair Additional Past Surgical History / Comment(s): R inguinal hernia repair, deviated septum sx, colonoscopy x 2. Past Anesthesia/Blood Transfusion Reactions: No Reported Reaction Past Psychological History: Anxiety, Depression Smoking Status: Current every day smoker Past Alcohol Use History: Abuse, Daily, Heavy Past Drug Use History: None Reported - Past Family History Mother Family Medical History: No Reported History Additional Family Medical History / Comment(s): Mother April 2022 of covid. Father Family Medical History: No Reported History Additional Family Medical History / Comment(s): Father from an accident. Medications and Allergies Home Medications Medication Instructions Recorded Confirmed Type Thiamine [Vitamin B-1] 100 mg PO DAILY #30 cap 09/01/22 01/27/23 Rx Atorvastatin [Lipitor] 20 mg PO HS 12/02/22 01/27/23 History DULoxetine HCL [Cymbalta] 60 mg PO DAILY 12/02/22 01/27/23 History Loratadine 10 mg PO DAILY 12/02/22 01/27/23 History Naproxen [Naprosyn] 500 mg PO BID PRN 12/02/22 01/27/23 History Olmesartan Medoxomil 40 mg PO DAILY 12/02/22 01/27/23 History buPROPion SR [Wellbutrin SR] 150 mg PO DAILY 12/02/22 01/27/23 History busPIRone HCL 15 mg PO DAILY 12/02/22 01/27/23 History cloNIDine HCL [Catapres] 0.1 mg PO BID 12/02/22 01/27/23 History Levothyroxine Sodium 100 mcg PO DAILY 01/27/23 01/27/23 History Mirtazapine 15 mg PO HS 01/27/23 01/27/23 History Allergies Allergy/AdvReac Type Severity Reaction Status Date / Time No Known Allergies Allergy Verified 01/27/23 12:04 Physical Exam Osteopathic Statement: *. No significant issues noted on an osteopathic structural exam other than those noted in the History and Physical/Consult. Vitals: Vital Signs Pulse Resp BP Pulse Ox 01/28/23 18:00 106 H 18 112/72 99 01/28/23 17:00 110 H 16 106/66 98 01/28/23 16:00 107 H 26 H 131/94 98 01/28/23 14:00 100 25 H 131/85 98 01/28/23 13:00 111 H 22 127/72 100 01/28/23 12:00 100 22 124/77 97 01/28/23 11:00 103 H 22 126/84 01/28/23 10:00 103 H 18 125/70 100 01/28/23 09:00 96 14 115/74 100 01/28/23 07:52 99 16 129/77 99 01/28/23 06:35 98 16 123/67 98 01/28/23 06:00 99 16 124/77 97 01/28/23 04:43 106 H 18 127/72 96 01/28/23 02:44 126 H 18 150/69 94 L 01/28/23 02:00 118 H 16 141/72 98 01/28/23 01:00 128 H 21 146/66 94 L 01/28/23 00:37 116 H 95 01/28/23 00:00 129 H 18 133/83 92 L 01/27/23 22:00 129 H 16 95/62 95 01/27/23 21:00 130 H 22 95/70 95 01/27/23 20:00 120 H 20 97/53 97 01/27/23 19:00 85 16 111/80 94 L Intake and Output 01/28/23 01/28/23 01/28/23 06:59 14:59 22:59 Intake Total 40.851 120.158 24.157 Balance 40.851 120.158 24.157 Intake: Intake, IV Titration 40.851 120.158 24.157 Amount Dexmedetomidine/0.9% NaCl 40.851 120.158 24.157 (Pmx) 400 mcg In Empty Bag 1 bag @ 0.2 MCG/KG/HR 3.742 mls/hr IV .Q24H [facility] Rx#:[id number] General: [Patient awake, alert and oriented confused HEENT: [PERRL. EOMI. No pharyngeal erythema or exudate.] Neck: [No adenopathy.] Cardiac: [Heart regular in rate and rhythm. No S3. No S4. No clicks, rubs. No murmur.] Lungs: [Clear to auscultation bilaterally.] Abdomen: [No mass. No organomegaly. Bowel sounds presnt and normoactive in all 4 quadrants.] Extremes: [No edema no cyanosis no claudication normal pulses] : Normal male genitalia Musculoskeletal: [No joint erythema, edema or tenderness.] Skin: [No rash.] Neurologic: [No lateralizing deficits. CN II - XII grossly intact.] Lymphatic: [No adenopathy.] Results CBC & Chem 7: 01/27/23 10:48 01/27/23 10:48 Assessment and Plan (1) Alcohol intoxication Current Visit: Yes Status: Acute Code(s): F10.929 - ALCOHOL USE, UNSPECIFIED WITH INTOXICATION, UNSPECIFIED SNOMED Code(s): 02118236 (2) Alcohol withdrawal Current Visit: Yes Status: Acute Code(s): F10.939 - ALCOHOL USE, UNSPECIFIED WITH WITHDRAWAL, UNSPECIFIED SNOMED Code(s): 894043585 (3) Dehydration Current Visit: Yes Status: Acute Code(s): E86.0 - DEHYDRATION SNOMED Code(s): 24519062 (4) Diarrhea Current Visit: Yes Status: Acute Code(s): R19.7 - DIARRHEA, UNSPECIFIED SNOMED Code(s): 38067522 (5) Failure to thrive Current Visit: Yes Status: Acute Code(s): NVR7838 - SNOMED Code(s): 98466300 (6) T wave inversion in EKG Current Visit: Yes Status: Acute Code(s): R94.31 - ABNORMAL ELECTROCARDIOGRAM [ECG] [EKG] SNOMED Code(s): 85137788 (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 Current Visit: No Status: Acute Code(s): F10.24 - ALCOHOL DEPENDENCE WITH ALCOHOL-INDUCED MOOD DISORDER SNOMED Code(s): 9422883952 (8) Depression Current Visit: No Status: Acute Code(s): F32.A - DEPRESSION, UNSPECIFIED SNOMED Code(s): 62615759 (9) Essential (primary) hypertension Current Visit: No Status: Acute Code(s): I10 - ESSENTIAL (PRIMARY) HYPERTENSION SNOMED Code(s): 76586788 (10) Fall Current Visit: No Status: Acute Code(s): W19.XXXA - UNSPECIFIED FALL, INITIAL ENCOUNTER SNOMED Code(s): 8516692 Plan: Patient admitted to the hospital The patient alcohol intoxication Alcohol withdrawal syndrome This case with Dr. Llanos critical care he was placed on a Precedex drip and is having breakthrough agitation He admitted to the intensive care unit detoxification
[2023-01-28 21:06] LABS: Glucose,Whole Blood 96 mg/dL (70-110)
[2023-01-28] MEDS: HALOPERIDOL LACTATE 5 MG/ML 1 ML VIAL IM PRN (21:50)
[2023-01-28] MEDS: ATORVASTATIN 20 MG TAB PO SCH (22:01)
[2023-01-29] MEDS: LORazepam 2 MG/ML INJ IV PRN ×9 (00:56→20:32)
[2023-01-29] MEDS: HALOPERIDOL LACTATE 5 MG/ML 1 ML VIAL IM PRN ×2 (01:30→05:36)
[2023-01-29] MEDS ORDERED: SODIUM CHLORIDE 0.9% 500 ML 500 ML IV ONE (06:15)
[2023-01-29] MEDS: SODIUM CHLORIDE 0.9% 1,000 ML IV SCH ×3 (06:32→17:52)
[2023-01-29] MEDS: LEVOTHYROXINE 100 MCG TAB PO SCH (07:04)
[2023-01-29] MEDS: CHOLESTYRAMINE (WITH SUGAR) 4 GM PACKET PO SCH ×4 (07:05→20:29)
[2023-01-29] MEDS: DULoxetine HCL 60 MG CAPSULE.DR PO SCH (08:15)
[2023-01-29] MEDS: THIAMINE 100 MG TAB PO SCH (08:15)
[2023-01-29] MEDS: busPIRone HCl 5 MG TAB PO SCH (08:15)
[2023-01-29] MEDS: cloNIDine HCL 0.1 MG TAB PO SCH ×2 (08:15→20:29)
[2023-01-29] MEDS: ASPIRIN 81 MG PO SCH (08:15)
[2023-01-29] MEDS: METOPROLOL SUCCINATE (ER) 25 MG TAB.ER.24H PO SCH ×2 (08:15→09:54)
[2023-01-29] MEDS: buPROPion SR 150 MG TABLET.ER PO SCH (08:16)
--- NOTE | 2023-01-29 08:32 | P.PN ---
Subjective Progress Note Date: 01/29/23 Principal diagnosis: Shortness of breath This is a 52-year-old gentleman with history of smoking and axis of alcohol abuse and drug abuse with marijuana was admitted to the hospital with a change in mental status and he was found to be in alcohol intoxication and subsequently he is going into withdrawal. Also he was tested positive for marijuana as well. We consulted to see the patient for mildly abnormal troponin. Further risk stratification including an echocardiogram was performed and showed severe cardiomyopathy was EF around 35% with global hypokinesia and moderate mitral regurgitation. January 292022 The patient was seen and evaluated this morning. He is going through withdrawal. He is tachycardic. The pressure appeared to be within normal limits. He was started yesterday on aspirin and statin and small dose of beta george. I'm going to increase the dose of Toprol-XL and adding lisinopril as well as Aldactone giving the cardiomyopathy. He needs to have a heart catheterization to rule out severe CAD once he is stable from the standpoint of view. On examination he is a slightly anxious with sinus tachycardia as described above. Assessment Alcohol withdrawal Sinus tachycardia Severe cardiomyopathy likely to be nonischemic Valvular heart disease likely secondary to cardiomyopathy History of drug abuse History of smoking Plan Increase the dose of beta george Add lisinopril and Aldactone Continue aspirin and statin Procedure coronary angiogram once he is more stable Objective - Vital Signs Vital signs: Vital Signs Temp 98.9 F 01/29/23 04:00 Pulse 117 H 01/29/23 07:00 Resp 20 01/29/23 07:00 BP 135/70 01/29/23 07:00 Pulse Ox 98 01/29/23 07:00 FiO2 Intake & Output 01/28/23 01/29/23 01/29/23 18:59 06:59 18:59 Intake Total 144.315 156.299 650 Output Total 100 Balance 144.315 56.299 650 Weight 75.32 kg Intake: IV 650 Sodium Chloride 0.9% 1, 150 000 ml @ 150 mls/hr IV . Q6H40M [facility] Rx#:[id number] Sodium Chloride 0.9% 500 500 ml 500 ml @ 999 mls/hr IV .Q31M [facility] Rx#:[id number] Intake, IV Titration 144.315 156.299 Amount Dexmedetomidine/0.9% NaCl 144.315 156.299 (Pmx) 400 mcg In Empty Bag 1 bag @ 0.2 MCG/KG/HR 3.742 mls/hr IV .Q24H [facility] Rx#:[id number] Output: Urine 100 Other: Voiding Method Diaper External Catheter # Voids 0 0 - Labs CBC & Chem 7: 01/27/23 10:48 01/27/23 10:48 Labs: Microbiology - Last 24 Hours (Table) 01/27/23 10:48 Blood Culture - Preliminary Blood 01/27/23 10:48 Blood Culture - Preliminary Blood
[2023-01-29 09:11] LABS: Basophils % (A) 0 %; Eosinophils # (A) 0.1 k/uL (0-0.7); Eosinophils % (A) 1 %; HCT 27.3 % (39.0-53.0); Lymphocytes # (A) 1.8 k/uL (1.0-4.8); Lymphocytes % (A) 21 %; MCH 33.2 pg (25.0-35.0); MCHC 32.4 g/dL (31.0-37.0); MCV 102.7 fL (80.0-100.0); Macrocytosis Slight; Mean Platelet Volume 11.1; Monocytes # (A) 0.3 k/uL (0-1.0); Monocytes % (A) 3 %; Neutrophils # (A) 6.4 k/uL (1.3-7.7); Neutrophils % (A) 73 %; RBC 2.66 m/uL (4.30-5.90); RDW 15.1 % (11.5-15.5); WBC 8.7 k/uL (3.8-10.6)
[2023-01-29 09:17] LABS: African American GFR (CKD) >90 (>60 ml/min/1.73 sqM); Anion Gap 12 mmol/L; Blood Urea Nitrogen 15 mg/dL (9-20); Calcium 7.7 mg/dL (8.4-10.2); Carbon Dioxide 18 mmol/L (22-30); Chloride 105 mmol/L (98-107); Glucose 145 mg/dL (74-99); Magnesium 1.2 mg/dL (1.6-2.3); Non-African American GFR(CKD) >90 (>60 ml/min/1.73 sqM); Potassium 3.3 mmol/L (3.5-5.1); Sodium 135 mmol/L (137-145)
[2023-01-29 09:19] LABS: HGB 8.8 gm/dL (13.0-17.5); Platelet Count 71 k/uL (150-450)
[2023-01-29] MEDS ORDERED: Potassium Replacement Protocol 1 EACH MISC MISCELLANE PRN (09:35)
[2023-01-29] MEDS ORDERED: Magnesium Replacement Protocol 1 EACH MISC MISCELLANE PRN ×2 (09:35→20:45)
[2023-01-29] MEDS: MAGNESIUM SULFATE-D5W PMX 1 GM in DEXTROSE/WATER 1 100ML.BAG IVPB SCH ×4 (09:54→13:26)
[2023-01-29] MEDS: POTASSIUM CHLORIDE ER 20 MEQ TAB.ER PO SCH ×3 (09:54→15:11)
[2023-01-29] MEDS: SPIRONOLACTONE 25 MG TAB PO SCH (09:55)
[2023-01-29] MEDS: NICOTINE 21MG/24HR PATCH TRANSDERM SCH (10:19)
--- NOTE | 2023-01-29 10:40 | P.CNPUL ---
History of Present Illness Consult date: 01/29/23 Requesting physician: Rich Ac Jr Reason for consult: other (Critical care management) Chief complaint: Failure to thrive, alcoholism History of present illness: This is a 52-year-old male patient with a known history of hypertension, hyperlipidemia, chronic cervical pain, anxiety/depression, chronic and ongoing tobacco dependence, chronic and ongoing heavy daily alcohol abuse. He also has been having issues with diarrhea for weeks and poor appetite. His brought him into the emergency room on 01/27/2023 for the same. His alcohol level was 445. Urine drug screen positive for marijuana. Influenza screen negative. RSV screen negative. COVID-19 screen negative. His stool for occult blood was positive. White count 8.7. Hemoglobin 8.8. MCV 102.7. Platelets 71,000. Sod ium 135. Potassium 3.3. Bicarb 18. BUN 15. Creatinine 0.81. Glucose 145. Magnesium 1.2. Chest x-ray revealed chronic changes of COPD without acute pulmonary process. Computed tomography scan of the abdomen and pelvis revealed no acute abdominal/pelvic process. Hepatic steatosis. Hydropic gallbladder. Echocardiogram reveals severe left ventricular systolic dysfunction with ejection fraction of 30-35%. Severe global hypokinesia. Moderate mitral and aortic regurgitation. The skin on his buttocks is extremely excoriated. He initially required Precedex while in the emergency room. That has since been weaned off. He is seen today in consultation in the ICU. He is arousable but drifts off. He has been requiring Haldol and Ativan. Maintaining good O2 saturations in the mid to upper 90s on room air. He's been afebrile. He is tachycardic. Blood pressure stable. Review of Systems ROS unobtainable: due to mental status Past Medical History Past Medical History: Hyperlipidemia, Hypertension Additional Past Medical History / Comment(s): Chronic cervical pain. Alcoholism History of Any Multi-Drug Resistant Organisms: None Reported Past Surgical History: Hernia Repair Additional Past Surgical History / Comment(s): R inguinal hernia repair, deviated septum sx, colonoscopy x 2. Past Anesthesia/Blood Transfusion Reactions: No Reported Reaction Past Psychological History: Anxiety, Depression Smoking Status: Current every day smoker Past Alcohol Use History: Abuse, Daily, Heavy Past Drug Use History: None Reported - Past Family History Mother Family Medical History: No Reported History Additional Family Medical History / Comment(s): Mother April 2022 of covid. Father Family Medical History: No Reported History Additional Family Medical History / Comment(s): Father from an accident. Medications and Allergies Home Medications Medication Instructions Recorded Confirmed Type Thiamine [Vitamin B-1] 100 mg PO DAILY #30 cap 09/01/22 01/27/23 Rx Atorvastatin [Lipitor] 20 mg PO HS 12/02/22 01/27/23 History DULoxetine HCL [Cymbalta] 60 mg PO DAILY 12/02/22 01/27/23 History Loratadine 10 mg PO DAILY 12/02/22 01/27/23 History Naproxen [Naprosyn] 500 mg PO BID PRN 12/02/22 01/27/23 History Olmesartan Medoxomil 40 mg PO DAILY 12/02/22 01/27/23 History buPROPion SR [Wellbutrin SR] 150 mg PO DAILY 12/02/22 01/27/23 History busPIRone HCL 15 mg PO DAILY 12/02/22 01/27/23 History cloNIDine HCL [Catapres] 0.1 mg PO BID 12/02/22 01/27/23 History Levothyroxine Sodium 100 mcg PO DAILY 01/27/23 01/27/23 History Mirtazapine 15 mg PO HS 01/27/23 01/27/23 History Allergies Allergy/AdvReac Type Severity Reaction Status Date / Time No Known Allergies Allergy Verified 01/27/23 12:04 Physical Exam Vitals: Vital Signs Temp Pulse Pulse Resp BP BP Pulse Ox 01/29/23 09:00 116 H 33 H 140/77 97 01/29/23 08:32 97 01/29/23 08:00 99.0 F 124 H 22 141/74 97 01/29/23 07:00 117 H 20 135/70 98 01/29/23 06:00 120 H 23 126/72 98 01/29/23 05:00 118 H 25 H 130/80 97 01/29/23 04:00 98.9 F 110 H 13 136/74 97 01/29/23 03:00 112 H 27 H 128/71 92 L 01/29/23 02:00 104 H 25 H 128/71 90 L 01/29/23 01:39 99 36 H 90 L 06/17/23 01:00 102 H 15 134/92 01/28/23 23:00 90 12 112/64 95 01/28/23 22:00 126/73 01/28/23 21:00 117/69 01/28/23 20:30 98 20 117/69 94 L 01/28/23 20:00 99.6 F 95 21 117/69 96 01/28/23 19:00 134/59 01/28/23 18:00 106 H 18 112/72 99 01/28/23 17:00 110 H 16 106/66 98 01/28/23 16:00 107 H 26 H 131/94 98 01/28/23 14:00 100 25 H 131/85 98 01/28/23 13:00 111 H 22 127/72 100 01/28/23 12:00 100 22 124/77 97 01/28/23 11:00 103 H 22 126/84 Intake and Output 01/28/23 01/29/23 01/29/23 22:59 06:59 14:59 Intake Total 142.379 38.077 950 Output Total 100 100 Balance 142.379 -61.923 850 Intake: IV 950 Sodium Chloride 0.9% 1, 450 000 ml @ 150 mls/hr IV . Q6H40M [facility] Rx#:[id number] Sodium Chloride 0.9% 500 500 ml 500 ml @ 999 mls/hr IV .Q31M [facility] Rx#:[id number] Intake, IV Titration 142.379 38.077 Amount Dexmedetomidine/0.9% NaCl 142.379 38.077 (Pmx) 400 mcg In Empty Bag 1 bag @ 0.2 MCG/KG/HR 3.742 mls/hr IV .Q24H [facility] Rx#:[id number] Output: Urine 100 100 Other: Voiding Method Diaper Incontinent External Catheter External Catheter # Voids 0 1 # Bowel Movements 1 Weight 75.32 kg GENERAL EXAM: Arousable, 52-year-old male, on room air, comfortable in no apparent distress. HEAD: Normocephalic. EYES: Normal reaction of pupils, equal size. NOSE: Clear with pink turbinates. THROAT: No erythema or exudates. NECK: No masses, no JVD. CHEST: No chest wall deformity. LUNGS: Equal air entry with no crackles, wheeze, rhonchi or dullness. CVS: S1 and S2 normal with no audible murmur, regular rhythm. ABDOMEN: No hepatosplenomegaly, normal bowel sounds, no guarding or rigidity. SPINE: No scoliosis or deformity SKIN: Excoriated buttocks CENTRAL NERVOUS SYSTEM: No focal deficits, tone is normal in all 4 extremities. EXTREMITIES: There is no peripheral edema. No clubbing, no cyanosis. Peripheral pulses are intact. Results - Laboratory Findings CBC and BMP: 01/29/23 08:47 01/29/23 08:47 PT/INR, D-dimer PT 9.3 sec (9.0-12.0) 01/27/23 10:48 INR 0.9 (<1.2) 01/27/23 10:48 Abnormal lab findings: Abnormal Labs 01/27/23 01/27/23 01/27/23 10:48 10:48 10:48 RBC 3.41 L Hgb 11.5 L Hct 34.1 L MCV Plt Count 88 L D Sodium Potassium Carbon Dioxide BUN 40 H Glucose Plasma Lactic Acid Derik 2.5 H* Calcium 8.0 L Magnesium AST 326 H ALT 157 H Alkaline Phosphatase 268 H Troponin I Total Protein 6.1 L Albumin 3.4 L Urine Protein Urine Ketones Urine Blood Urine Mucus U Marijuana (THC) Screen Serum Alcohol 445 H* 01/27/23 01/27/23 01/27/23 10:48 10:58 10:58 RBC Hgb Hct MCV Plt Count Sodium Potassium Carbon Dioxide BUN Glucose Plasma Lactic Acid Derik Calcium Magnesium AST ALT Alkaline Phosphatase Troponin I 0.037 H* Total Protein Albumin Urine Protein 1+ H Urine Ketones 1+ H Urine Blood Small H Urine Mucus Rare H U Marijuana (THC) Screen Detected H Serum Alcohol 01/29/23 01/29/23 08:47 08:47 RBC 2.66 L Hgb 8.8 L D Hct 27.3 L MCV 102.7 H Plt Count 71 L Sodium 135 L Potassium 3.3 L Carbon Dioxide 18 L BUN Glucose 145 H Plasma Lactic Acid Derik Calcium 7.7 L Magnesium 1.2 L AST ALT Alkaline Phosphatase Troponin I Total Protein Albumin Urine Protein Urine Ketones Urine Blood Urine Mucus U Marijuana (THC) Screen Serum Alcohol - Diagnostic Findings Chest x-ray: image reviewed Assessment and Plan Assessment: Acute alcohol withdrawal syndrome presenting serum alcohol level 445 Urine drug screen positive for marijuana Failure to thrive with poor appetite and weeks of diarrhea, stool for occult blood positive Excoriated buttocks secondary to diarrhea Anemia Thrombocytopenia Transaminitis Chronic and ongoing tobacco dependence Severe cardiomyopathy suspect secondary to alcoholism, possible coronary artery disease, ejection fraction 30-35% History of anxiety/depression Hypertension Hyperlipidemia Hypothyroidism Plan: The patient was seen and evaluated Chest x-ray, echocardiogram, labs and medications reviewed Precedex discontinued We'll utilize Haldol and Ativan as needed Continue the CIWA protocol and continue thiamine NicoDerm patch added Electrolyte replacement Continue fluid resuscitation with normal saline at 150 MLS per hour Cardiology is following regarding cardiomyopathy Psychiatry has been consulted We'll continue to monitor him closely here in the intensive care unit We will continue to follow and make further recommendations based on his clinical status I have personally seen and examined the patient, performed the documentation and the assessment and plan as written. Number of minutes spent on the visit: 20.
--- NOTE | 2023-01-29 13:40 | P.PN ---
Subjective Progress Note Date: 01/29/23 Principal diagnosis: Alcohol withdrawal, failure to thrive This is a 52-year-old patient new to my practice for history of hypertension hyperlipidemia chronic cervical pain, anxiety depression, chronic tobacco use chronic heavy marijuana use and chronic alcohol abuse daily use, patient presented to the hospital with alcohol level originally of 445, patient's urine drug screen was positive for marijuana, influenza RSV, covid 19 all were negative, stool for occult blood was positive patient's white count was 8.7 and globulin 8.8 platelets 71, oddly enough his ammonia level was normal chest x-ray demonstrated no acute process changes of COPD, CT of the abdomen demonstrated no acute processes. His echo demonstrated an EF of 30-35 with severe global hypokinesia and moderate mitral and aortic regurgitation probably secondary to alcoholic cardiomyopathy. This patient has an experiencing significant diarrhea at home has been laying in the bed in stool and urine his has been caring for him as best as she can well going to work. I was asked to intervene on his behalf at the request of my who has been a long-standing friend and [employer] employee. Patient was originally on a Precedex drip in the emergency room that has since been stopped patient is currently easily agitated and is been on this CIWA, alternating Haldol and Ativan Objective - Vital Signs Vital signs: Vital Signs Temp 99.0 F 01/29/23 08:00 Pulse 113 H 01/29/23 11:00 Resp 35 H 01/29/23 11:00 BP 121/73 01/29/23 11:00 Pulse Ox 98 01/29/23 11:00 FiO2 Intake & Output 01/28/23 01/29/23 01/29/23 18:59 06:59 18:59 Intake Total 144.315 491.322 0993 Output Total 100 100 Balance 144.315 56.299 1350 Weight 75.32 kg Intake: IV 1250 Sodium Chloride 0.9% 1, 750 000 ml @ 150 mls/hr IV . Q6H40M [facility] Rx#:[id number] Sodium Chloride 0.9% 500 500 ml 500 ml @ 999 mls/hr IV .Q31M [facility] Rx#:[id number] Intake, IV Titration 144.315 156.299 200 Amount Dexmedetomidine/0.9% NaCl 144.315 156.299 (Pmx) 400 mcg In Empty Bag 1 bag @ 0.2 MCG/KG/HR 3.742 mls/hr IV .Q24H [facility] Rx#:[id number] Magnesium Sulfate-D5w Pmx 200 1 gm In Dextrose/Water 1 100ml.bag @ 100 mls/hr IVPB Q1H [facility] Rx#: [id number] Output: Urine 100 100 Other: Voiding Method Diaper Incontinent External Catheter External Catheter # Voids 0 1 # Bowel Movements 1 - Exam General: [Patient intermittently sleeping and awake less agitated. Patient in no acute distress.] HEENT: [PERRL. EOMI. No pharyngeal erythema or exudate.] Neck: [No adenopathy.] Cardiac: [Heart regular in rate and rhythm. No S3. No S4. No clicks, rubs. No murmur.] Lungs: [Clear to auscultation bilaterally.] Abdomen: [No mass. No organomegaly. Bowel sounds presnt and normoactive in all 4 quadrants.] Buttocks excoriated perineal area excoriated Extremes: [No edema no cyanosis no claudication normal pulses] : Normal male genitalia Musculoskeletal: [No joint erythema, edema or tenderness.] Skin: [No rash.] Neurologic: [No lateralizing deficits. CN II - XII grossly intact.] Lymphatic: [No adenopathy.] - Labs CBC & Chem 7: 01/29/23 08:47 01/29/23 08:47 Labs: Abnormal Lab Results - Last 24 Hours (Table) 01/29/23 01/29/23 Range/Units 08:47 08:47 RBC 2.66 L (4.30-5.90) m/uL Hgb 8.8 L D (13.0-17.5) gm/dL Hct 27.3 L (39.0-53.0) % MCV 102.7 H (80.0-100.0) fL Plt Count 71 L (150-450) k/uL Sodium 135 L (137-145) mmol/L Potassium 3.3 L (3.5-5.1) mmol/L Carbon Dioxide 18 L (22-30) mmol/L Glucose 145 H (74-99) mg/dL Calcium 7.7 L (8.4-10.2) mg/dL Magnesium 1.2 L (1.6-2.3) mg/dL Microbiology - Last 24 Hours (Table) 01/27/23 10:48 Blood Culture - Preliminary Blood 01/27/23 10:48 Blood Culture - Preliminary Blood Assessment and Plan (1) Alcohol intoxication Current Visit: Yes Status: Acute Code(s): F10.929 - ALCOHOL USE, UNSPECIFIED WITH INTOXICATION, UNSPECIFIED SNOMED Code(s): 88299885 (2) Alcohol withdrawal Current Visit: Yes Status: Acute Code(s): F10.939 - ALCOHOL USE, UNSPECIFIED WITH WITHDRAWAL, UNSPECIFIED SNOMED Code(s): 191198842 (3) Dehydration Current Visit: Yes Status: Acute Code(s): E86.0 - DEHYDRATION SNOMED Code(s): 62837039 (4) Diarrhea Current Visit: Yes Status: Acute Code(s): R19.7 - DIARRHEA, UNSPECIFIED SNOMED Code(s): 73654585 (5) Failure to thrive Current Visit: Yes Status: Acute Code(s): TZN0666 - SNOMED Code(s): 47818760 (6) T wave inversion in EKG Current Visit: Yes Status: Acute Code(s): R94.31 - ABNORMAL ELECTROCARDIOGRAM [ECG] [EKG] SNOMED Code(s): 64500108 (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 Current Visit: No Status: Acute Code(s): F10.24 - ALCOHOL DEPENDENCE WITH ALCOHOL-INDUCED MOOD DISORDER SNOMED Code(s): 9405909190 (8) Depression Current Visit: No Status: Acute Code(s): F32.A - DEPRESSION, UNSPECIFIED SNOMED Code(s): 79842645 (9) Essential (primary) hypertension Current Visit: No Status: Acute Code(s): I10 - ESSENTIAL (PRIMARY) HYPERTENSION SNOMED Code(s): 18221054 (10) Fall Current Visit: No Status: Acute Code(s): W19.XXXA - UNSPECIFIED FALL, INITIAL ENCOUNTER SNOMED Code(s): 8869012 Plan: Patient is currently in the ICU Alcohol intoxication Dehydration Anemia Thrombocytopenia Transaminitis Chronic tobacco dependence Severe cardiomyopathy probably due to alcoholism possibly coronary artery disease Strube anxiety depression Retention hyperlipidemia Hypothyroidism probably secondary to alcoholism Plan: Labs and diagnostic studies reviewed Haldol, Ativan used intermittently for agitation and alcohol withdrawal Continue [facility] protocol Electrolyte replacement, fluid resuscitation Replacing multivitamin thiamine Psychiatry consult was placed Continue supportive care and monitoring Time with Patient: Greater than 30
--- NOTE | 2023-01-29 15:54 | P.PN ---
Progress Note - Text Progress Note Date: 01/29/23 Interval History: Patient was seen bedside this afternoon. He is currently off the Precedex and receiving Ativan per [facility] protocol. Patient is somewhat irritable on exam and says that he is "tired of being here ". He says that he is frustrated with "pooping in my pants ". He says that he is tremulous at baseline and that his tremors have significantly improved now. He admits that his intake of alcohol places him at high risk and says that he plans to quit drinking now. However, patient is unable to voice any reasonable plans for coping skills that could help him remain sober. Despite discussion, he is uninterested in rehab. He says that he is not interested in alcohol anonymous because "they just around Bible ". He states that he does not want to be talking to anybody because he does not think that is helpful. Discussed recommendation for rehab and therapy. Did motivational interviewing with patient. He was agreeable with trying Campral to help with maintaining alcohol abstinence. He says that he will be able to take this medication 3 times a day because he has a pillbox at home. At this time patient denies any suicidal or homicidal ideations, intent or plan. Patient denies any auditory, visual hallucinations and denies any paranoia or delusions. Patient denies any side effects from the medications and has been compliant with meds. Laboratory Results WBC 8.7 k/uL (3.8-10.6) 01/29/23 08:47 RBC 2.66 m/uL (4.30-5.90) L 01/29/23 08:47 Hgb 8.8 gm/dL (13.0-17.5) L D 01/29/23 08:47 Hct 27.3 % (39.0-53.0) L 01/29/23 08:47 MCV 102.7 fL (80.0-100.0) H 01/29/23 08:47 MCH 33.2 pg (25.0-35.0) 01/29/23 08:47 MCHC 32.4 g/dL (31.0-37.0) 01/29/23 08:47 RDW 15.1 % (11.5-15.5) 01/29/23 08:47 Plt Count 71 k/uL (150-450) L 01/29/23 08:47 MPV 11.1 01/29/23 08:47 Neutrophils % 73 % 01/29/23 08:47 Lymphocytes % 21 % 01/29/23 08:47 Monocytes % 3 % 01/29/23 08:47 Eosinophils % 1 % 01/29/23 08:47 Basophils % 0 % 01/29/23 08:47 Neutrophils # 6.4 k/uL (1.3-7.7) 01/29/23 08:47 Lymphocytes # 1.8 k/uL (1.0-4.8) 01/29/23 08:47 Monocytes # 0.3 k/uL (0-1.0) 01/29/23 08:47 Eosinophils # 0.1 k/uL (0-0.7) 01/29/23 08:47 Basophils # 0.0 k/uL (0-0.2) 01/29/23 08:47 Manual Slide Review Perf 01/27/23 10:48 Macrocytosis Slight 01/29/23 08:47 PT 9.3 sec (9.0-12.0) 01/27/23 10:48 INR 0.9 (<1.2) 01/27/23 10:48 APTT 23.5 sec (22.0-30.0) 01/27/23 10:48 Sodium 135 mmol/L (137-145) L 01/29/23 08:47 Potassium 3.5 mmol/L (3.5-5.1) 01/29/23 13:11 Chloride 105 mmol/L (98-107) 01/29/23 08:47 Carbon Dioxide 18 mmol/L (22-30) L 01/29/23 08:47 Anion Gap 12 mmol/L 01/29/23 08:47 BUN 15 mg/dL (9-20) 01/29/23 08:47 Creatinine 0.81 mg/dL (0.66-1.25) 01/29/23 08:47 Est GFR (CKD-EPI)AfAm >90 (>60 ml/min/1.73 sqM) 01/29/23 08:47 Est GFR (CKD-EPI)NonAf >90 (>60 ml/min/1.73 sqM) 01/29/23 08:47 Glucose 145 mg/dL (74-99) H 01/29/23 08:47 POC Glucose (mg/dL) 96 mg/dL (70-110) 01/28/23 21:04 POC Glu Field Support Engineer ID Eulalia Rico 01/28/23 21:04 Lactic Ac Sepsis Rflx Y 01/27/23 12:22 Plasma Lactic Acid Derik 1.6 mmol/L (0.7-2.0) 01/27/23 14:45 Calcium 7.7 mg/dL (8.4-10.2) L 01/29/23 08:47 Magnesium 1.2 mg/dL (1.6-2.3) L 01/29/23 08:47 Total Bilirubin 0.8 mg/dL (0.2-1.3) 01/27/23 10:48 AST 326 U/L (17-59) H 01/27/23 10:48 ALT 157 U/L (4-49) H 01/27/23 10:48 Alkaline Phosphatase 268 U/L (38-126) H 01/27/23 10:48 Ammonia <9 umol/L (<30) 01/28/23 14:03 Troponin I 0.025 ng/mL (0.000-0.034) 01/27/23 21:11 Total Protein 6.1 g/dL (6.3-8.2) L 01/27/23 10:48 Albumin 3.4 g/dL (3.5-5.0) L 01/27/23 10:48 Urine Color Yellow 01/27/23 10:58 Urine Appearance Clear (Clear) 01/27/23 10:58 Urine pH 5.5 (5.0-8.0) 01/27/23 10:58 Ur Specific [place] 1.012 (1.001-1.035) 01/27/23 10:58 Urine Protein 1+ (Negative) H 01/27/23 10:58 Urine Glucose (UA) Negative (Negative) 01/27/23 10:58 Urine Ketones 1+ (Negative) H 01/27/23 10:58 Urine Blood Small (Negative) H 01/27/23 10:58 Urine Nitrite Negative (Negative) 01/27/23 10:58 Urine Bilirubin Negative (Negative) 01/27/23 10:58 Urine Urobilinogen <2.0 mg/dL (<2.0) 01/27/23 10:58 Ur Leukocyte Esterase Negative (Negative) 01/27/23 10:58 Urine RBC 1 /hpf (0-5) 01/27/23 10:58 Urine WBC 2 /hpf (0-5) 01/27/23 10:58 Urine Mucus Rare /hpf (None) H 01/27/23 10:58 Stool Occult Blood Positive (Negative) 01/29/23 12:10 Urine Opiates Screen Not Detected (NotDetected) 01/27/23 10:58 Ur Oxycodone Screen Not Detected (NotDetected) 01/27/23 10:58 Urine Methadone Screen Not Detected (NotDetected) 01/27/23 10:58 Ur Propoxyphene Screen Not Detected (NotDetected) 01/27/23 10:58 Ur Barbiturates Screen Not Detected (NotDetected) 01/27/23 10:58 U Tricyclic Antidepress Not Detected (NotDetected) 01/27/23 10:58 Ur Phencyclidine Scrn Not Detected (NotDetected) 01/27/23 10:58 Ur Amphetamines Screen Not Detected (NotDetected) 01/27/23 10:58 U Methamphetamines Scrn Not Detected (NotDetected) 01/27/23 10:58 U Benzodiazepines Scrn Not Detected (NotDetected) 01/27/23 10:58 Urine Cocaine Screen Not Detected (NotDetected) 01/27/23 10:58 U Marijuana (THC) Screen Detected (NotDetected) H 01/27/23 10:58 Serum Alcohol 445 mg/dL H* 01/27/23 10:48 C. difficile (EIA) Intrp Negative (Negative) 01/29/23 12:10 Influenza Type A (PCR) Not Detected (Not Detectd) 01/27/23 10:48 Influenza Type B (PCR) Not Detected (Not Detectd) 01/27/23 10:48 RSV (PCR) Not Detected (Not Detectd) 01/27/23 10:48 SARS-CoV-2 (PCR) Not Detected (Not Detectd) 01/27/23 10:48 Blood Type O Negative 01/27/23 14:45 Blood Type Confirm O Negative 01/27/23 15:00 Blood Type Recheck No Previous Record 01/27/23 14:45 Bld Type Recheck Status CABO Indicated 01/27/23 14:45 Antibody Screen NEGATIVE 01/27/23 14:45 Spec Expiration Date 01/30/2023234401/27/23 14:45 Mental Status Exam: General Appearance: Patient appears to be stated age is alert and cooperative. Patient appears to have slightly disheveled hygiene and grooming wearing hospital gown with fair eye contact. Behavior: Patient is lying down in bed and appears to be tremulous. Speech: Patient's speech is fluent and nonpressured. Mood/Affect: Patient reports their mood is "fine." Affect is irritable Suicidality/Homicidality: Patient denies any suicidal or homicidal ideation, intention, and/or plan. Perceptions: Patient denies any visual hallucinations and denies any auditory hallucinations Though content/process: There is no evidence of any delusional thought content a nd thought process is linear and goal-directed. Memory and concentration: AOX3, grossly intact for the purposes of this session. Can spell "WORLD" backwards Judgment and insight: Fair Assessment Alcohol use disorder Alcohol induced depressive disorder PLAN: -Continue your medical management for alcohol withdrawal -At this time patient DOES NOT meet criteria for inpatient psychiatric admission. Primary issue is alcohol use disorder and not mood disorder. Despite efforts to address depressive symptoms, due to ongoing alcoholism, psychiatric intervention will remain fruitless. It is strongly recommended that due to the severity of his alcohol use disorder, the patient pursue a higher level of treatment such as inpatient substance abuse rehabilitation. Patient does not have certifiable criteria for inpatient psychiatric admission at this time. -Would recommend the following medication changes/additions: Start Campral 666 mg TID for alcohol abstinence Stop Wellbutrin 150 mg. Although this is not a high dose, it is not worth the risk given patient's risk with alcohol consumption and potential for withdrawal seizures Continue home Cymbalta, Remeron, Clonidine, and Buspar CIWA protocol per primary team -Side effects, risks, alternatives discussed with patient. Patient agreed with above plan. -Attempted to discuss other alternatives for mood but patient is not amenable to such a discussion at this time. -Motivational interviewing to address alcohol cessation was discussed in great detail with the patient -service worker to provide resources for alcohol anonymous, outpatient and inpatient rehab for patient to consider prior to discharge -Psychiatry signing off. Please call with any questions. Thank you for the consult
[2023-01-29] MEDS: ACAMPROSATE CALCIUM 333 MG TABLET.DR PO SCH ×2 (17:49→20:31)
[2023-01-29 19:41] LABS: Magnesium 1.7 mg/dL (1.6-2.3); Potassium 3.9 mmol/L (3.5-5.1)
[2023-01-29] MEDS: ATORVASTATIN 20 MG TAB PO SCH (20:29)
[2023-01-29] MEDS: MIRTAZAPINE 15 MG TAB PO SCH (20:30)
[2023-01-29] MEDS ORDERED: MAGNESIUM SULFATE-D5W PMX 1 GM in DEXTROSE/WATER 1 100ML.BAG IVPB ONE (20:45)
[2023-01-30] MEDS: SODIUM CHLORIDE 0.9% 1,000 ML IV SCH ×2 (02:22→11:19)
[2023-01-30] MEDS: LORazepam 2 MG/ML INJ IV PRN ×12 (02:22→23:59)
[2023-01-30 04:37] LABS: African American GFR (CKD) >90 (>60 ml/min/1.73 sqM); Anion Gap 6 mmol/L; Blood Urea Nitrogen 9 mg/dL (9-20); Calcium 7.4 mg/dL (8.4-10.2); Carbon Dioxide 20 mmol/L (22-30); Chloride 106 mmol/L (98-107); Glucose 105 mg/dL (74-99); Non-African American GFR(CKD) >90 (>60 ml/min/1.73 sqM); Potassium 3.7 mmol/L (3.5-5.1); Sodium 132 mmol/L (137-145)
[2023-01-30 04:38] LABS: Basophils % (A) 0 %; Eosinophils # (A) 0.1 k/uL (0-0.7); Eosinophils % (A) 2 %; HCT 23.7 % (39.0-53.0); HGB 7.9 gm/dL (13.0-17.5); Lymphocytes # (A) 1.7 k/uL (1.0-4.8); Lymphocytes % (A) 21 %; MCH 34.3 pg (25.0-35.0); MCHC 33.2 g/dL (31.0-37.0); MCV 103.4 fL (80.0-100.0); Macrocytosis Slight; Monocytes # (A) 0.4 k/uL (0-1.0); Monocytes % (A) 5 %; Neutrophils # (A) 5.7 k/uL (1.3-7.7); Neutrophils % (A) 71 %; Platelet Count 86 k/uL (150-450); RBC 2.29 m/uL (4.30-5.90); RDW 14.8 % (11.5-15.5)
[2023-01-30] MEDS ORDERED: Potassium Replacement Protocol 1 EACH MISC MISCELLANE PRN (04:48)
[2023-01-30] MEDS ORDERED: POTASSIUM BICARBONATE/CIT AC 20 MEQ TABLET.EFF NG-TUBE SCH (05:00)
[2023-01-30] MEDS: LEVOTHYROXINE 100 MCG TAB PO SCH (06:48)
[2023-01-30] MEDS ORDERED: Magnesium Replacement Protocol 1 EACH MISC MISCELLANE PRN (07:13)
[2023-01-30] MEDS: CHOLESTYRAMINE (WITH SUGAR) 4 GM PACKET PO SCH ×4 (07:40→20:46)
[2023-01-30] MEDS ORDERED: POTASSIUM CHLORIDE ER 20 MEQ TAB.ER PO SCH (08:00)
[2023-01-30] MEDS ORDERED: MAGNESIUM SULFATE-D5W PMX 1 GM in DEXTROSE/WATER 1 100ML.BAG IVPB ONE ×2 (08:00→16:41)
[2023-01-30] MEDS: cloNIDine HCL 0.1 MG TAB PO SCH ×2 (08:11→20:46)
[2023-01-30] MEDS: DULoxetine HCL 60 MG CAPSULE.DR PO SCH (08:11)
[2023-01-30] MEDS: ASPIRIN 81 MG PO SCH (08:11)
[2023-01-30] MEDS: THIAMINE 100 MG TAB PO SCH (08:11)
[2023-01-30] MEDS: SPIRONOLACTONE 25 MG TAB PO SCH (08:12)
[2023-01-30] MEDS: METOPROLOL SUCCINATE (ER) 25 MG TAB.ER.24H PO SCH (08:12)
[2023-01-30] MEDS: busPIRone HCl 5 MG TAB PO SCH (08:12)
[2023-01-30] MEDS: ACAMPROSATE CALCIUM 333 MG TABLET.DR PO SCH ×3 (08:12→20:46)
[2023-01-30] MEDS: NICOTINE 21MG/24HR PATCH TRANSDERM SCH ×2 (08:13→23:59)
--- NOTE | 2023-01-30 10:40 | P.PN ---
Subjective Progress Note Date: 01/30/23 This is a 52-year-old male patient with a known history of hypertension, hyperlipidemia, chronic cervical pain, anxiety/depression, chronic and ongoing tobacco dependence, chronic and ongoing heavy daily alcohol abuse. He also has been having issues with diarrhea for weeks and poor appetite. His brought him into the emergency room on 01/27/2023 for the same. His alcohol level was 445. Urine drug screen positive for marijuana. Influenza screen negative. RSV screen negative. COVID-19 screen negative. His stool for occult blood was positive. White count 8.7. Hemoglobin 8.8. MCV 102.7. Platelets 71,000. Sodium 135. Potassium 3.3. Bicarb 18. BUN 15. Creatinine 0.81. Glucose 145. Magnesium 1.2. Chest x-ray revealed chronic changes of COPD without acute pulmonary process. Computed tomography scan of the abdomen and pelvis revealed no acute abdominal/pelvic process. Hepatic steatosis. Hydropic gallbladder. Echocardiogram reveals severe left ventricular systolic dysfunction with ejection fraction of 30-35%. Severe global hypokinesia. Moderate mitral and aortic regurgitation. The skin on his buttocks is extremely excoriated. He initially required Precedex while in the emergency room. That has since been weaned off. He is seen today in consultation in the ICU. He is arousable but drifts off. He has been requiring Haldol and Ativan. Maintaining good O2 satur ations in the mid to upper 90s on room air. He's been afebrile. He is tachycardic. Blood pressure stable. The patient is seen today 01/30/2023 in follow-up in the intensive care unit. He is currently resting comfortably in bed. Awake and alert. Maintaining good O2 saturations in the 90s on room air. He's been afebrile. Still somewhat tachycardic. Blood pressure stable. Blood cultures reveal no growth. White count 8.0. Hemoglobin 7.9. MCV 103.4. Platelet count 86,000. Sodium 132. Potassium 3.7. Bicarb 20. BUN 9. Creatinine 0.69. Glucose 105. C. difficile screen was negative. He remains in the CIWA protocol. NicoDerm patches in place. He remains on normal saline at 150 MLS per hour. He is tolerating a diet. Objective - Vital Signs Vital signs: Vital Signs Temp 99.0 F 01/30/23 08:00 Pulse 121 H 01/30/23 07:00 Resp 41 H 01/30/23 09:00 BP 122/73 01/30/23 09:00 Pulse Ox 97 01/30/23 09:00 FiO2 Intake & Output 01/29/23 01/30/23 01/30/23 18:59 06:59 18:59 Intake Total 3600 1950 170 Output Total 520 1750 350 Balance 3080 200 -180 Weight 76.3 kg Intake: IV 2300 1950 170 Sodium Chloride 0.9% 1, 1800 1950 170 000 ml @ 20 mls/hr IV . Q24H [facility] Rx#:[id number] Sodium Chloride 0.9% 500 500 ml 500 ml @ 999 mls/hr IV .Q31M [facility] Rx#:[id number] Intake, IV Titration 500 Amount Magnesium Sulfate-D5w Pmx 500 1 gm In Dextrose/Water 1 100ml.bag @ 100 mls/hr IVPB Q1H [facility] Rx#: [id number] Oral 800 Output: Urine 520 1750 350 Other: Voiding Method Incontinent Indwelling Catheter Indwelling Catheter External Catheter # Voids 1 # Bowel Movements 2 - Exam GENERAL EXAM: Awake, alert, 52-year-old male, on room air, iin no apparent distress. HEAD: Normocephalic. EYES: Normal reaction of pupils, equal size. NOSE: Clear with pink turbinates. THROAT: No erythema or exudates. NECK: No masses, no JVD. CHEST: No chest wall deformity. LUNGS: Equal air entry with no crackles, wheeze, rhonchi or dullness. CVS: S1 and S2 normal with no audible murmur, regular rhythm. ABDOMEN: No hepatosplenomegaly, normal bowel sounds, no guarding or rigidity. SPINE: No scoliosis or deformity SKIN: Excoriated buttocks CENTRAL NERVOUS SYSTEM: No focal deficits, tone is normal in all 4 extremities. EXTREMITIES: There is no peripheral edema. No clubbing, no cyanosis. Peripheral pulses are intact. - Labs CBC & Chem 7: 01/30/23 03:43 01/30/23 03:43 Labs: Abnormal Lab Results - Last 24 Hours (Table) 01/30/23 01/30/23 Range/Units 03:43 03:43 RBC 2.29 L (4.30-5.90) m/uL Hgb 7.9 L (13.0-17.5) gm/dL Hct 23.7 L (39.0-53.0) % MCV 103.4 H (80.0-100.0) fL Plt Count 86 L (150-450) k/uL Sodium 132 L (137-145) mmol/L Carbon Dioxide 20 L (22-30) mmol/L Glucose 105 H (74-99) mg/dL Calcium 7.4 L (8.4-10.2) mg/dL Microbiology - Last 24 Hours (Table) 01/27/23 10:48 Blood Culture - Preliminary Blood 01/27/23 10:48 Blood Culture - Preliminary Blood Assessment and Plan Assessment: Acute alcohol withdrawal syndrome presenting serum alcohol level 445 Urine drug screen positive for marijuana Failure to thrive with poor appetite and weeks of diarrhea, stool for occult blood positive Excoriated buttocks secondary to diarrhea Anemia Thrombocytopenia Transaminitis Chronic and ongoing tobacco dependence Severe cardiomyopathy suspect secondary to alcoholism, possible coronary artery disease, ejection fraction 30-35% History of anxiety/depression Hypertension Hyperlipidemia Hypothyroidism Plan: The patient was seen and evaluated Labs and medications reviewed Continue the [facility] protocol Transfer to the selective care unit with telemetry We will continue to follow I have personally seen and examined the patient, performed the documentation and the assessment and plan as written. Number of minutes spent on the visit: 10.
--- NOTE | 2023-01-30 10:45 | P.PN ---
Subjective Progress Note Date: 01/30/23 Principal diagnosis: Shortness of breath This is a 52-year-old gentleman with history of smoking and axis of alcohol abuse and drug abuse with marijuana was admitted to the hospital with a change in mental status and he was found to be in alcohol intoxication and subsequently he is going into withdrawal. Also he was tested positive for marijuana as well. We consulted to see the patient for mildly abnormal troponin. Further risk stratification including an echocardiogram was performed and showed severe cardiomyopathy was EF around 35% with global hypokinesia and moderate mitral regurgitation. January [id number] The patient was seen and evaluated this morning. He is going through withdrawal. He is tachycardic. The pressure appeared to be within normal limits. He was started yesterday on aspirin and statin and small dose of beta george. I'm going to increase the dose of Toprol-XL and adding lisinopril as well as Aldactone giving the cardiomyopathy. He needs to have a heart catheterization to rule out severe CAD once he is stable from the standpoint of view. 01/30/2023 The patient was seen this morning. He still going through withdrawal. He still slightly tachycardic. The dose of beta george was increased yesterday and beside that he is on lisinopril as well as Aldactone. Kidney function remains stable. The hemoglobin is a slightly low but remains a stable as well. The patient is in process of being transferred to [facility]. On examination he is a slightly anxious with sinus tachycardia as described above. Assessment Alcohol withdrawal Sinus tachycardia Severe cardiomyopathy likely to be nonischemic Valvular heart disease likely secondary to cardiomyopathy History of drug abuse History of smoking Plan Continue the current medical regimen Procedure coronary angiogram once he is more stable Objective - Vital Signs Vital signs: Vital Signs Temp 99.0 F 01/30/23 08:00 Pulse 121 H 01/30/23 07:00 Resp 41 H 01/30/23 09:00 BP 122/73 01/30/23 09:00 Pulse Ox 97 01/30/23 09:00 FiO2 Intake & Output 01/29/23 01/30/23 01/30/23 18:59 06:59 18:59 Intake Total 3600 1950 170 Output Total 520 1750 350 Balance 3080 200 -180 Weight 76.3 kg Intake: IV 2300 1950 170 Sodium Chloride 0.9% 1 1800 1950 170 000 ml @ 20 mls/hr IV . Q24H [facility] Rx#:[id number] Sodium Chloride 0.9% 500 500 ml 500 ml @ 999 mls/hr IV .Q31M [facility] Rx#:[id number] Intake, IV Titration 500 Amount Magnesium Sulfate-D5w Pmx 500 1 gm In Dextrose/Water 1 100ml.bag @ 100 mls/hr IVPB Q1H [facility] Rx#: [id number] Oral 800 Output: Urine 520 1750 350 Other: Voiding Method Incontinent Indwelling Catheter Indwelling Catheter External Catheter # Voids 1 # Bowel Movements 2 - Labs CBC & Chem 7: 01/30/23 03:43 01/30/23 03:43 Labs: Abnormal Lab Results - Last 24 Hours (Table) 01/30/23 01/30/23 Range/Units 03:43 03:43 RBC 2.29 L (4.30-5.90) m/uL Hgb 7.9 L (13.0-17.5) gm/dL Hct 23.7 L (39.0-53.0) % MCV 103.4 H (80.0-100.0) fL Plt Count 86 L (150-450) k/uL Sodium 132 L (137-145) mmol/L Carbon Dioxide 20 L (22-30) mmol/L Glucose 105 H (74-99) mg/dL Calcium 7.4 L (8.4-10.2) mg/dL Microbiology - Last 24 Hours (Table) 01/27/23 10:48 Blood Culture - Preliminary Blood 01/27/23 10:48 Blood Culture - Preliminary Blood
--- NOTE | 2023-01-30 11:05 | P.PN ---
Subjective Progress Note Date: 01/30/23 Principal diagnosis: Alcohol withdrawal, failure to thrive This is a 52-year-old patient new to my practice for history of hypertension hyperlipidemia chronic cervical pain, anxiety depression, chronic tobacco use chronic heavy marijuana use and chronic alcohol abuse daily use, patient presented to the hospital with alcohol level originally of 445, patient's urine drug screen was positive for marijuana, influenza RSV, covid 19 all were negative, stool for occult blood was positive patient's white count was 8.7 and globulin 8.8 platelets 71, oddly enough his ammonia level was normal chest x-ray demonstrated no acute process changes of COPD, CT of the abdomen demonstrated no acute processes. His echo demonstrated an EF of 30-35 with severe global hypokinesia and moderate mitral and aortic regurgitation probably secondary to alcoholic cardiomyopathy. This patient has an experiencing significant diarrhea at home has been laying in the bed in stool and urine his has been caring for him as best as she can well going to work. I was asked to intervene on his behalf at the request of my who has been a long-standing friend and [employer] employee. Patient was originally on a Precedex drip in the emergency room that has since been stopped patient is currently easily agitated and is been on this CIWA, alternating Haldol and Atiivan 01/30/2023 Patient is awake alert and much less agitated, still on ciwa protocol diarrhea has improved Objective - Vital Signs Vital signs: Vital Signs Temp 99.0 F 01/30/23 08:00 Pulse 121 H 01/30/23 07:00 Resp 41 H 01/30/23 09:00 BP 122/73 01/30/23 09:00 Pulse Ox 97 01/30/23 09:00 FiO2 Intake & Output 01/29/23 01/30/23 01/30/23 18:59 06:59 18:59 Intake Total 3600 1950 170 Output Total 520 1750 350 Balance 3080 200 -180 Weight 76.3 kg Intake: IV 2300 1950 170 Sodium Chloride 0.9% 1, 1800 1950 170 000 ml @ 20 mls/hr IV . Q24H [facility] Rx#:[id number] Sodium Chloride 0.9% 500 500 ml 500 ml @ 999 mls/hr IV .Q31M [facility] Rx#:[id number] Intake, IV Titration 500 Amount Magnesium Sulfate-D5w Pmx 500 1 gm In Dextrose/Water 1 100ml.bag @ 100 mls/hr IVPB Q1H [facility] Rx#: [id number] Oral 800 Output: Urine 520 1750 350 Other: Voiding Method Incontinent Indwelling Catheter Indwelling Catheter External Catheter # Voids 1 # Bowel Movements 2 - Exam General: [Patient intermittently sleeping and awake less agitated. Patient in no acute distress.] HEENT: [PERRL. EOMI. No pharyngeal erythema or exudate.] Neck: [No adenopathy.] Cardiac: [Heart regular in rate and rhythm. No S3. No S4. No clicks, rubs. No murmur.] Lungs: [Clear to auscultation bilaterally.] Abdomen: [No mass. No organomegaly. Bowel sounds presnt and normoactive in all 4 quadrants.] Buttocks excoriated perineal area excoriated Extremes: [No edema no cyanosis no claudication normal pulses] : Normal male genitalia Musculoskeletal: [No joint erythema, edema or tenderness.] Skin: [No rash.] Neurologic: [No lateralizing deficits. CN II - XII grossly intact.] Lymphatic: [No adenopathy.] - Labs CBC & Chem 7: 01/30/23 03:43 01/30/23 03:43 Labs: Abnormal Lab Results - Last 24 Hours (Table) 01/30/23 01/30/23 Range/Units 03:43 03:43 RBC 2.29 L (4.30-5.90) m/uL Hgb 7.9 L (13.0-17.5) gm/dL Hct 23.7 L (39.0-53.0) % MCV 103.4 H (80.0-100.0) fL Plt Count 86 L (150-450) k/uL Sodium 132 L (137-145) mmol/L Carbon Dioxide 20 L (22-30) mmol/L Glucose 105 H (74-99) mg/dL Calcium 7.4 L (8.4-10.2) mg/dL Microbiology - Last 24 Hours (Table) 01/27/23 10:48 Blood Culture - Preliminary Blood 01/27/23 10:48 Blood Culture - Preliminary Blood Assessment and Plan (1) Alcohol intoxication Current Visit: Yes Status: Acute Code(s): F10.929 - ALCOHOL USE, UNSPECIFIED WITH INTOXICATION, UNSPECIFIED SNOMED Code(s): 73011856 (2) Alcohol withdrawal Current Visit: Yes Status: Acute Code(s): F10.939 - ALCOHOL USE, UNSPECIFIED WITH WITHDRAWAL, UNSPECIFIED SNOMED Code(s): 165117483 (3) Dehydration Current Visit: Yes Status: Acute Code(s): E86.0 - DEHYDRATION SNOMED Code(s): 23934478 (4) Diarrhea Current Visit: Yes Status: Acute Code(s): R19.7 - DIARRHEA, UNSPECIFIED SNOMED Code(s): 30908101 (5) Failure to thrive Current Visit: Yes Status: Acute Code(s): ZCT6295 - SNOMED Code(s): 56261433 (6) T wave inversion in EKG Current Visit: Yes Status: Acute Code(s): R94.31 - ABNORMAL ELECTR OCARDIOGRAM [ECG] [EKG] SNOMED Code(s): 27640850 (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 Current Visit: No Status: Acute Code(s): F10.24 - ALCOHOL DEPENDENCE WITH ALCOHOL-INDUCED MOOD DISORDER SNOMED Code(s): 5491367945 (8) Depression Current Visit: No Status: Acute Code(s): F32.A - DEPRESSION, UNSPECIFIED SNOMED Code(s): 14852521 (9) Essential (primary) hypertension Current Visit: No Status: Acute Code(s): I10 - ESSENTIAL (PRIMARY) HYPERTENSION SNOMED Code(s): 26073193 (10) Fall Current Visit: No Status: Acute Code(s): W19.XXXA - UNSPECIFIED FALL, INITIAL ENCOUNTER SNOMED Code(s): 6316428 Plan: Patient is currently in the ICU Alcohol intoxication Dehydration Anemia Thrombocytopenia Transaminitis Chronic tobacco dependence Severe cardiomyopathy probably due to alcoholism possibly coronary artery di daniela Feng anxiety depression Retention hyperlipidemia Hypothyroidism probably secondary to alcoholism Plan: Labs and diagnostic studies reviewed Transferred to stepdown unit when bed available Haldol, Ativan used intermittently for agitation and alcohol withdrawal Continue ciwa protocol Electrolyte replacement, fluid resuscitation Replacing multivitamin thiamine Psychiatry consult was placed Continue supportive care and monitoring Time with Patient: Greater than 30
[2023-01-30] MEDS: ACETAMINOPHEN TAB 325 MG TAB PO PRN ×2 (14:55→23:59)
[2023-01-30] MEDS: HALOPERIDOL LACTATE 5 MG/ML 1 ML VIAL IM PRN (14:58)
[2023-01-30 16:05] LABS: Magnesium 1.8 mg/dL (1.6-2.3)
[2023-01-30] MEDS: HALOPERIDOL LACTATE 5 MG/ML 1 ML VIAL IVP PRN (20:45)
[2023-01-30] MEDS: ATORVASTATIN 20 MG TAB PO SCH (20:46)
[2023-01-30] MEDS: MIRTAZAPINE 15 MG TAB PO SCH (20:46)
[2023-01-31] MEDS: LORazepam 2 MG/ML INJ IV PRN ×15 (01:52→23:51)
[2023-01-31] MEDS: HALOPERIDOL LACTATE 5 MG/ML 1 ML VIAL IVP PRN (02:53)
[2023-01-31] MEDS: LEVOTHYROXINE 100 MCG TAB PO SCH (06:18)
[2023-01-31] MEDS: ASPIRIN 81 MG PO SCH (09:19)
[2023-01-31] MEDS: THIAMINE 100 MG TAB PO SCH (09:19)
[2023-01-31] MEDS: DULoxetine HCL 60 MG CAPSULE.DR PO SCH (09:19)
[2023-01-31] MEDS: SPIRONOLACTONE 25 MG TAB PO SCH (09:19)
[2023-01-31] MEDS: NICOTINE 21MG/24HR PATCH TRANSDERM SCH (09:19)
[2023-01-31] MEDS: CHOLESTYRAMINE (WITH SUGAR) 4 GM PACKET PO SCH ×4 (09:30→19:53)
[2023-01-31] MEDS: ACAMPROSATE CALCIUM 333 MG TABLET.DR PO SCH ×3 (09:30→21:35)
[2023-01-31] MEDS: busPIRone HCl 5 MG TAB PO SCH (09:31)
[2023-01-31] MEDS: SODIUM CHLORIDE 0.9% 1,000 ML IV SCH (09:32)
--- NOTE | 2023-01-31 09:33 | P.PN ---
Subjective Progress Note Date: 01/31/23 The patient is a 52-year-old male presented to the hospital with acute alcohol intoxication. Cardiology was consulted for mildly abnormal troponin level, flat trend. Echocardiogram revealed severely reduced LV function of 35% with global hypokinesis, moderate aortic regurgitation, and moderate mitral regurgitation. He was started on cardiomyopathy medications and has been monitored in the ICU during his withdrawal. The patient was interviewed and examined resting comfortably in bed. He denies any current chest pain or chest pressure. He denies any difficulty breathing. GENERAL: Ill-appearing, pale and mildly diaphoretic. NECK: Supple without JVD or thyromegaly. LUNGS: Breath sounds clear to auscultation bilaterally. Respiration equal and unlabored. No wheezes, rales or rhonchi. HEART: Regular rate and rhythm. Notably tachycardic. No murmurs, rubs or gallops. S1 and S2 heard. EXTREMITIES: Normal range of motion, no edema. No clubbing or cyanosis. Peripheral pulses intact and strong. VITALS: Blood pressure 108/65, respiratory rate 34, pulse 111, temp 99.1F, SpO2 95% on room air TELEMETRY: Sinus tachycardia IMPRESSION: Acute alcohol withdrawal Sinus tachycardia Cardiomyopathy, likely nonischemic Mitral regurgitation Aortic regurgitation Positive occult blood with anemia PLAN: Discontinue clonidine to avoid hypotension Maximize beta blockers as tolerated with cardiomyopathy Further recommendations to be based upon clinical course I am dictating on behalf of Dr Tai James's history/physical and assessment/plan. Objective - Vital Signs Vital signs: Vital Signs Temp 99.1 F 01/31/23 04:00 Pulse 111 H 01/31/23 06:00 Resp 34 H 01/31/23 06:00 BP 108/65 01/31/23 06:00 Pulse Ox 95 01/31/23 08:34 FiO2 Intake & Output 01/30/23 01/31/23 01/31/23 18:59 06:59 18:59 Intake Total 650 830 Output Total 1900 1650 Balance -1250 -820 Intake: IV 250 30 Sodium Chloride 0.9% 1, 250 30 000 ml @ 20 mls/hr IV . Q24H [facility] Rx#:[id number] Oral 400 800 Output: Urine 1900 1650 Other: Voiding Method Indwelling Catheter Indwelling Catheter - Labs CBC & Chem 7: 01/30/23 03:43 01/30/23 15:19 Labs: Microbiology - Last 24 Hours (Table) 01/27/23 10:48 Blood Culture - Preliminary Blood 01/27/23 10:48 Blood Culture - Preliminary Blood
--- NOTE | 2023-01-31 09:52 | P.PN ---
Subjective Progress Note Date: 01/31/23 This is a 52-year-old male patient with a known history of hypertension, hyperlipidemia, chronic cervical pain, anxiety/depression, chronic and ongoing tobacco dependence, chronic and ongoing heavy daily alcohol abuse. He also has been having issues with diarrhea for weeks and poor appetite. His brought him into the emergency room on 01/27/2023 for the same. His alcohol level was 445. Urine drug screen positive for marijuana. Influenza screen negative. RSV screen negative. COVID-19 screen negative. His stool for occult blood was positive. White count 8.7. Hemoglobin 8.8. MCV 102.7. Platelets 71,000. Sodium 135. Potassium 3.3. Bicarb 18. BUN 15. Creatinine 0.81. Glucose 145. Magnesium 1.2. Chest x-ray revealed chronic changes of COPD without acute pulmonary process. Computed tomography scan of the abdomen and pelvis revealed no acute abdominal/pelvic process. Hepatic steatosis. Hydropic gallbladder. Echocardiogram reveals severe left ventricular systolic dysfunction with ejection fraction of 30-35%. Severe global hypokinesia. Moderate mitral and aortic regurgitation. The skin on his buttocks is extremely excoriated. He initially required Precedex while in the emergency room. That has since been weaned off. He is seen today in consultation in the ICU. He is arousable but drifts off. He has been requiring Haldol and Ativan. Maintaining good O2 satu rations in the mid to upper 90s on room air. He's been afebrile. He is tachycardic. Blood pressure stable. The patient is seen today 01/30/2023 in follow-up in the intensive care unit. He is currently resting comfortably in bed. Awake and alert. Maintaining good O2 saturations in the 90s on room air. He's been afebrile. Still somewhat tachycardic. Blood pressure stable. Blood cultures reveal no growth. White count 8.0. Hemoglobin 7.9. MCV 103.4. Platelet count 86,000. Sodium 132. Potassium 3.7. Bicarb 20. BUN 9. Creatinine 0.69. Glucose 105. C. difficile screen was negative. He remains in the CIWA protocol. NicoDerm patches in place. He remains on normal saline at 150 MLS per hour. He is tolerating a diet. 01/31/2023, the patient is communicating and is awake and alert. He is aware that is in the hospital. He remains quite shaky. No hallucinations. He is on room air oxygen. Hemodynamically, stable, still has some mild sinus tachycardia. IV fluids are currently at KVO. Meanwhile, he was given oral diet. We have not witnessed any GI bleeding. Hemoglobin has dropped onto 7.9 and the patient's cognition profile was within normal limits. He has chronic Soma cytopenia. He had positive occult blood. CAT scan of the abdomen that was done on 01/27/2023 showed hepatic steatosis, no acute intra-abdominal process, hydropic gallbladder. LFTs were consistent with alcoholic hepatitis with elevated AST and ALT. The patient was having diarrhea. Stool for C. diff has been negative. 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 He drinks vodka and he was acutely alcohol intoxicated at time of admission and immediately went into delirium tremens. Currently is off Precedex. No reported aspiration. It is on room air oxygen. His chest x-ray from time of admission showed no acute abno rmalities. Objective - Vital Signs Vital signs: Vital Signs Temp 99.1 F 01/31/23 04:00 Pulse 111 H 01/31/23 06:00 Resp 34 H 01/31/23 06:00 BP 108/65 01/31/23 06:00 Pulse Ox 95 01/31/23 08:34 FiO2 Intake & Output 01/30/23 01/31/23 01/31/23 18:59 06:59 18:59 Intake Total 650 830 Output Total 1900 1650 Balance -1250 -820 Intake: IV 250 30 Sodium Chloride 0.9% 1, 250 30 000 ml @ 20 mls/hr IV . Q24H [facility] Rx#:[id number] Oral 400 800 Output: Urine 1900 1650 Other: Voiding Method Indwelling Catheter Indwelling Catheter - Exam GENERAL EXAM: Awake, alert, 52-year-old male, on room air, iin no apparent distress. HEAD: Normocephalic. EYES: Normal reaction of pupils, equal size. NOSE: Clear with pink turbinates. THROAT: No erythema or exudates. NECK: No masses, no JVD. CHEST: No chest wall deformity. LUNGS: Equal air entry with no crackles, wheeze, rhonchi or dullness. CVS: S1 and S2 normal with no audible murmur, regular rhythm. ABDOMEN: No hepatosplenomegaly, normal bowel sounds, no guarding or rigidity. SPINE: No scoliosis or deformity SKIN: Excoriated buttocks CENTRAL NERVOUS SYSTEM: No focal deficits, tone is normal in all 4 extremities. EXTREMITIES: There is no peripheral edema. No clubbing, no cyanosis. Peripheral pulses are intact. - Labs CBC & Chem 7: 01/30/23 03:43 01/30/23 15:19 Labs: Microbiology - Last 24 Hours (Table) 01/27/23 10:48 Blood Culture - Preliminary Blood 01/27/23 10:48 Blood Culture - Preliminary Blood Assessment and Plan Plan: Acute alcohol withdrawal syndrome presenting serum alcohol level 445, recovered Delirium tremens, recovered for the most part. The patient is much more comfortable, does have some residual tremors. Currently is off Precedex. He is still requiring Ativan control asbestos. Urine drug screen positive for marijuana Acute diarrhea, improving. Stool for C. diff has been negative. Failure to thrive with poor appetite and weeks of diarrhea, stool for occult blood positive Excoriated buttocks secondary to diarrhea Acute on chronic Anemia, rule out possibility of an upper GI bleed. No evidence of any portal hypertension with esophageal varices or portal gastropathy based on the CAT scan of the abdomen Thrombocytopenia, alcohol induced Transaminitis, alcoholic liver disease Chronic and ongoing tobacco dependence Severe cardiomyopathy suspect secondary to alcoholism, possible coronary artery disease, ejection fraction 30-35% History of anxiety/depression Hypertension Hyperlipidemia Hypothyroidism Plan: Continue Ativan for now, in combination with Haldol for agitation Continue the CIWA protocol IV fluids to KVO Advance diet No plans for endoscopy at this time Discontinue the aspirin. Discontinue the Tylenol. Continue mirtazapine, and Cymbalta and BuSpar. Transfer to the selective care unit with telemetry We will continue to follow
--- NOTE | 2023-01-31 12:07 | P.PN ---
Subjective Progress Note Date: 01/31/23 01/28/23 Chief Complaint: Alcohol intoxication failure to thrive This is a 52-year-old male only seen in my office one time was unable to stay for the complete visit in left known history of alcoholism and his asked me what she needed to do that he been not gotten out of bed and 3 days he was developing bedsores and he has been continuing to drink alcohol during this time and has maintained significant levels of intoxication apparently for the last several years. I was asked what she needed to do I told her she needed to take him to the hospital same on petition to be admitted to the mental health unit he will probably have to be medically cleared and that is exactly what transpired. This patient was started on a Ciwa, protocol in the emergency room after being evaluated by psychiatry, patient is requiring medical clearance for admission to the mental health unit. At time of admission patient's alcohol level was 400, patient maxed out his Ativan requirements on the C iwwa protocol, he was started on a Precedex drip, of which he was having breakthrough agitation, this case was discussed with Dr. Llanos critical care medicine, he agreed for the patient to be admitted to the intensive care unit 01/30/2023 Patient is awake alert and much less agitated, still on ciwa protocol diarrhea has improved. 01/31/2023 selective overflow. Maintained on CIWA protocol, positive tremors. Current CIWA score 6. Telemetry sinus tachycardia. EF 30-35%. Hemoglobin decreased to 7.9, no bleeding reported. Maintaining O2 sats in the 90s on room air. Denies chest pain, palpitations or shortness of breath. Objective - Vital Signs Vital signs: Vital Signs Temp 98.7 F 01/31/23 08:00 Pulse 123 H 01/31/23 09:00 Resp 18 01/31/23 09:00 BP 138/72 01/31/23 09:00 Pulse Ox 95 01/31/23 08:34 FiO2 Intake & Output 01/30/23 01/31/23 01/31/23 18:59 06:59 18:59 Intake Total 650 830 310 Output Total 1900 1650 280 Balance -1250 -820 30 Intake: IV 250 30 10 Sodium Chloride 0.9% 1, 250 30 10 000 ml @ 20 mls/hr IV . Q24H [facility] Rx#:[id number] Oral 400 800 300 Output: Urine 1900 1650 280 Other: Voiding Method Indwelling Catheter Indwelling Catheter Indwelling Catheter - Exam - Exam General: Alert, Sitting up in bed, no acute distress.] HEENT: [PERRL. EOMI. No pharyngeal erythema or exudate.] Neck: Supple, no JVD Cardiac: [Heart regular in rate and rhythm. No S3. No S4. No clicks, rubs. No murmur.] Lungs: [Clear to auscultation bilaterally.] Abdomen: [No mass. No organomegaly. Bowel sounds presnt and normoactive in all 4 quadrants.] Buttocks excoriated perineal area excoriated Extremes: [No edema no cyanosis no claudication normal pulses. Skin: [No rash.] Neurologic: [No lateralizing deficits. CN II - XII grossly intact.] Microbiology 01/27/23 10:48 Blood Blood Culture - Preliminary 01/27/23 10:48 Blood Blood Culture - Preliminary - Labs CBC & Chem 7: 01/30/23 03:43 01/30/23 15:19 Labs: Microbiology - Last 24 Hours (Table) 01/27/23 10:48 Blood Culture - Preliminary Blood 01/27/23 10:48 Blood Culture - Preliminary Blood Assessment and Plan Assessment: Assessment and Plan (1) Alcohol intoxication Current Visit: Yes Status: Acute Code(s): F10.929 - ALCOHOL USE, UNSPECIFIED WITH INTOXICATION, UNSPECIFIED SNOMED Code(s): 28831776 (2) Alcohol withdrawal Current Visit: Yes Status: Acute Code(s): F10.939 - ALCOHOL USE, UNSPECIFIED WITH WITHDRAWAL, UNSPECIFIED SNOMED Code(s): 052423415 (3) Dehydration Current Visit: Yes Status: Acute Code(s): E86.0 - DEHYDRATION SNOMED Code(s): 34613278 (4) Diarrhea Current Visit: Yes Status: Acute Code(s): R19.7 - DIARRHEA, UNSPECIFIED SNOMED Code(s): 72186878 (5) Failure to thrive Current Visit: Yes Status: Acute Code(s): DNZ3340 - SNOMED Code(s): 90225015 (6) T wave inversion in EKG Current Visit: Yes Status: Acute Code(s): R94.31 - ABNORMAL ELECTROCARDIOGRAM [ECG] [EKG] SNOMED Code(s): 81491368 (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 Selective care overflow .CIWA protocol.close monitoring of hgb. with repeat labs ordered for am. The impression and plan of care has been dictated as directed. : I performed a history and examination of this patient, discussed the same with the dictator. I agree with the dictator's note ,documented as a scribe. Any additional findings or plans will be noted.
--- NOTE | 2023-01-31 12:38 | P.CONS ---
History of Present Illness - Reason for Consult Consult date: 01/31/23 wound care - History of Present Illness This is a 52-year-old patient being seen in the ICU for pressure ulceration to the right buttocks. Patient has a stage II pressure ulcer to the right buttocks with multiple open ulcerated areas with minimal Slough and nonviable tissue with granulation seen. The wound does show excoriation. Patient's past medical history significant for hypertension and hyperlipidemia, patient is a everyday smoker of pack a day. Patient denies diabetes. Review Of Systems: Constitutional: No fever, no chills, no night sweats. No weight change. No weakness, fatigue or lethargy. No daytime sleepiness. Integumentary:reports wounds, no lesions. No rash or pruritus. No unusual bruising. No change in hair or nails. Physical exam: General Appearance: Alert, cooperative, no distress, appears stated age. Skin: See HPI all other Skin color, texture, tugor normal, no rashes or lesions. Neurologic: Alert oriented x3 Assessment: 1. Stage II pressure ulcer right buttock 2. Stage I pressure ulcer left buttock Plan: 1. Apply triad to the site. Turn patient every 2 hours as needed. Thank you for the consultation any questions please contact the wound care center DNP note has been reviewed and discussed with Dr. Baum and the impression and plan of care has been directed as dictated. Past Medical History Past Medical History: Hyperlipidemia, Hypertension Additional Past Medical History / Comment(s): Chronic cervical pain. Alcoholism History of Any Multi-Drug Resistant Organisms: None Reported Past Surgical History: Hernia Repair Additional Past Surgical History / Comment(s): R inguinal hernia repair, deviated septum sx, colonoscopy x 2. Past Anesthesia/Blood Transfusion Reactions: No Reported Reaction Past Psychological History: Anxiety, Depression Smoking Status: Current every day smoker Past Alcohol Use History: Abuse, Daily, Heavy Past Drug Use History: None Reported - Past Family History Mother Family Medical History: No Reported History Additional Family Medical History / Comment(s): Mother April 2022 of covid. Father Family Medical History: No Reported History Additional Family Medical History / Comment(s): Father from an accident. Medications and Allergies Home Medications Medication Instructions Recorded Confirmed Type Thiamine [Vitamin B-1] 100 mg PO DAILY #30 cap 09/01/22 01/27/23 Rx Atorvastatin [Lipitor] 20 mg PO HS 12/02/22 01/27/23 History DULoxetine HCL [Cymbalta] 60 mg PO DAILY 12/02/22 01/27/23 History Loratadine 10 mg PO DAILY 12/02/22 01/27/23 History Naproxen [Naprosyn] 500 mg PO BID PRN 12/02/22 01/27/23 History Olmesartan Medoxomil 40 mg PO DAILY 12/02/22 01/27/23 History buPROPion SR [Wellbutrin SR] 150 mg PO DAILY 12/02/22 01/27/23 History busPIRone HCL 15 mg PO DAILY 12/02/22 01/27/23 History cloNIDine HCL [Catapres] 0.1 mg PO BID 12/02/22 01/27/23 History Levothyroxine Sodium 100 mcg PO DAILY 01/27/23 01/27/23 History Mirtazapine 15 mg PO HS 01/27/23 01/27/23 History Allergies Allergy/AdvReac Type Severity Reaction Status Date / Time No Known Allergies Allergy Verified 01/27/23 12:04 Physical Exam Vitals: Vital Signs Temp Pulse Resp BP Pulse Ox 01/31/23 09:00 123 H 18 138/72 01/31/23 08:34 95 01/31/23 08:00 98.7 F 116 H 16 108/65 01/31/23 07:00 110 H 18 108/65 01/31/23 06:00 111 H 34 H 108/65 01/31/23 05:00 12 108/65 01/31/23 04:00 99.1 F 118 H 33 H 105/70 96 01/31/23 03:00 112 H 12 105/70 01/31/23 02:00 108 H 19 96/73 01/31/23 01:00 114 H 13 96/73 01/31/23 00:00 100.2 F H 115 H 48 H 109/59 01/30/23 23:00 116 H 38 H 109/59 01/30/23 22:00 109/59 01/30/23 21:00 110 H 31 H 109/59 01/30/23 20:00 100.2 F H 107 H 11 L 95/49 01/30/23 19:00 118 H 36 H 95/49 93 L 01/30/23 18:00 110 H 32 H 95/49 01/30/23 17:00 108 H 31 H 95/49 01/30/23 16:00 99.1 F 109 H 33 H 99/62 91 L 01/30/23 15:00 113 H 40 H 99/62 93 L 01/30/23 14:00 117 H 31 H 97/48 95 01/30/23 13:00 112 H 22 101/56 93 L Intake and Output 01/30/23 01/31/23 01/31/23 22:59 06:59 14:59 Intake Total 530 320 310 Output Total 1450 900 280 Balance -920 -580 30 Intake: IV 30 20 10 Sodium Chloride 0.9% 1, 30 20 10 000 ml @ 20 mls/hr IV . Q24H [facility] Rx#:[id number] Oral 500 300 300 Output: Urine 1450 900 280 Other: Voiding Method Indwelling Catheter Indwelling Catheter Indwelling Catheter Results CBC & Chem 7: 01/30/23 03:43 01/30/23 15:19 Labs: Microbiology - Last 24 Hours (Table) 01/27/23 10:48 Blood Culture - Preliminary Blood 01/27/23 10:48 Blood Culture - Preliminary Blood
[2023-01-31 13:01] LABS: HCT 24.1 % (39.0-53.0); HGB 7.8 gm/dL (13.0-17.5); Hypochromasia Slight; MCH 34.6 pg (25.0-35.0); MCHC 32.3 g/dL (31.0-37.0); Macrocytosis Moderate; Mean Platelet Volume 11.3; RBC 2.25 m/uL (4.30-5.90); RDW 14.7 % (11.5-15.5); WBC 6.7 k/uL (3.8-10.6)
[2023-01-31 13:11] LABS: Platelet Count 146 k/uL (150-450)
[2023-01-31] MEDS ORDERED: MAGNESIUM SULFATE-D5W PMX 1 GM in DEXTROSE/WATER 1 100ML.BAG IVPB ONE (13:19)
[2023-01-31 13:25] LABS: ALT 51 U/L (4-49); AST 44 U/L (17-59); African American GFR (CKD) >90 (>60 ml/min/1.73 sqM); Albumin 2.5 g/dL (3.5-5.0); Alkaline Phosphatase 162 U/L (38-126); Anion Gap 7 mmol/L; Blood Urea Nitrogen 9 mg/dL (9-20); Calcium 7.9 mg/dL (8.4-10.2); Carbon Dioxide 19 mmol/L (22-30); Chloride 106 mmol/L (98-107); Glucose 91 mg/dL (74-99); Non-African American GFR(CKD) >90 (>60 ml/min/1.73 sqM); Potassium 4.1 mmol/L (3.5-5.1); Sodium 132 mmol/L (137-145); Total Bilirubin 0.5 mg/dL (0.2-1.3)
[2023-01-31] MEDS: HYDROPHILIC CREAM 180 GM TUBE TOPICAL SCH (13:56)
[2023-01-31] MEDS: METOPROLOL SUCCINATE (ER) 25 MG TAB.ER.24H PO SCH (19:53)
[2023-01-31] MEDS: ATORVASTATIN 20 MG TAB PO SCH (19:53)
[2023-01-31] MEDS: MIRTAZAPINE 15 MG TAB PO SCH (19:54)
[2023-02-01] MEDS: HALOPERIDOL LACTATE 5 MG/ML 1 ML VIAL IVP PRN ×2 (00:41→10:25)
[2023-02-01] MEDS: LORazepam 2 MG/ML INJ IV PRN ×6 (01:13→20:56)
[2023-02-01] MEDS: DEXMEDETOMIDINE/0.9% NACL(PMX) 400 MCG in EMPTY BAG 1 BAG IV SCH ×2 (05:10→14:07)
[2023-02-01 06:06] LABS: African American GFR (CKD) >90 (>60 ml/min/1.73 sqM); Anion Gap 11 mmol/L; Blood Urea Nitrogen 10 mg/dL (9-20); Calcium 8.1 mg/dL (8.4-10.2); Carbon Dioxide 16 mmol/L (22-30); Chloride 104 mmol/L (98-107); Glucose 87 mg/dL (74-99); Non-African American GFR(CKD) >90 (>60 ml/min/1.73 sqM); Potassium 4.1 mmol/L (3.5-5.1); Sodium 131 mmol/L (137-145)
[2023-02-01] MEDS: LEVOTHYROXINE 100 MCG TAB PO SCH (06:12)
[2023-02-01 06:35] LABS: Basophils % (A) 0 %; Eosinophils # (A) 0.1 k/uL (0-0.7); Eosinophils % (A) 2 %; HCT 23.6 % (39.0-53.0); HGB 7.6 gm/dL (13.0-17.5); Lymphocytes # (A) 1.7 k/uL (1.0-4.8); Lymphocytes % (A) 28 %; MCH 33.7 pg (25.0-35.0); MCHC 32.4 g/dL (31.0-37.0); MCV 103.9 fL (80.0-100.0); Macrocytosis Slight; Mean Platelet Volume 9.6; Monocytes % (A) 16 %; Neutrophils # (A) 3.2 k/uL (1.3-7.7); Neutrophils % (A) 52 %; Platelet Count 214 k/uL (150-450); RBC 2.27 m/uL (4.30-5.90); RDW 14.5 % (11.5-15.5); WBC 6.2 k/uL (3.8-10.6)
--- NOTE | 2023-02-01 07:01 | XR ---
EXAMINATION TYPE: XR chest 1V portable DATE OF EXAM: 02/01/2023 Comparison: 01/27/2023 Clinical History: 52-year-old male increased shortness of breath Findings: Heart mildly enlarged. Perihilar and diffuse interstitial densities as well as hazy bilateral opaciti es. Mild patchy right basilar opacity. No pleural effusion. Impression: 1. Cardiomegaly with diffuse interstitial changes. Correlate for CHF with pulmonary vascular congesti on. 2. Patchy perihilar and right basilar interstitial edema versus infiltrates.
[2023-02-01] MEDS: CHOLESTYRAMINE (WITH SUGAR) 4 GM PACKET PO SCH ×4 (07:04→20:09)
[2023-02-01] MEDS: MAGNESIUM SULFATE-D5W PMX 1 GM in DEXTROSE/WATER 1 100ML.BAG IVPB SCH ×2 (07:06→09:17)
--- NOTE | 2023-02-01 09:05 | P.PN ---
Subjective Progress Note Date: 02/01/23 The patient is a 52-year-old male presented to the hospital with acute alcohol intoxication. Cardiology was consulted for mildly abnormal troponin level, flat trend. Echocardiogram revealed severely reduced LV function of 35% with global hypokinesis, moderate aortic regurgitation, and moderate mitral regurgitation. He was started on cardiomyopathy medications and has been monitored in the ICU during his withdrawal. The patient was interviewed and examined resting comfortably in bed. He is currently sedated on Precedex GENERAL: Ill-appearing, pale. NECK: Supple without JVD or thyromegaly. LUNGS: Breath sounds clear to auscultation bilaterally. Respiration equal and unlabored. No wheezes, rales or rhonchi. HEART: Regular rate and rhythm. No murmurs, rubs or gallops. S1 and S2 heard. EXTREMITIES: Normal range of motion, no edema. No clubbing or cyanosis. Peripheral pulses intact and strong. VITALS: Blood pressure 122/80, respiratory rate 28, pulse 97, temp 98.5F, SpO2 97% on room air TELEMETRY: Sinus rhythm overnight with heart rates in the high 80s/low 90's IMPRESSION: Acute alcohol withdrawal Sinus tachycardia Cardiomyopathy, likely nonischemic Mitral regurgitation Aortic regurgitation Positive occult blood with anemia PLAN: Maximize beta blockers as tolerated with cardiomyopathy Coronary angiogram once stable from withdrawals Further recommendations to be based upon clinical course I am dictating on behalf of Dr Tai James's history/physical and assessment/plan. Objective - Vital Signs Vital signs: Vital Signs Temp 98.5 F 02/01/23 04:00 Pulse 97 02/01/23 07:00 Resp 28 H 02/01/23 07:00 BP 122/80 02/01/23 07:00 Pulse Ox 97 02/01/23 07:00 FiO2 Intake & Output 01/31/23 02/01/23 02/01/23 18:59 06:59 18:59 Intake Total 670 454.037 29.379 Output Total 930 990 75 Balance -260 -535.963 -45.621 Intake: IV 120 200 20 Sodium Chloride 0.9% 1, 120 200 20 000 ml @ 20 mls/hr IV . Q24H [facility] Rx#:[id number] Intake, IV Titration 4.037 9.379 Amount Dexmedetomidine/0.9% NaCl 4.037 9.379 (Pmx) 400 mcg In Empty Bag 1 bag @ 0.2 MCG/KG/HR 3.815 mls/hr IV .Q24H [facility] Rx#:[id number] Oral 550 250 Output: Urine 930 990 75 Other: Voiding Method Indwelling Catheter Indwelling Catheter - Labs CBC & Chem 7: 02/01/23 04:33 02/01/23 04:33 Labs: Abnormal Lab Results - Last 24 Hours (Table) 01/31/23 01/31/23 02/01/23 Range/Units 05:16 05:16 04:33 RBC 2.25 L 2.27 L (4.30-5.90) m/uL Hgb 7.8 L 7.6 L (13.0-17.5) gm/dL Hct 24.1 L 23.6 L (39.0-53.0) % MCV 107.0 H 103.9 H (80.0-100.0) fL Plt Count 146 L D (150-450) k/uL Sodium 132 L (137-145) mmol/L Carbon Dioxide 19 L (22-30) mmol/L Calcium 7.9 L (8.4-10.2) mg/dL ALT 51 H (4-49) U/L Alkaline Phosphatase 162 H (38-126) U/L Total Protein 5.0 L (6.3-8.2) g/dL Albumin 2.5 L (3.5-5.0) g/dL 02/01/23 Range/Units 04:33 RBC (4.30-5.90) m/uL Hgb (13.0-17.5) gm/dL Hct (39.0-53.0) % MCV (80.0-100.0) fL Plt Count (150-450) k/uL Sodium 131 L (137-145) mmol/L Carbon Dioxide 16 L (22-30) mmol/L Calcium 8.1 L (8.4-10.2) mg/dL ALT (4-49) U/L Alkaline Phosphatase (38-126) U/L Total Protein (6.3-8.2) g/dL Albumin (3.5-5.0) g/dL
[2023-02-01] MEDS: THIAMINE 100 MG TAB PO SCH (09:16)
[2023-02-01] MEDS: DULoxetine HCL 60 MG CAPSULE.DR PO SCH (09:16)
[2023-02-01] MEDS: SPIRONOLACTONE 25 MG TAB PO SCH (09:16)
[2023-02-01] MEDS: NICOTINE 21MG/24HR PATCH TRANSDERM SCH (09:17)
[2023-02-01] MEDS: ACAMPROSATE CALCIUM 333 MG TABLET.DR PO SCH ×4 (09:18→21:08)
[2023-02-01] MEDS: busPIRone HCl 5 MG TAB PO SCH (09:18)
[2023-02-01] MEDS: HYDROPHILIC CREAM 180 GM TUBE TOPICAL SCH (09:19)
--- NOTE | 2023-02-01 09:23 | P.PN ---
Subjective Progress Note Date: 02/01/23 This is a 52-year-old male patient with a known history of hypertension, hyperlipidemia, chronic cervical pain, anxiety/depression, chronic and ongoing tobacco dependence, chronic and ongoing heavy daily alcohol abuse. He also has been having issues with diarrhea for weeks and poor appetite. His brought him into the emergency room on 01/27/2023 for the same. His alcohol level was 445. Urine drug screen positive for marijuana. Influenza screen negative. RSV screen negative. COVID-19 screen negative. His stool for occult blood was positive. White count 8.7. Hemoglobin 8.8. MCV 102.7. Platelets 71,000. Sodium 135. Potassium 3.3. Bicarb 18. BUN 15. Creatinine 0.81. Glucose 145. Magnesium 1.2. Chest x-ray revealed chronic changes of COPD without acute pulmonary process. Computed tomography scan of the abdomen and pelvis revealed no acute abdominal/pelvic process. Hepatic steatosis. Hydropic gallbladder. Echocardiogram reveals severe left ventricular systolic dysfunction with ejection fraction of 30-35%. Severe global hypokinesia. Moderate mitral and aortic regurgitation. The skin on his buttocks is extremely excoriated. He initially required Precedex while in the emergency room. That has since been weaned off. He is seen today in consultation in the ICU. He is arousable but drifts off. He has been requiring Haldol and Ativan. Maintaining good O2 satu rations in the mid to upper 90s on room air. He's been afebrile. He is tachycardic. Blood pressure stable. The patient is seen today 01/30/2023 in follow-up in the intensive care unit. He is currently resting comfortably in bed. Awake and alert. Maintaining good O2 saturations in the 90s on room air. He's been afebrile. Still somewhat tachycardic. Blood pressure stable. Blood cultures reveal no growth. White count 8.0. Hemoglobin 7.9. MCV 103.4. Platelet count 86,000. Sodium 132. Potassium 3.7. Bicarb 20. BUN 9. Creatinine 0.69. Glucose 105. C. difficile screen was negative. He remains in the CIWA protocol. NicoDerm patches in place. He remains on normal saline at 150 MLS per hour. He is tolerating a diet. 01/31/2023, the patient is communicating and is awake and alert. He is aware that is in the hospital. He remains quite shaky. No hallucinations. He is on room air oxygen. Hemodynamically, stable, still has some mild sinus tachycardia. IV fluids are currently at KVO. Meanwhile, he was given oral diet. We have not witnessed any GI bleeding. Hemoglobin has dropped onto 7.9 and the patient's cognition profile was within normal limits. He has chronic Soma cytopenia. He had positive occult blood. CAT scan of the abdomen that was done on 01/27/2023 showed hepatic steatosis, no acute intra-abdominal process, hydropic gallbladder. LFTs were consistent with alcoholic hepatitis with elevated AST and ALT. The patient was having diarrhea. Stool for C. diff has been negative. 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 He drinks vodka and he was acutely alcohol intoxicated at time of admission and immediately went into delirium tremens. Currently is off Precedex. No reported aspiration. It is on room air oxygen. His chest x-ray from time of admission showed no acute abno rmalities. 02/01/2023, the patient is in the intensive care unit for complications of alcohol withdrawal with, delirium tremens. Overnight, the patient became progressively more agitated. He restarted back on Precedex which is running at 0.4 mcg/kg/h. CBC more comfortable on this morning's evaluation. Ativan was also given, a total of 8 mg overnight. He is awake. She continues to be quite shaky. He is communicating. Obviously he does have an underlying encephalopathy from alcohol withdrawals. He is on room air oxygen. Pulse ox 93%. Hemodynamically stable. Cardiac rhythm is sinus and without any sinus tachycardia. In terms of his labs, WBC count is at 6.2 with a hemoglobin of 7.6 which is essentially stable. Platelet counts are improved and it's up to 214. BUN is at 10 with a creatinine of 0.8 and the sodium levels of 131. The liver function tests were noted from yesterday, none for today. He was provided diet and he is eating with close supervision. He is on BuSpar 50 mg along with Remeron 50 mg at bedtime and Cymbalta 60 mg by mouth daily. IV fluids are in the form of KVO. He is on thiamine also. Objective - Vital Signs Vital signs: Vital Signs Temp 98.5 F 02/01/23 04:00 Pulse 97 02/01/23 07:00 Resp 28 H 02/01/23 07:00 BP 122/80 02/01/23 07:00 Pulse Ox 97 02/01/23 07:00 FiO2 Intake & Output 01/31/23 02/01/23 02/01/23 18:59 06:59 18:59 Intake Total 670 454.037 29.379 Output Total 930 990 75 Balance -260 -535.963 -45.621 Intake: IV 120 200 20 Sodium Chloride 0.9% 1, 120 200 20 000 ml @ 20 mls/hr IV . Q24H [facility] Rx#:[id number] Intake, IV Titration 4.037 9.379 Amount Dexmedetomidine/0.9% NaCl 4.037 9.379 (Pmx) 400 mcg In Empty Bag 1 bag @ 0.2 MCG/KG/HR 3.815 mls/hr IV .Q24H [facility] Rx#:[id number] Oral 550 250 Output: Urine 930 990 75 Other: Voiding Method Indwelling Catheter Indwelling Catheter - Exam GENERAL EXAM: Awake, alert, 52-year-old male, on room air, iin no apparent distress. HEAD: Normocephalic. EYES: Normal reaction of pupils, equal size. NOSE: Clear with pink turbinates. THROAT: No erythema or exudates. NECK: No masses, no JVD. CHEST: No chest wall deformity. LUNGS: Equal air entry with no crackles, wheeze, rhonchi or dullness. CVS: S1 and S2 normal with no audible murmur, regular rhythm. ABDOMEN: No hepatosplenomegaly, normal bowel sounds, no guarding or rigidity. SPINE: No scoliosis or deformity SKIN: Excoriated buttocks CENTRAL NERVOUS SYSTEM: No focal deficits, tone is normal in all 4 extremities. EXTREMITIES: There is no peripheral edema. No clubbing, no cyanosis. Peripheral pulses are intact. - Labs CBC & Chem 7: 02/01/23 04:33 02/01/23 04:33 Labs: Abnormal Lab Results - Last 24 Hours (Table) 01/31/23 01/31/23 02/01/23 Range/Units 05:16 05:16 04:33 RBC 2.25 L 2.27 L (4.30-5.90) m/uL Hgb 7.8 L 7.6 L (13.0-17.5) gm/dL Hct 24.1 L 23.6 L (39.0-53.0) % MCV 107.0 H 103.9 H (80.0-100.0) fL Plt Count 146 L D (150-450) k/uL Sodium 132 L (137-145) mmol/L Carbon Dioxide 19 L (22-30) mmol/L Calcium 7.9 L (8.4-10.2) mg/dL ALT 51 H (4-49) U/L Alkaline Phosphatase 162 H (38-126) U/L Total Protein 5.0 L (6.3-8.2) g/dL Albumin 2.5 L (3.5-5.0) g/dL 02/01/23 Range/Units 04:33 RBC (4.30-5.90) m/uL Hgb (13.0-17.5) gm/dL Hct (39.0-53.0) % MCV (80.0-100.0) fL Plt Count (150-450) k/uL Sodium 131 L (137-145) mmol/L Carbon Dioxide 16 L (22-30) mmol/L Calcium 8.1 L (8.4-10.2) mg/dL ALT (4-49) U/L Alkaline Phosphatase (38-126) U/L Total Protein (6.3-8.2) g/dL Albumin (3.5-5.0) g/dL Assessment and Plan Plan: Acute alcohol withdrawal syndrome presenting serum alcohol level 445, , still having active symptoms of delirium tremens and the patient remains on Precedex Delirium tremens, recurrent symptoms overnight and the patient is on Precedex and Ativan in addition to a combination of Cymbalta and Remeron and BuSpar. Urine drug screen positive for marijuana Acute diarrhea, improving. Stool for C. diff has been negative. Failure to thrive with poor appetite and weeks of diarrhea, stool for occult blood positive Excoriated buttocks secondary to diarrhea Acute on chronic Anemia, rule out possibility of an upper GI bleed. No evidence of any portal hypertension with esophageal varices or portal gastropathy based on the CAT scan of the abdomen Thrombocytopenia, alcohol induced Transaminitis, alcoholic liver disease Chronic and ongoing tobacco dependence Severe cardiomyopathy suspect secondary to alcoholism, possible coronary artery disease, ejection fraction 30-35% History of anxiety/depression Hypertension Hyperlipidemia Hypothyroidism Plan: Keep the Precedex and titrate for agitation or restlessness Continue Ativan for now, in combination with Haldol for agitation Continue the CIWA protocol IV fluids to KVO Advance diet No plans for endoscopy at this time Discontinue the aspirin. It at [place] improved and the patient has no signs of any GI bleed and hemoglobin is stable at 7.6. Discontinue the Tylenol. Continue mirtazapine, and Cymbalta and BuSpar. Transfer to the selective care unit with telemetry We will continue to follow
[2023-02-01] MEDS: SODIUM CHLORIDE 0.9% 1,000 ML IV SCH (10:27)
--- NOTE | 2023-02-01 12:09 | P.PN ---
Subjective Progress Note Date: 02/01/23 01/28/23 Chief Complaint: Alcohol intoxication failure to thrive This is a 52-year-old male only seen in my office one time was unable to stay for the complete visit in left known history of alcoholism and his asked me what she needed to do that he been not gotten out of bed and 3 days he was developing bedsores and he has been continuing to drink alcohol during this time and has maintained significant levels of intoxication apparently for the last several years. I was asked what she needed to do I told her she needed to take him to the hospital same on petition to be admitted to the mental health unit he will probably have to be medically cleared and that is exactly what transpired. This patient was started on a Ciwa, protocol in the emergency room after being evaluated by psychiatry, patient is requiring medical clearance for admission to the mental health unit. At time of admission patient's alcohol level was 400, patient maxed out his Ativan requirements on the C iwwa protocol, he was started on a Precedex drip, of which he was having breakthrough agitation, this case was discussed with Dr. Llanos critical care medicine, he agreed for the patient to be admitted to the intensive care unit 01/30/2023 Patient is awake alert and much less agitated, still on ciwa protocol diarrhea has improved. 01/31/2023 selective overflow. Maintained on CIWA protocol, positive tremors. Current CIWA score 6. Telemetry sinus tachycardia. EF 30-35%. Hemoglobin decreased to 7.9, no bleeding reported. Maintaining O2 sats in the 90s on room air. Denies chest pain, palpitations or shortness of breath. 02/01/2023 positive DT's, progressed overnight, became increasingly agitated. Received 8 mg of Ativan overnight.Precedex resumed. Denies chest pain, palpitations or shortness of breath. Maintaining O2 sats in the 90s on room air. Tachycardia resolved, telemetry sinus. Hemoglobin 10.6, platelets 214. Renal function stable. Potassium 4.1, magnesium 1.6 Objective - Vital Signs Vital signs: Vital Signs Temp 98.5 F 02/01/23 04:00 Pulse 77 02/01/23 11:00 Resp 20 02/01/23 11:00 BP 116/75 02/01/23 11:00 Pulse Ox 96 02/01/23 11:00 FiO2 Intake & Output 01/31/23 02/01/23 02/01/23 18:59 06:59 18:59 Intake Total 670 454.037 129.379 Output Total 930 990 725 Balance -260 -535.963 -595.621 Intake: IV 120 200 100 Sodium Chloride 0.9% 1, 120 200 100 000 ml @ 20 mls/hr IV . Q24H [facility] Rx#:[id number] Intake, IV Titration 4.037 9.379 Amount Dexmedetomidine/0.9% NaCl 4.037 9.379 (Pmx) 400 mcg In Empty Bag 1 bag @ 0.2 MCG/KG/HR 3.815 mls/hr IV .Q24H [facility] Rx#:[id number] Oral 550 250 20 Output: Urine 930 990 725 Other: Voiding Method Indwelling Catheter Indwelling Catheter Indwelling Catheter - Exam - Exam General: Alert, sitting up in bed, no acute distress HEENT: Normocephalic, PERRL. EOMI. No pharyngeal erythema or exudate.] Neck: Supple, no JVD Cardiac: [Heart regular in rate and rhythm. No S3. No S4. No clicks, rubs. No murmur.] Lungs: [Clear to auscultation bilaterally.] Abdomen: [No mass. No organomegaly. Positive bowel sounds] Buttocks excoriated perineal area excoriated Extremes: [No edema no cyanosis no claudication normal pulses. Skin: [No rash.] Neurologic: [No lateralizing deficits. CN II - XII grossly intact.] - Labs CBC & Chem 7: 02/01/23 04:33 02/01/23 04:33 Labs: Abnormal Lab Results - Last 24 Hours (Table) 01/31/23 01/31/23 02/01/23 Range/Units 05:16 05:16 04:33 RBC 2.25 L 2.27 L (4.30-5.90) m/uL Hgb 7.8 L 7.6 L (13.0-17.5) gm/dL Hct 24.1 L 23.6 L (39.0-53.0) % MCV 107.0 H 103.9 H (80.0-100.0) fL Plt Count 146 L D (150-450) k/uL Sodium 132 L (137-145) mmol/L Carbon Dioxide 19 L (22-30) mmol/L Calcium 7.9 L (8.4-10.2) mg/dL ALT 51 H (4-49) U/L Alkaline Phosphatase 162 H (38-126) U/L Total Protein 5.0 L (6.3-8.2) g/dL Albumin 2.5 L (3.5-5.0) g/dL 02/01/23 Range/Units 04:33 RBC (4.30-5.90) m/uL Hgb (13.0-17.5) gm/dL Hct (39.0-53.0) % MCV (80.0-100.0) fL Plt Count (150-450) k/uL Sodium 131 L (137-145) mmol/L Carbon Dioxide 16 L (22-30) mmol/L Calcium 8.1 L (8.4-10.2) mg/dL ALT (4-49) U/L Alkaline Phosphatase (38-126) U/L Total Protein (6.3-8.2) g/dL Albumin (3.5-5.0) g/dL Assessment and Plan Assessment: Assessment and Plan (1) Alcohol intoxication Current Visit: Yes Status: Acute Code(s): F10.929 - ALCOHOL USE, UNSPECIFIED WITH INTOXICATION, UNSPECIFIED SNOMED Code(s): 01335105 (2) Alcohol withdrawal Current Visit: Yes Status: Acute Code(s): F10.939 - ALCOHOL USE, UNSPECIFIED WITH WITHDRAWAL, UNSPECIFIED SNOMED Code(s): 707564426 (3) Dehydration Current Visit: Yes Status: Acute Code(s): E86.0 - DEHYDRATION SNOMED Code(s): 01776509 (4) Diarrhea Current Visit: Yes Status: Acute Code(s): R19.7 - DIARRHEA, UNSPECIFIED SNOMED Code(s): 87066714 (5) Failure to thrive Current Visit: Yes Status: Acute Code(s): ORS8688 - SNOMED Code(s): 19401476 (6) T wave inversion in EKG Current Visit: Yes Status: Acute Code(s): R94.31 - ABNORMAL ELECTROCARDIOGRAM [ECG] [EKG] SNOMED Code(s): 65926139 (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 [facility] protocol/Precedex. The impression and plan of care has been dictated as directed. : I performed a history and examination of this patient, discussed the same with the dictator. I agree with the dictator's note ,documented as a scribe. Any additional findings or plans will be noted.
[2023-02-01] MEDS: METOPROLOL SUCCINATE (ER) 25 MG TAB.ER.24H PO SCH ×3 (16:33→21:08)
[2023-02-01] MEDS: MIRTAZAPINE 15 MG TAB PO SCH (20:09)
[2023-02-01] MEDS: ATORVASTATIN 20 MG TAB PO SCH (20:09)
[2023-02-02] MEDS ORDERED: LORazepam 2 MG/ML INJ ONE (02:04)
[2023-02-02] MEDS: DEXMEDETOMIDINE/0.9% NACL(PMX) 400 MCG in EMPTY BAG 1 BAG IV SCH (05:21)
[2023-02-02 05:28] LABS: HCT 23.5 % (39.0-53.0); HGB 7.8 gm/dL (13.0-17.5); MCH 34.2 pg (25.0-35.0); MCHC 33.2 g/dL (31.0-37.0); MCV 103.1 fL (80.0-100.0); Macrocytosis Slight; Mean Platelet Volume 9.2; Platelet Count 275 k/uL (150-450); RBC 2.28 m/uL (4.30-5.90); RDW 14.4 % (11.5-15.5); WBC 7.2 k/uL (3.8-10.6)
[2023-02-02 05:34] LABS: African American GFR (CKD) >90 (>60 ml/min/1.73 sqM); Anion Gap 9 mmol/L; Blood Urea Nitrogen 12 mg/dL (9-20); Calcium 7.9 mg/dL (8.4-10.2); Carbon Dioxide 18 mmol/L (22-30); Chloride 106 mmol/L (98-107); Glucose 97 mg/dL (74-99); Magnesium 1.7 mg/dL (1.6-2.3); Non-African American GFR(CKD) >90 (>60 ml/min/1.73 sqM); Potassium 4.3 mmol/L (3.5-5.1); Sodium 133 mmol/L (137-145)
[2023-02-02] MEDS ORDERED: MAGNESIUM SULFATE-D5W PMX 1 GM in DEXTROSE/WATER 1 100ML.BAG IVPB ONE (05:55)
[2023-02-02] MEDS: CHOLESTYRAMINE (WITH SUGAR) 4 GM PACKET PO SCH ×3 (06:38→20:12)
[2023-02-02] MEDS: LEVOTHYROXINE 100 MCG TAB PO SCH (06:38)
--- NOTE | 2023-02-02 08:52 | P.PN ---
Subjective Progress Note Date: 02/02/23 The patient is a 52-year-old male presented to the hospital with acute alcohol intoxication. Cardiology was consulted for mildly abnormal troponin level, flat trend. Echocardiogram revealed severely reduced LV function of 35% with global hypokinesis, moderate aortic regurgitation, and moderate mitral regurgitation. He was started on cardiomyopathy medications and has been monitored in the ICU during his withdrawal. The patient was interviewed and examined resting comfortably in bed. He has more alert today and responding appropriately to questions. He denies any chest pain or chest pressure. No difficulty breathing. He denies any cardiac history or any mention of having heart problems in the past. GENERAL: Ill-appearing, pale. NECK: Supple without JVD or thyromegaly. LUNGS: Breath sounds clear to auscultation bilaterally. Respiration equal and unlabored. No wheezes, rales or rhonchi. HEART: Regular rate and rhythm. No murmurs, rubs or gallops. S1 and S2 heard. EXTREMITIES: Normal range of motion, no edema. No clubbing or cyanosis. Peripheral pulses intact and strong. VITALS: Blood pressure 109/55, pulse 86, respiratory rate 20, SpO2 95% on room air LABS: WBC 7.2, hemoglobin 7.8, hematocrit 23.5, platelet 275, sodium 133, potassium 4.3, BUN 12, creatinine 0.85 TELEMETRY: Sinus rhythm overnight with heart rates in the mid 80s IMPRESSION: Acute alcohol withdrawal Sinus tachycardia Cardiomyopathy, likely nonischemic Mitral regurgitation Aortic regurgitation Positive occult blood with anemia PLAN: Maximize beta blockers as tolerated with cardiomyopathy Coronary angiogram once stable from withdrawals Further recommendations to be based upon clinical course I am dictating on behalf of Dr Tai James's history/physical and assessment/plan. Objective - Vital Signs Vital signs: Vital Signs Temp 99.3 F 02/01/23 20:00 Pulse 86 02/02/23 07:00 Resp 02/02/23 07:00 BP 109/55 02/02/23 07:00 Pulse Ox 93 L 02/02/23 07:36 FiO2 02/02/23 07:36 Intake & Output 02/01/23 02/02/23 02/02/23 18:59 06:59 18:59 Intake Total 635.378 505.195 20 Output Total 1395 640 75 Balance -759.622 -134.805 -55 Intake: IV 240 240 20 Sodium Chloride 0.9% 1, 240 240 20 000 ml @ 20 mls/hr IV . Q24H [facility] Rx#:[id number] Intake, IV Titration 355.378 25.195 Amount Dexmedetomidine/0.9% NaCl 75.378 5.195 (Pmx) 400 mcg In Empty Bag 1 bag @ 0.2 MCG/KG/HR 3.815 mls/hr IV .Q24H [facility] Rx#:[id number] Magnesium Sulfate-D5w Pmx 200 1 gm In Dextrose/Water 1 100ml.bag @ 100 mls/hr IVPB ONCE ONE Rx#: [id number] Sodium Chloride 0.9% 1, 80 20 000 ml @ 20 mls/hr IV . Q24H [facility] Rx#:[id number] Oral 40 240 Output: Urine 1395 640 75 Other: Voiding Method Indwelling Catheter Indwelling Catheter - Labs CBC & Chem 7: 02/02/23 04:17 02/02/23 04:17 Labs: Abnormal Lab Results - Last 24 Hours (Table) 02/02/23 02/02/23 Range/Units 04:17 04:17 RBC 2.28 L (4.30-5.90) m/uL Hgb 7.8 L (13.0-17.5) gm/dL Hct 23.5 L (39.0-53.0) % MCV 103.1 H (80.0-100.0) fL Sodium 133 L (137-145) mmol/L Carbon Dioxide 18 L (22-30) mmol/L Calcium 7.9 L (8.4-10.2) mg/dL Microbiology - Last 24 Hours (Table) 01/27/23 10:48 Blood Culture - Final Blood 01/27/23 10:48 Blood Culture - Final Blood
[2023-02-02] MEDS: NICOTINE 21MG/24HR PATCH TRANSDERM SCH (09:07)
[2023-02-02] MEDS: SPIRONOLACTONE 25 MG TAB PO SCH (09:07)
[2023-02-02] MEDS: DULoxetine HCL 60 MG CAPSULE.DR PO SCH (09:07)
[2023-02-02] MEDS: METOPROLOL SUCCINATE (ER) 25 MG TAB.ER.24H PO SCH ×3 (09:07→21:56)
[2023-02-02] MEDS: ACAMPROSATE CALCIUM 333 MG TABLET.DR PO SCH ×3 (09:07→20:20)
[2023-02-02] MEDS: THIAMINE 100 MG TAB PO SCH (09:07)
[2023-02-02] MEDS: busPIRone HCl 5 MG TAB PO SCH (09:08)
[2023-02-02] MEDS: HYDROPHILIC CREAM 180 GM TUBE TOPICAL SCH (09:09)
[2023-02-02] MEDS: SODIUM CHLORIDE 0.9% 1,000 ML IV SCH (09:10)
--- NOTE | 2023-02-02 10:02 | P.PN ---
Subjective Progress Note Date: 02/02/23 This is a 52-year-old male patient with a known history of hypertension, hyperlipidemia, chronic cervical pain, anxiety/depression, chronic and ongoing tobacco dependence, chronic and ongoing heavy daily alcohol abuse. He also has been having issues with diarrhea for weeks and poor appetite. His brought him into the emergency room on 01/27/2023 for the same. His alcohol level was 445. Urine drug screen positive for marijuana. Influenza screen negative. RSV screen negative. COVID-19 screen negative. His stool for occult blood was positive. White count 8.7. Hemoglobin 8.8. MCV 102.7. Platelets 71,000. Sodium 135. Potassium 3.3. Bicarb 18. BUN 15. Creatinine 0.81. Glucose 145. Magnesium 1.2. Chest x-ray revealed chronic changes of COPD without acute pulmonary process. Computed tomography scan of the abdomen and pelvis revealed no acute abdominal/pelvic process. Hepatic steatosis. Hydropic gallbladder. Echocardiogram reveals severe left ventricular systolic dysfunction with ejection fraction of 30-35%. Severe global hypokinesia. Moderate mitral and aortic regurgitation. The skin on his buttocks is extremely excoriated. He initially required Precedex while in the emergency room. That has since been weaned off. He is seen today in consultation in the ICU. He is arousable but drifts off. He has been requiring Haldol and Ativan. Maintaining good O2 satu rations in the mid to upper 90s on room air. He's been afebrile. He is tachycardic. Blood pressure stable. The patient is seen today 01/30/2023 in follow-up in the intensive care unit. He is currently resting comfortably in bed. Awake and alert. Maintaining good O2 saturations in the 90s on room air. He's been afebrile. Still somewhat tachycardic. Blood pressure stable. Blood cultures reveal no growth. White count 8.0. Hemoglobin 7.9. MCV 103.4. Platelet count 86,000. Sodium 132. Potassium 3.7. Bicarb 20. BUN 9. Creatinine 0.69. Glucose 105. C. difficile screen was negative. He remains in the CIWA protocol. NicoDerm patches in place. He remains on normal saline at 150 MLS per hour. He is tolerating a diet. 01/31/2023, the patient is communicating and is awake and alert. He is aware that is in the hospital. He remains quite shaky. No hallucinations. He is on room air oxygen. Hemodynamically, stable, still has some mild sinus tachycardia. IV fluids are currently at KVO. Meanwhile, he was given oral diet. We have not witnessed any GI bleeding. Hemoglobin has dropped onto 7.9 and the patient's cognition profile was within normal limits. He has chronic pancytopenia. He had positive occult blood. CAT scan of the abdomen that was done on 01/27/2023 showed hepatic steatosis, no acute intra-abdominal process, hydropic gallbladder. LFTs were consistent with alcoholic hepatitis with elevated AST and ALT. The patient was having diarrhea. Stool for C. diff has been negative. 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 He drinks vodka and he was acutely alcohol intoxicated at time of admission and immediately went into delirium tremens. Currently is off Precedex. No reported aspiration. It is on room air oxygen. His chest x-ray from time of admission showed no acute abnorm alities. 02/01/2023, the patient is in the intensive care unit for complications of alcohol withdrawal with, delirium tremens. Overnight, the patient became progressively more agitated. He restarted back on Precedex which is running at 0.4 mcg/kg/h. CBC more comfortable on this morning's evaluation. Ativan was also given, a total of 8 mg overnight. He is awake. She continues to be quite shaky. He is communicating. Obviously he does have an underlying encephalopathy from alcohol withdrawals. He is on room air oxygen. Pulse ox 93%. Hemodynamically stable. Cardiac rhythm is sinus and without any sinus tachycardia. In terms of his labs, WBC count is at 6.2 with a hemoglobin of 7.6 which is essentially stable. Platelet counts are improved and it's up to 214. BUN is at 10 with a creatinine of 0.8 and the sodium levels of 131. The liver function tests were noted from yesterday, none for today. He was provided diet and he is eating with close supervision. He is on BuSpar 50 mg along with Remeron 50 mg at bedtime and Cymbalta 60 mg by mouth daily. IV fluids are in the form of KVO. He is on thiamine also. 02/02/2023, I'm seeing the patient for a follow-up. Much improved since yesterday. Still on Precedex at a dose of 0.1 mcg/kg/h. No significant agitation. He did receive Ativan overnight a total of 2 mg was given to him. He is tolerating his diet. His IV fluids are currently at KVO. He is on thiamine. He is also on BuSpar, Remeron Cymbalta. Blood work from today shows of the mediastinal 7.2 with hemoglobin of 7.8 and a platelet count of 275. Serum bicarbs at 18 with a sodium level of 133, BUN is at 12 with a creatinine of 0.8. No other significant issues over the past 24 hours. Is currently comfortable at this point in time. Objective - Vital Signs Vital signs: Vital Signs Temp 99.6 F 02/02/23 08:00 Pulse 85 02/02/23 09:00 Resp 02/02/23 09:00 BP 107/61 02/02/23 09:00 Pulse Ox 94 L 02/02/23 09:00 FiO2 02/02/23 07:36 Intake & Output 02/01/23 02/02/23 02/02/23 18:59 06:59 18:59 Intake Total 635.378 505.195 80.189 Output Total 1395 640 255 Balance -759.622 -134.805 -174.811 Intake: IV 240 240 60 Sodium Chloride 0.9% 1, 240 240 60 000 ml @ 20 mls/hr IV . Q24H [facility] Rx#:[id number] Intake, IV Titration 355.378 25.195 20.189 Amount Dexmedetomidine/0.9% NaCl 75.378 5.195 20.189 (Pmx) 400 mcg In Empty Bag 1 bag @ 0.2 MCG/KG/HR 3.815 mls/hr IV .Q24H [facility] Rx#:[id number] Magnesium Sulfate-D5w Pmx 200 1 gm In Dextrose/Water 1 100ml.bag @ 100 mls/hr IVPB ONCE ONE Rx#: [id number] Sodium Chloride 0.9% 1, 80 20 000 ml @ 20 mls/hr IV . Q24H [facility] Rx#:[id number] Oral 40 240 Output: Urine 1395 640 255 Other: Voiding Method Indwelling Catheter Indwelling Catheter Indwelling Catheter - Exam GENERAL EXAM: Awake, alert, 52-year-old male, on room air, iin no apparent distress. HEAD: Normocephalic. EYES: Normal reaction of pupils, equal size. NOSE: Clear with pink turbinates. THROAT: No erythema or exudates. NECK: No masses, no JVD. CHEST: No chest wall deformity. LUNGS: Equal air entry with no crackles, wheeze, rhonchi or dullness. CVS: S1 and S2 normal with no audible murmur, regular rhythm. ABDOMEN: No hepatosplenomegaly, normal bowel sounds, no guarding or rigidity. SPINE: No scoliosis or deformity SKIN: Excoriated buttocks CENTRAL NERVOUS SYSTEM: No focal deficits, tone is normal in all 4 extremities. EXTREMITIES: There is no peripheral edema. No clubbing, no cyanosis. Peripheral pulses are intact. - Labs CBC & Chem 7: 02/02/23 04:17 02/02/23 04:17 Labs: Abnormal Lab Results - Last 24 Hours (Table) 02/02/23 02/02/23 Range/Units 04:17 04:17 RBC 2.28 L (4.30-5.90) m/uL Hgb 7.8 L (13.0-17.5) gm/dL Hct 23.5 L (39.0-53.0) % MCV 103.1 H (80.0-100.0) fL Sodium 133 L (137-145) mmol/L Carbon Dioxide 18 L (22-30) mmol/L Calcium 7.9 L (8.4-10.2) mg/dL Microbiology - Last 24 Hours (Table) 01/27/23 10:48 Blood Culture - Final Blood 01/27/23 10:48 Blood Culture - Final Blood Assessment and Plan Plan: Acute alcohol withdrawal syndrome presenting serum alcohol level 445, , still having active symptoms of delirium tremens and the patient remains on Precedex, clinically improving. We will gradually wean off the Precedex and discontinued today. Delirium tremens, recurrent symptoms overnight and the patient is on Precedex and Ativan in addition to a combination of Cymbalta and Remeron and BuSpar. Urine drug screen positive for marijuana Acute diarrhea, improving. Stool for C. diff has been negative. Failure to thrive with poor appetite and weeks of diarrhea, stool for occult blood positive Excoriated buttocks secondary to diarrhea Acute on chronic Anemia, rule out possibility of an upper GI bleed. No evidence of any portal hypertension with esophageal varices or portal gastropathy based on the CAT scan of the abdomen Thrombocytopenia, alcohol induced Transaminitis, alcoholic liver disease Chronic and ongoing tobacco dependence Severe cardiomyopathy suspect secondary to alcoholism, possible coronary artery disease, ejection fraction 30-35% History of anxiety/depression Hypertension Hyperlipidemia Hypothyroidism Plan: Keep the Precedex and titrate for agitation or restlessness, clinically improving Continue Ativan for now, in combination with Haldol for agitation Continue the CIWA protocol IV fluids to KVO Advance diet No plans for endoscopy at this time Discontinue the aspirin. No signs of any GI bleed and hemoglobin is stable at 7.8 Discontinue the Tylenol. Continue mirtazapine, and Cymbalta and BuSpar. We will continue to follow
[2023-02-02] MEDS: LORazepam 2 MG/ML INJ IV PRN ×3 (10:54→21:59)
--- NOTE | 2023-02-02 12:45 | CDI ---
Documentation Clarification Form Date: 02/02/2023 11:56:51 AM From: Kait Rivera RN CCDS Phone: [phone] Admit Date: 01/27/2023 02:46:00 PM Patient Name: Js Yanes Visit Number: [id number] Discharge Date: ATTENTION: The Clinical Documentation Specialists (CDI) and [facility] Coding Staff appreciate your assistance in clarifying documentation. Please respond to the clarification below the line at the bottom and electronically sign. The CDI & [facility] Coding staff will review the response and follow-up if needed. Please note: Queries are made part of the Legal Health Record. If you have any questions, please contact the author of this message via ITS. Dr. Brandyn Milton Encephalopathy is documented 02/01, Additional clarification regarding the type of encephalopathy is requested. History/Risk Factors: 52-year-old brought in because he hasnt gotten out of bed in 3 days and is continuing to drink alcohol. At admission alcohol was 400. Medical history: HLD, HTN and Alcoholism. 01/28, H&P. Clinical Indicators: Labs, 02/01: Wbc 6.2; Hgb 7.6; NA 131; Carbon Dioxide 16; Calcium 8.1 01/27, Pulmonary note: He drinks vodka and he was acutely alcohol intoxicated at time of admission and immediately went into delirium tremens. 02/01, Pulmonary note: Obviously he does have an underlying encephalopathy from alcohol withdrawals. Treatment: ICU Admission, Dexmedetomide, Haldol, Ativan CIWA protocol; Cymbalta, Remeron, BuSpar. 01/29 Magnesium IVPB x 4; 01/29 Magnesium IVPB x 1; 01/30 Magnesium IVPB x 1; 01/31 Magnesium IVPB x 1; 02/01 Magnesium IVPB x 2; Magnesium IVPB Please clarify the type of encephalopathy, if known: [ x ] Metabolic Encephalopathy due to withdrawal [ ] Metabolic Encephalopathy due to [ ] Other, please specify [ ] Unable to determine (Template Last Revised: October 2020) MTDD
[2023-02-02] MEDS: traMADol 50 MG TAB PO PRN ×2 (13:53→20:19)
--- NOTE | 2023-02-02 13:58 | P.PN ---
Subjective Progress Note Date: 02/02/23 01/28/23 Chief Complaint: Alcohol intoxication failure to thrive This is a 52-year-old male only seen in my office one time was unable to stay for the complete visit in left known history of alcoholism and his asked me what she needed to do that he been not gotten out of bed and 3 days he was developing bedsores and he has been continuing to drink alcohol during this time and has maintained significant levels of intoxication apparently for the last several years. I was asked what she needed to do I told her she needed to take him to the hospital same on petition to be admitted to the mental health unit he will probably have to be medically cleared and that is exactly what transpired. This patient was started on a Ciwa, protocol in the emergency room after being evaluated by psychiatry, patient is requiring medical clearance for admission to the mental health unit. At time of admission patient's alcohol level was 400, patient maxed out his Ativan requirements on the C iwwa protocol, he was started on a Precedex drip, of which he was having breakthrough agitation, this case was discussed with Dr. Llanos critical care medicine, he agreed for the patient to be admitted to the intensive care unit 01/30/2023 Patient is awake alert and much less agitated, still on ciwa protocol diarrhea has improved. 01/31/2023 selective overflow. Maintained on CIWA protocol, positive tremors. Current CIWA score 6. Telemetry sinus tachycardia. EF 30-35%. Hemoglobin decreased to 7.9, no bleeding reported. Maintaining O2 sats in the 90s on room air. Denies chest pain, palpitations or shortness of breath. 02/01/2023 positive DT's, progressed overnight, became increasingly agitated. Received 8 mg of Ativan overnight.Precedex resumed. Denies chest pain, palpitations or shortness of breath. Maintaining O2 sats in the 90s on room air. Tachycardia resolved, telemetry sinus. Hemoglobin 10.6, platelets 214. Renal function stable. Potassium 4.1, magnesium 1.6 02/02/2023 maintained on CIWA protocol. Currently CIWA score 7. Currently on Precedex gtt. Consumed 75% of breakfast. Renal function stable. Hemoglobin 7.8 with no signs or symptoms of bleeding. Denies abdominal pain. Objective - Vital Signs Vital signs: Vital Signs Temp 98.9 F 02/02/23 12:00 Pulse 96 02/02/23 13:00 Resp 20 02/02/23 13:00 BP 91/50 02/02/23 13:00 Pulse Ox 96 02/02/23 13:00 FiO2 21 02/02/23 07:36 Intake & Output 02/01/23 02/02/23 02/02/23 18:59 06:59 18:59 Intake Total 635.378 505.195 160.189 Output Total 1395 640 625 Balance -759.622 -134.805 -464.811 Intake: IV 240 240 140 Sodium Chloride 0.9% 1, 240 240 140 000 ml @ 20 mls/hr IV . Q24H [facility] Rx#:[id number] Intake, IV Titration 355.378 25.195 20.189 Amount Dexmedetomidine/0.9% NaCl 75.378 5.195 20.189 (Pmx) 400 mcg In Empty Bag 1 bag @ 0.2 MCG/KG/HR 3.815 mls/hr IV .Q24H [facility] Rx#:[id number] Magnesium Sulfate-D5w Pmx 200 1 gm In Dextrose/Water 1 100ml.bag @ 100 mls/hr IVPB ONCE ONE Rx#: [id number] Sodium Chloride 0.9% 1, 80 20 000 ml @ 20 mls/hr IV . Q24H [facility] Rx#:[id number] Oral 40 240 Output: Urine 1395 640 625 Other: Voiding Method Indwelling Catheter Indwelling Catheter Indwelling Catheter - Exam - Exam General: Alert, laying in bed, curled up, no acute distress. HEENT: Normocephalic, PERRL. EOMI. No pharyngeal erythema or exudate.] Neck: Supple, no JVD. Cardiac: [Heart regular in rate and rhythm. No S3. No S4. No clicks, rubs. No murmur.] Lungs: [Clear to auscultation bilaterally.] Abdomen: Soft, nondistended, nontender, no rigidity, no guarding. No organomegaly. Positive bowel sounds] Buttocks excoriated perineal area excoriated Extremes: [No edema, no cyanosis no claudication normal pulses. Skin: [No rash.] Neurologic: [No lateralizing deficits. CN II - XII grossly intact.] - Labs CBC & Chem 7: 02/02/23 04:17 02/02/23 04:17 Labs: Abnormal Lab Results - Last 24 Hours (Table) 02/02/23 02/02/23 Range/Units 04:17 04:17 RBC 2.28 L (4.30-5.90) m/uL Hgb 7.8 L (13.0-17.5) gm/dL Hct 23.5 L (39.0-53.0) % MCV 103.1 H (80.0-100.0) fL Sodium 133 L (137-145) mmol/L Carbon Dioxide 18 L (22-30) mmol/L Calcium 7.9 L (8.4-10.2) mg/dL Microbiology - Last 24 Hours (Table) 01/27/23 10:48 Blood Culture - Final Blood 01/27/23 10:48 Blood Culture - Final Blood Assessment and Plan Assessment: Assessment and Plan (1) Alcohol intoxication Current Visit: Yes Status: Acute Code(s): F10.929 - ALCOHOL USE, UNSPECIFIED WITH INTOXICATION, UNSPECIFIED SNOMED Code(s): 64829072 (2) Alcohol withdrawal Current Visit: Yes Status: Acute Code(s): F10.939 - ALCOHOL USE, UNSPECIFIED WITH WITHDRAWAL, UNSPECIFIED SNOMED Code(s): 638216942 (3) Dehydration Current Visit: Yes Status: Acute Code(s): E86.0 - DEHYDRATION SNOMED Code(s): 14303819 (4) Diarrhea Current Visit: Yes Status: Acute Code(s): R19.7 - DIARRHEA, UNSPECIFIED SNOMED Code(s): 42119169 (5) Failure to thrive Current Visit: Yes Status: Acute Code(s): MTQ1073 - SNOMED Code(s): 49821033 (6) T wave inversion in EKG Current Visit: Yes Status: Acute Code(s): R94.31 - ABNORMAL ELECTROCARDIOGRAM [ECG] [EKG] SNOMED Code(s): 88017277 (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 [facility] protocol/Precedex. Psych reconsulted. The impression and plan of care has been dictated as directed. : I performed a history and examination of this patient, discussed the same with the dictator. I agree with the dictator's note ,documented as a scribe. Any additional findings or plans will be noted.
[2023-02-02] MEDS: ATORVASTATIN 20 MG TAB PO SCH (20:20)
[2023-02-02] MEDS: MIRTAZAPINE 15 MG TAB PO SCH (20:20)
[2023-02-03] MEDS: ACAMPROSATE CALCIUM 333 MG TABLET.DR PO SCH ×4 (01:24→20:48)
[2023-02-03] MEDS: traMADol 50 MG TAB PO PRN ×3 (01:31→19:49)
[2023-02-03] MEDS: LORazepam 2 MG/ML INJ IV PRN ×6 (01:32→23:35)
[2023-02-03] MEDS: DEXMEDETOMIDINE/0.9% NACL(PMX) 400 MCG in EMPTY BAG 1 BAG IV SCH (04:56)
[2023-02-03] MEDS: ACETAMINOPHEN TAB 325 MG TAB PO PRN (04:58)
[2023-02-03] MEDS: LEVOTHYROXINE 100 MCG TAB PO SCH ×2 (04:58→06:16)
[2023-02-03 05:07] LABS: HCT 24.4 % (39.0-53.0); HGB 7.8 gm/dL (13.0-17.5); MCHC 31.8 g/dL (31.0-37.0); MCV 100.6 fL (80.0-100.0); Macrocytosis Slight; Mean Platelet Volume 8.9; Platelet Count 391 k/uL (150-450); RBC 2.42 m/uL (4.30-5.90); RDW 14.5 % (11.5-15.5); WBC 8.3 k/uL (3.8-10.6)
[2023-02-03 05:29] LABS: African American GFR (CKD) >90 (>60 ml/min/1.73 sqM); Anion Gap 9 mmol/L; Blood Urea Nitrogen 9 mg/dL (9-20); Calcium 8.4 mg/dL (8.4-10.2); Carbon Dioxide 18 mmol/L (22-30); Chloride 104 mmol/L (98-107); Glucose 92 mg/dL (74-99); Magnesium 1.7 mg/dL (1.6-2.3); Non-African American GFR(CKD) >90 (>60 ml/min/1.73 sqM); Potassium 4.1 mmol/L (3.5-5.1); Sodium 131 mmol/L (137-145)
[2023-02-03 05:39] LABS: Band Neutrophils % 1 %; Eosinophils # (M) 0.08 k/uL (0-0.7); Lymphocytes # (M) 2.32 k/uL (1.0-4.8); Monocytes # (M) 1.99 k/uL (0-1.0); Neutrophils % (M) 46 %; Nucleated Red Blood Cells 0 /100 WBC (0-0); Polychromasia Present; Total Cells Counted 100
[2023-02-03] MEDS ORDERED: MAGNESIUM SULFATE-D5W PMX 1 GM in DEXTROSE/WATER 1 100ML.BAG IVPB ONE (07:00)
[2023-02-03] MEDS: CHOLESTYRAMINE (WITH SUGAR) 4 GM PACKET PO SCH (07:40)
[2023-02-03] MEDS: THIAMINE 100 MG TAB PO SCH (07:55)
[2023-02-03] MEDS: METOPROLOL SUCCINATE (ER) 25 MG TAB.ER.24H PO SCH ×3 (07:55→09:03)
[2023-02-03] MEDS: DULoxetine HCL 60 MG CAPSULE.DR PO SCH ×2 (07:55→19:49)
[2023-02-03] MEDS: SPIRONOLACTONE 25 MG TAB PO SCH (07:56)
[2023-02-03] MEDS: SODIUM CHLORIDE 0.9% 1,000 ML IV SCH (07:58)
[2023-02-03] MEDS: HYDROPHILIC CREAM 180 GM TUBE TOPICAL SCH (08:00)
[2023-02-03] MEDS: NICOTINE 21MG/24HR PATCH TRANSDERM SCH (08:14)
[2023-02-03] MEDS: busPIRone HCl 5 MG TAB PO SCH (08:14)
[2023-02-03] MEDS: cloNIDine HCL 0.1 MG TAB PO SCH (09:03)
[2023-02-03] MEDS ORDERED: METOPROLOL SUCCINATE (ER) 25 MG TAB.ER.24H PO STA (09:26)
--- NOTE | 2023-02-03 09:28 | P.PN ---
Subjective Progress Note Date: 02/03/23 The patient is a 52-year-old male presented to the hospital with acute alcohol intoxication. Cardiology was consulted for mildly abnormal troponin level, flat trend. Echocardiogram revealed severely reduced LV function of 35% with global hypokinesis, moderate aortic regurgitation, and moderate mitral regurgitation. He was started on cardiomyopathy medications and has been monitored in the ICU during his withdrawal. The patient was interviewed and examined resting comfortably in bed. He continues to become more alert. He denies any chest pain or chest pressure. No difficulty breathing. GENERAL: Ill-appearing, pale. NECK: Supple without JVD or thyromegaly. LUNGS: Breath sounds clear to auscultation bilaterally. Respiration equal and unlabored. No wheezes, rales or rhonchi. HEART: Regular rate and rhythm. No murmurs, rubs or gallops. S1 and S2 heard. EXTREMITIES: Normal range of motion, no edema. No clubbing or cyanosis. Peripheral pulses intact and strong. VITALS: Blood pressure 119/64, pulse 89, respiratory rate 22, SpO2 93% on room air TELEMETRY: Sinus rhythm overnight with heart rates in the mid 80s IMPRESSION: Acute alcohol withdrawal Sinus tachycardia Cardiomyopathy, likely nonischemic Mitral regurgitation Aortic regurgitation Positive occult blood with anemia PLAN: Increase metoprolol to 50 mg twice daily Once patient is transferred to medical floor and becomes stable from withdrawals, consideration for coronary angiogram Further recommendations to be based upon clinical course I am dictating on behalf of Dr Tai James's history/physical and assessment/pl an. Objective - Vital Signs Vital signs: Vital Signs Temp 99.0 F 02/03/23 07:53 Pulse 89 02/03/23 09:00 Resp 22 02/03/23 09:00 BP 119/64 02/03/23 09:00 Pulse Ox 93 L 02/03/23 09:00 FiO2 21 02/02/23 07:36 Intake & Output 02/02/23 02/03/23 02/03/23 18:59 06:59 18:59 Intake Total 273.895 480 470 Output Total 985 1150 0 Balance -711.105 -670 470 Weight 79.5 kg Intake: IV 240 240 240 Invasive Line 7 10 Invasive Line 8 40 Magnesium Sulfate-D5w Pmx 100 1 gm In Dextrose/Water 1 100ml.bag @ 100 mls/hr IVPB ONCE ONE Rx#: [id number] Sodium Chloride 0.9% 1, 240 240 90 000 ml @ 20 mls/hr IV . Q24H [facility] Rx#:[id number] Intake, IV Titration 33.895 Amount Dexmedetomidine/0.9% NaCl 33.895 (Pmx) 400 mcg In Empty Bag 1 bag @ 0.2 MCG/KG/HR 3.815 mls/hr IV .Q24H [facility] Rx#:[id number] Oral 240 230 Output: Urine 985 1150 0 Other: Voiding Method Indwelling Catheter Indwelling Catheter External Catheter # Bowel Movements 0 - Labs CBC & Chem 7: 02/03/23 04:46 02/03/23 04:46 Labs: Abnormal Lab Results - Last 24 Hours (Table) 02/03/23 02/03/23 Range/Units 04:46 04:46 RBC 2.42 L (4.30-5.90) m/uL Hgb 7.8 L (13.0-17.5) gm/dL Hct 24.4 L (39.0-53.0) % MCV 100.6 H (80.0-100.0) fL Monocytes # (Manual) 1.99 H (0-1.0) k/uL Sodium 131 L (137-145) mmol/L Carbon Dioxide 18 L (22-30) mmol/L
--- NOTE | 2023-02-03 09:51 | P.PN ---
Subjective Progress Note Date: 02/03/23 This is a 52-year-old male patient with a known history of hypertension, hyperlipidemia, chronic cervical pain, anxiety/depression, chronic and ongoing tobacco dependence, chronic and ongoing heavy daily alcohol abuse. He also has been having issues with diarrhea for weeks and poor appetite. His brought him into the emergency room on 01/27/2023 for the same. His alcohol level was 445. Urine drug screen positive for marijuana. Influenza screen negative. RSV screen negative. COVID-19 screen negative. His stool for occult blood was positive. White count 8.7. Hemoglobin 8.8. MCV 102.7. Platelets 71,000. Sodium 135. Potassium 3.3. Bicarb 18. BUN 15. Creatinine 0.81. Glucose 145. Magnesium 1.2. Chest x-ray revealed chronic changes of COPD without acute pulmonary process. Computed tomography scan of the abdomen and pelvis revealed no acute abdominal/pelvic process. Hepatic steatosis. Hydropic gallbladder. Echocardiogram reveals severe left ventricular systolic dysfunction with ejection fraction of 30-35%. Severe global hypokinesia. Moderate mitral and aortic regurgitation. The skin on his buttocks is extremely excoriated. He initially required Precedex while in the emergency room. That has since been weaned off. He is seen today in consultation in the ICU. He is arousable but drifts off. He has been requiring Haldol and Ativan. Maintaining good O2 satu rations in the mid to upper 90s on room air. He's been afebrile. He is tachycardic. Blood pressure stable. The patient is seen today 01/30/2023 in follow-up in the intensive care unit. He is currently resting comfortably in bed. Awake and alert. Maintaining good O2 saturations in the 90s on room air. He's been afebrile. Still somewhat tachycardic. Blood pressure stable. Blood cultures reveal no growth. White count 8.0. Hemoglobin 7.9. MCV 103.4. Platelet count 86,000. Sodium 132. Potassium 3.7. Bicarb 20. BUN 9. Creatinine 0.69. Glucose 105. C. difficile screen was negative. He remains in the CIWA protocol. NicoDerm patches in place. He remains on normal saline at 150 MLS per hour. He is tolerating a diet. 01/31/2023, the patient is communicating and is awake and alert. He is aware that is in the hospital. He remains quite shaky. No hallucinations. He is on room air oxygen. Hemodynamically, stable, still has some mild sinus tachycardia. IV fluids are currently at KVO. Meanwhile, he was given oral diet. We have not witnessed any GI bleeding. Hemoglobin has dropped onto 7.9 and the patient's cognition profile was within normal limits. He has chronic pancytopenia. He had positive occult blood. CAT scan of the abdomen that was done on 01/27/2023 showed hepatic steatosis, no acute intra-abdominal process, hydropic gallbladder. LFTs were consistent with alcoholic hepatitis with elevated AST and ALT. The patient was having diarrhea. Stool for C. diff has been negative. 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 He drinks vodka and he was acutely alcohol intoxicated at time of admission and immediately went into delirium tremens. Currently is off Precedex. No reported aspiration. It is on room air oxygen. His chest x-ray from time of admission showed no acute abnorm alities. 02/01/2023, the patient is in the intensive care unit for complications of alcohol withdrawal with, delirium tremens. Overnight, the patient became progressively more agitated. He restarted back on Precedex which is running at 0.4 mcg/kg/h. CBC more comfortable on this morning's evaluation. Ativan was also given, a total of 8 mg overnight. He is awake. She continues to be quite shaky. He is communicating. Obviously he does have an underlying encephalopathy from alcohol withdrawals. He is on room air oxygen. Pulse ox 93%. Hemodynamically stable. Cardiac rhythm is sinus and without any sinus tachycardia. In terms of his labs, WBC count is at 6.2 with a hemoglobin of 7.6 which is essentially stable. Platelet counts are improved and it's up to 214. BUN is at 10 with a creatinine of 0.8 and the sodium levels of 131. The liver function tests were noted from yesterday, none for today. He was provided diet and he is eating with close supervision. He is on BuSpar 50 mg along with Remeron 50 mg at bedtime and Cymbalta 60 mg by mouth daily. IV fluids are in the form of KVO. He is on thiamine also. 02/02/2023, I'm seeing the patient for a follow-up. Much improved since yesterday. Still on Precedex at a dose of 0.1 mcg/kg/h. No significant agitation. He did receive Ativan overnight a total of 2 mg was given to him. He is tolerating his diet. His IV fluids are currently at KVO. He is on thiamine. He is also on BuSpar, Remeron Cymbalta. Blood work from today shows of the mediastinal 7.2 with hemoglobin of 7.8 and a platelet count of 275. Serum bicarbs at 18 with a sodium level of 133, BUN is at 12 with a creatinine of 0.8. No other significant issues over the past 24 hours. Is currently comfortable at this point in time. 02/03/2023, the patient is on room air oxygen. He is calm and comfortable. No agitation. No altered mentation. He is off Precedex for now. He remains hemodynamically stable. No fever. No chills. Adequate urine output. He remains on a combination of BuSpar, Remeron and Cymbalta. On his blood work, his hemoglobin is stable at 7.8 with a white cell count of 8.3 and a platelet count of 391. BUN is at 9 with a creatinine of 0.7 and a sodium level is at 131. The patient is is tolerating diet for now. He was offered a nicotine patch. No other significant events overnight. Objective - Vital Signs Vital signs: Vital Signs Temp 99.0 F 02/03/23 07:53 Pulse 89 02/03/23 09:00 Resp 22 02/03/23 09:00 BP 119/64 02/03/23 09:00 Pulse Ox 93 L 02/03/23 09:00 FiO2 21 02/02/23 07:36 Intake & Output 02/02/23 02/03/23 02/03/23 18:59 06:59 18:59 Intake Total 273.895 480 470 Output Total 985 1150 0 Balance -711.105 -670 470 Weight 79.5 kg Intake: IV 240 240 240 Invasive Line 7 10 Invasive Line 8 40 Magnesium Sulfate-D5w Pmx 100 1 gm In Dextrose/Water 1 100ml.bag @ 100 mls/hr IVPB ONCE ONE Rx#: [id number] Sodium Chloride 0.9% 1, 240 240 90 000 ml @ 20 mls/hr IV . Q24H [facility] Rx#:[id number] Intake, IV Titration 33.895 Amount Dexmedetomidine/0.9% NaCl 33.895 (Pmx) 400 mcg In Empty Bag 1 bag @ 0.2 MCG/KG/HR 3.815 mls/hr IV .Q24H [facility] Rx#:[id number] Oral 240 230 Output: Urine 985 1150 0 Other: Voiding Method Indwelling Catheter Indwelling Catheter External Catheter # Bowel Movements 0 - Exam GENERAL EXAM: Awake, alert, 52-year-old male, on room air, iin no apparent distress. HEAD: Normocephalic. EYES: Normal reaction of pupils, equal size. NOSE: Clear with pink turbinates. THROAT: No erythema or exudates. NECK: No masses, no JVD. CHEST: No chest wall deformity. LUNGS: Equal air entry with no crackles, wheeze, rhonchi or dullness. CVS: S1 and S2 normal with no audible murmur, regular rhythm. ABDOMEN: No hepatosplenomegaly, normal bowel sounds, no guarding or rigidity. SPINE: No scoliosis or deformity SKIN: Excoriated buttocks CENTRAL NERVOUS SYSTEM: No focal deficits, tone is normal in all 4 extremities. EXTREMITIES: There is no peripheral edema. No clubbing, no cyanosis. Peripheral pulses are intact. - Labs CBC & Chem 7: 02/03/23 04:46 02/03/23 04:46 Labs: Abnormal Lab Results - Last 24 Hours (Table) 02/03/23 02/03/23 Range/Units 04:46 04:46 RBC 2.42 L (4.30-5.90) m/uL Hgb 7.8 L (13.0-17.5) gm/dL Hct 24.4 L (39.0-53.0) % MCV 100.6 H (80.0-100.0) fL Monocytes # (Manual) 1.99 H (0-1.0) k/uL Sodium 131 L (137-145) mmol/L Carbon Dioxide 18 L (22-30) mmol/L Assessment and Plan Plan: Acute alcohol withdrawal syndrome presenting serum alcohol level 445, , still having active symptoms of delirium tremens and the patient improved off Precedex, normal mentation, no hallucinations or tremors. No agitation. Delirium tremens, improved Urine drug screen positive for marijuana Acute diarrhea, improving. Stool for C. diff has been negative. Failure to thrive with poor appetite and weeks of diarrhea, stool for occult blood positive Excoriated buttocks secondary to diarrhea Acute on chronic Anemia, rule out possibility of an upper GI bleed. No evidence of any portal hypertension with esophageal varices or portal gastropathy based on the CAT scan of the abdomen Thrombocytopenia, alcohol induced Transaminitis, alcoholic liver disease Chronic and ongoing tobacco dependence Severe cardiomyopathy suspect secondary to alcoholism, possible coronary artery disease, ejection fraction 30-35% History of anxiety/depression Hypertension Hyperlipidemia Hypothyroidism Plan: Advance diet Continue Ativan per CIWA protocol IV fluids to KVO Advance diet No plans for endoscopy at this time Discontinue the aspirin. No signs of any GI bleed and hemoglobin is stable at 7.8, unchanged since yesterday Discontinue the Tylenol. Continue mirtazapine, and Cymbalta and BuSpar. We will continue to follow Transfer the patient to medical surgical floor
--- NOTE | 2023-02-03 10:37 | P.PN ---
Subjective Progress Note Date: 02/03/23 01/28/23 Chief Complaint: Alcohol intoxication failure to thrive This is a 52-year-old male only seen in my office one time was unable to stay for the complete visit in left known history of alcoholism and his asked me what she needed to do that he been not gotten out of bed and 3 days he was developing bedsores and he has been continuing to drink alcohol during this time and has maintained significant levels of intoxication apparently for the last several years. I was asked what she needed to do I told her she needed to take him to the hospital same on petition to be admitted to the mental health unit he will probably have to be medically cleared and that is exactly what transpired. This patient was started on a Ciwa, protocol in the emergency room after being evaluated by psychiatry, patient is requiring medical clearance for admission to the mental health unit. At time of admission patient's alcohol level was 400, patient maxed out his Ativan requirements on the C iwwa protocol, he was started on a Precedex drip, of which he was having breakthrough agitation, this case was discussed with Dr. Llanos critical care medicine, he agreed for the patient to be admitted to the intensive care unit 01/30/2023 Patient is awake alert and much less agitated, still on ciwa protocol diarrhea has improved. 01/31/2023 selective overflow. Maintained on CIWA protocol, positive tremors. Current CIWA score 6. Telemetry sinus tachycardia. EF 30-35%. Hemoglobin decreased to 7.9, no bleeding reported. Maintaining O2 sats in the 90s on room air. Denies chest pain, palpitations or shortness of breath. 02/01/2023 positive DT's, progressed overnight, became increasingly agitated. Received 8 mg of Ativan overnight.Precedex resumed. Denies chest pain, palpitations or shortness of breath. Maintaining O2 sats in the 90s on room air. Tachycardia resolved, telemetry sinus. Hemoglobin 10.6, platelets 214. Renal function stable. Potassium 4.1, magnesium 1.6 02/02/2023 maintained on CIWA protocol. Currently CIWA score 7. Currently on Precedex gtt. Consumed 75% of breakfast. Renal function stable. Hemoglobin 7.8 with no signs or symptoms of bleeding. Denies abdominal pain. 02/03/2023 Precedex weaned off. More alert , without agitation, conversing appropriately. Ambulating to chair with PT assistance. Complains of left ankle pain. Telemetry sinus rhythm. Receiving magnesium supplement for her magnesium level I.7. Hemoglobin 78, platelets 391. Renal function stable. Denies chest pain, palpitations or shortness of breath. Maintaining O2 sats in the 90s on room air. T-max 99.6, WBC within normal limits. Objective - Vital Signs Vital signs: Vital Signs Temp 99.0 F 02/03/23 07:53 Pulse 89 02/03/23 09:00 Resp 22 02/03/23 09:00 BP 119/64 02/03/23 09:00 Pulse Ox 93 L 02/03/23 09:00 FiO2 21 02/02/23 07:36 Intake & Output 02/02/23 02/03/23 02/03/23 18:59 06:59 18:59 Intake Total 273.895 480 470 Output Total 985 1150 0 Balance -711.105 -670 470 Weight 79.5 kg Intake: IV 240 240 240 Invasive Line 7 10 Invasive Line 8 40 Magnesium Sulfate-D5w Pmx 100 1 gm In Dextrose/Water 1 100ml.bag @ 100 mls/hr IVPB ONCE ONE Rx#: [id number] Sodium Chloride 0.9% 1, 240 240 90 000 ml @ 20 mls/hr IV . Q24H [facility] Rx#:[id number] Intake, IV Titration 33.895 Amount Dexmedetomidine/0.9% NaCl 33.895 (Pmx) 400 mcg In Empty Bag 1 bag @ 0.2 MCG/KG/HR 3.815 mls/hr IV .Q24H [facility] Rx#:[id number] Oral 240 230 Output: Urine 985 1150 0 Other: Voiding Method Indwelling Catheter Indwelling Catheter External Catheter # Bowel Movements 0 - Exam - Exam General: Alert and oriented 2-3 ,Sitting up in chair, no acute distress HEENT: Normocephalic, PERRL. EOMI. No pharyngeal erythema or exudate.] Neck: Supple, no JVD. Cardiac: [Heart regular in rate and rhythm. No S3. No S4. No clicks, rubs. No murmur.] Lungs: [Clear to auscultation bilaterally.] Abdomen: Soft, nondistended, nontender, no rigidity, no guarding. No organomegaly. Positive bowel sounds] Buttocks excoriated perineal area excoriated Extremes: [Left ankle talar tilt with painful immersion , positive plantar flexion and dorsiflexion , no edema, no redness . no cyanosis no claudication normal pulses. Skin: [No rash. Neurologic: [No lateralizing deficits. CN II - XII grossly intact.] - Labs CBC & Chem 7: 02/03/23 04:46 02/03/23 04:46 Labs: Abnormal Lab Results - Last 24 Hours (Table) 02/03/23 02/03/23 Range/Units 04:46 04:46 RBC 2.42 L (4.30-5.90) m/uL Hgb 7.8 L (13.0-17.5) gm/dL Hct 24.4 L (39.0-53.0) % MCV 100.6 H (80.0-100.0) fL Monocytes # (Manual) 1.99 H (0-1.0) k/uL Sodium 131 L (137-145) mmol/L Carbon Dioxide 18 L (22-30) mmol/L Assessment and Plan Assessment: Assessment and Plan (1) Alcohol intoxication Current Visit: Yes Status: Acute Code(s): F10.929 - ALCOHOL USE, UNSPECIFIED WITH INTOXICATION, UNSPECIFIED SNOMED Code(s): 30836695 (2) Alcohol withdrawal Current Visit: Yes Status: Acute Code(s): F10.939 - ALCOHOL USE, UNSPECIFIED WITH WITHDRAWAL, UNSPECIFIED SNOMED Code(s): 517066151 (3) Dehydration Current Visit: Yes Status: Acute Code(s): E86.0 - DEHYDRATION SNOMED Cod e(s): 33798417 (4) Diarrhea Current Visit: Yes Status: Acute Code(s): R19.7 - DIARRHEA, UNSPECIFIED SNOMED Code(s): 59873391 (5) Failure to thrive Current Visit: Yes Status: Acute Code(s): JLM4087 - SNOMED Code(s): 47648971 (6) T wave inversion in EKG Current Visit: Yes Status: Acute Code(s): R94.31 - ABNORMAL ELECTROCARDIOGRAM [ECG] [EKG] SNOMED Code(s): 19149598 (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 Left ankle x-ray ordered, unknown trauma; history of gout, uric ac id, CRP and ESR ordered. Psych. consult in place, recommendations pending. Maintain [facility] protocol. Cleared for transfer to [facility] as per financial investment adviser. The impression and plan of care has been dictated as directed. : I performed a history and examination of this patient, discussed the same with the dictator. I agree with the dictator's note ,documented as a scribe. Any additional findings or plans will be noted.
[2023-02-03 11:31] LABS: Uric Acid 5.3 mg/dL (3.5-8.5)
[2023-02-03 11:54] LABS: C Reactive Protein 12.1 mg/dL (<1.0)
[2023-02-03 12:19] VITALS: BMI 25.1
--- NOTE | 2023-02-03 13:37 | P.PN ---
Progress Note - Text Progress Note Date: 02/03/23 Interval History: Patient was seen resting in bed and was directable and agreeable to speak with contract writer in his room. Currently, the patient is not reporting any suicidal or homicidal ideation, intention, and/or plan. He is not reporting any auditory or visual hallucinations. He denies any paranoia or other delusions. The patient states that he is "done with alcohol." He reports that this is his rock bottom as this is the longest he has ever been hospitalized and has been dealing with very bad physical complications from his drinking. He reports right now that his primary concern is dealing with ankle pain. The patient expresses no desire for inpatient substance abuse rehabilitation at this time. He reports no desire for inpatient psychiatric admission. Mental Status Exam: General Appearance: Patient appears to be stated age is alert, directable, and cooperative. Slightly disheveled. Behavior: Patient is calmly lying down in bed without any agitated behavior. Speech: Patient's speech is fluent and nonpressured. Mood/Affect: Mood is improving mildly, affect is congruent and constricted. Suicidality/Homicidality: Patient denies having any suicidal or homicidal ideation intent or plan. Perceptions: Patient denies any visual hallucinations and denies any auditory hallucinations Though content/process: There is no evidence of any delusional thought content and thought process is linear and goal-directed. Memory and concentration: AOX3, grossly intact for the purposes of this session Judgment and insight: Improving mildly Vital Signs Temp 99.0 F 02/03/23 07:53 Pulse 90 02/03/23 10:00 Resp 25 H 02/03/23 10:00 BP 114/65 02/03/23 10:00 Pulse Ox 96 02/03/23 10:00 FiO2 21 02/02/23 07:36 Intake & Output 02/02/23 02/03/23 02/03/23 18:59 06:59 18:59 Intake Total 273.895 480 760 Output Total 985 1150 400 Balance -711.105 -670 360 Weight 79.5 kg 79.5 kg Intake: IV 240 240 290 Invasive Line 7 10 Invasive Line 8 40 Magnesium Sulfate-D5w Pmx 100 1 gm In Dextrose/Water 1 100ml.bag @ 100 mls/hr IVPB ONCE ONE Rx#: [id number] Sodium Chloride 0.9% 1, 240 240 140 000 ml @ 20 mls/hr IV . Q24H [facility] Rx#:[id number] Intake, IV Titration 33.895 Amount Dexmedetomidine/0.9% NaCl 33.895 (Pmx) 400 mcg In Empty Bag 1 bag @ 0.2 MCG/KG/HR 3.815 mls/hr IV .Q24H [facility] Rx#:[id number] Oral 240 470 Output: Urine 985 1150 400 Other: Voiding Method Indwelling Catheter Indwelling Catheter External Catheter # Bowel Movements 0 Laboratory Results - Last 24 Hours 02/03/23 02/03/23 02/03/23 04:46 04:46 04:46 WBC 8.3 RBC 2.42 L Hgb 7.8 L Hct 24.4 L MCV 100.6 H MCH 32.0 MCHC 31.8 RDW 14.5 Plt Count 391 MPV 8.9 Neutrophils % (Manual) 46 Band Neuts % (Manual) 1 Lymphocytes % (Manual) 28 Monocytes % (Manual) 24 Eosinophils % (Manual) 1 Neutrophils # (Manual) 3.90 Lymphocytes # (Manual) 2.32 Monocytes # (Manual) 1.99 H Eosinophils # (Manual) 0.08 Nucleated RBCs 0 Manual Slide Review Performed Polychromasia Present Macrocytosis Slight Sodium 131 L Potassium 4.1 Chloride 104 Carbon Dioxide 18 L Anion Gap 9 BUN 9 Creatinine 0.76 Est GFR (CKD-EPI)AfAm >90 Est GFR (CKD-EPI)NonAf >90 Glucose 92 Uric Acid 5.3 Calcium 8.4 Magnesium 1.7 C-Reactive Protein 12.1 H Assessment Alcohol use disorder Alcohol induced depressive disorder Plan: -Continue your medical management -At this time patient DOES NOT meet criteria for inpatient psychiatric admission. Primary issue is alcohol use disorder and not mood disorder. The patient has been adherent with his medications and is not presenting with imminent risk of harm to self or others. He is denying any suicidal or homicidal ideation, intention, and/or plan and is not overtly manic or psychotic. -Would recommend the following medication changes/additions: Increase Cymbalta 30 mg in the morning and 60 mg at bedtime for depression BuSpar 15 mg by mouth daily for anxiety Remeron 15 mg by mouth at bedtime for depression/insomnia/appetite stimulation Acamprosate 666 mg by mouth 3 times a day for alcohol cessation -Motivational interviewing to address alcohol cessation was discussed in great detail with the patient. Patient reports that this is his "rock bottom." -Recommend patient is provided resources for sentence abuse rehabilitation w [facility] inpatient or outpatient. -Psychiatry will sign off at this time. Please call us or reconsult us with any questions or concerns.
[2023-02-03] MEDS: ASPIRIN 81 MG PO SCH (15:46)
[2023-02-03] MEDS: MIRTAZAPINE 15 MG TAB PO SCH (19:49)
[2023-02-03] MEDS: ATORVASTATIN 20 MG TAB PO SCH (19:49)
[2023-02-03] MEDS: METOPROLOL SUCCINATE (ER) 50 MG TAB.ER.24H PO SCH (20:48)
[2023-02-04] MEDS: LEVOTHYROXINE 100 MCG TAB PO SCH (05:48)
[2023-02-04 06:48] LABS: Basophils # (A) 0.1 k/uL (0-0.2); Basophils % (A) 1 %; Eosinophils # (A) 0.1 k/uL (0-0.7); Eosinophils % (A) 1 %; HCT 25.9 % (39.0-53.0); HGB 8.4 gm/dL (13.0-17.5); Hypochromasia Slight; Lymphocytes # (A) 2.1 k/uL (1.0-4.8); Lymphocytes % (A) 24 %; MCH 33.3 pg (25.0-35.0); MCHC 32.3 g/dL (31.0-37.0); MCV 102.9 fL (80.0-100.0); Macrocytosis Slight; Mean Platelet Volume 8.4; Monocytes # (A) 1.4 k/uL (0-1.0); Monocytes % (A) 16 %; Neutrophils # (A) 4.8 k/uL (1.3-7.7); Neutrophils % (A) 55 %; Platelet Count 496 k/uL (150-450); RBC 2.52 m/uL (4.30-5.90); RDW 14.3 % (11.5-15.5); WBC 8.9 k/uL (3.8-10.6)
[2023-02-04 07:53] LABS: ALT 26 U/L (4-49); AST 24 U/L (17-59); African American GFR (CKD) >90 (>60 ml/min/1.73 sqM); Albumin 2.7 g/dL (3.5-5.0); Alkaline Phosphatase 159 U/L (38-126); Amylase 87 U/L (30-110); Anion Gap 7 mmol/L; Blood Urea Nitrogen 11 mg/dL (9-20); Calcium 8.4 mg/dL (8.4-10.2); Carbon Dioxide 22 mmol/L (22-30); Chloride 104 mmol/L (98-107); Globulin 2.8 g/dL; Glucose 91 mg/dL (74-99); Lipase 251 U/L (23-300); Magnesium 1.7 mg/dL (1.6-2.3); Non-African American GFR(CKD) >90 (>60 ml/min/1.73 sqM); Potassium 4.3 mmol/L (3.5-5.1); Sodium 133 mmol/L (137-145); Total Bilirubin 0.3 mg/dL (0.2-1.3); Total Protein 5.5 g/dL (6.3-8.2)
[2023-02-04] MEDS: ASPIRIN 81 MG PO SCH (08:01)
[2023-02-04] MEDS: ACAMPROSATE CALCIUM 333 MG TABLET.DR PO SCH ×3 (08:01→20:38)
[2023-02-04] MEDS: THIAMINE 100 MG TAB PO SCH (08:01)
[2023-02-04] MEDS: busPIRone HCl 5 MG TAB PO SCH (08:01)
[2023-02-04] MEDS: NICOTINE 21MG/24HR PATCH TRANSDERM SCH (08:01)
[2023-02-04] MEDS: METOPROLOL SUCCINATE (ER) 50 MG TAB.ER.24H PO SCH ×2 (08:01→20:37)
[2023-02-04] MEDS: DULoxetine HCL 30 MG CAPSULE.DR PO SCH (08:01)
[2023-02-04] MEDS: SPIRONOLACTONE 25 MG TAB PO SCH (08:02)
[2023-02-04] MEDS: SODIUM CHLORIDE 0.9% 1,000 ML IV SCH (08:08)
[2023-02-04] MEDS: traMADol 50 MG TAB PO PRN (08:22)
--- NOTE | 2023-02-04 10:27 | P.PN ---
Subjective Progress Note Date: 02/04/23 HISTORY OF PRESENT ILLNESS: This is a 52-year-old male who presented to the hospital secondary to acute alcohol intoxication. Patient had mildly abnormal troponin levels on admission and cardiology was consulted for further evaluation. Patient went echocardiogram revealing ejection fraction of 35% with global hypokinesis, moderate aortic regurgitation, and moderate mitral regurgitation. Patient examined this for at the bedside. Patient denies chest pain or pressure. He denies shortness of breath. He complains of significant left ankle pain. PHYSICAL EXAM: VITAL SIGNS: Reviewed. GENERAL: Well-developed in no acute distress. NECK: Supple. No JVD or thyromegaly LUNGS: Respirations even and unlabored. Lungs essentially clear to auscultation bilaterally. HEART: Regular rate and rhythm. S1 and S2 heard. EXTREMITIES: Normal range of motion. No clubbing or cyanosis. Peripheral pulses intact. No lower extremity edema ASSESSMENT: Acute alcohol intoxication Acute alcohol withdrawal Sinus tachycardia Cardiomyopathy, etiology unclear, suspect to be nonischemic, however cannot rule out underlying CAD Moderate aortic regurgitation Moderate mitral regurgitation History of alcohol abuse Left ankle pain PLAN: Continue current cardiac medications Await discharge plans from internal medicine. If patient is still admitted over the weekend, may plan for cardiac cath next week. However, if plans are for discharge soon, patient may be discharged from a cardiac standpoint and follow up in the office to schedule cardiac catheterization to be performed as an outpatient Further recommendations pending patient course Nurse practitioner note has been reviewed by physician. Signing provider agrees with the documented findings, assessment, and plan of care. Objective - Vital Signs Vital signs: Vital Signs Temp 99.6 F 02/04/23 02:01 Pulse 93 02/04/23 02:01 Resp 18 02/04/23 02:01 BP 112/65 02/04/23 02:01 Pulse Ox 94 L 02/04/23 08:49 FiO2 21 02/02/23 07:36 Intake & Output 02/03/23 02/04/23 02/04/23 18:59 06:59 18:59 Intake Total 920 Output Total 800 1500 Balance 120 -1500 Weight 79.5 kg 76.8 kg Intake: IV 450 Invasive Line 7 10 Invasive Line 8 40 Magnesium Sulfate-D5w Pmx 100 1 gm In Dextrose/Water 1 100ml.bag @ 100 mls/hr IVPB ONCE ONE Rx#: [id number] Sodium Chloride 0.9% 1, 300 000 ml @ 20 mls/hr IV . Q24H [facility] Rx#:[id number] Oral 470 Output: Urine 800 1500 Other: Voiding Method External Catheter Urinal Urinal Incontinent Incontinent # Voids 1 # Bowel Movements 1 - Labs CBC & Chem 7: 02/04/23 06:24 02/04/23 06:24 Labs: Abnormal Lab Results - Last 24 Hours (Table) 02/03/23 02/03/23 02/04/23 Range/Units 04:46 04:46 06:24 RBC (4.30-5.90) m/uL Hgb (13.0-17.5) gm/dL Hct (39.0-53.0) % MCV (80.0-100.0) fL Plt Count (150-450) k/uL Monocytes # (0-1.0) k/uL ESR 129 H (0-15) mm/hr Sodium 133 L (137-145) mmol/L Alkaline Phosphatase 159 H (38-126) U/L C-Reactive Protein 12.1 H (<1.0) mg/dL Total Protein 5.5 L (6.3-8.2) g/dL Albumin 2.7 L (3.5-5.0) g/dL 02/04/23 Range/Units 06:24 RBC 2.52 L (4.30-5.90) m/uL Hgb 8.4 L (13.0-17.5) gm/dL Hct 25.9 L (39.0-53.0) % MCV 102.9 H (80.0-100.0) fL Plt Count 496 H (150-450) k/uL Monocytes # 1.4 H (0-1.0) k/uL ESR (0-15) mm/hr Sodium (137-145) mmol/L Alkaline Phosphatase (38-126) U/L C-Reactive Protein (<1.0) mg/dL Total Protein (6.3-8.2) g/dL Albumin (3.5-5.0) g/dL
[2023-02-04] MEDS ORDERED: chlordiazePOXIDE 25 MG CAP PO PRN (12:42)
[2023-02-04] MEDS ORDERED: MAGNESIUM SULFATE-D5W PMX 1 GM in DEXTROSE/WATER 1 100ML.BAG IVPB ONE (13:00)
--- NOTE | 2023-02-04 13:24 | P.PN ---
Subjective Progress Note Date: 02/04/23 01/28/23 Chief Complaint: Alcohol intoxication failure to thrive This is a 52-year-old male only seen in my office one time was unable to stay for the complete visit in left known history of alcoholism and his asked me what she needed to do that he been not gotten out of bed and 3 days he was developing bedsores and he has been continuing to drink alcohol during this time and has maintained significant levels of intoxication apparently for the last several years. I was asked what she needed to do I told her she needed to take him to the hospital same on petition to be admitted to the mental health unit he will probably have to be medically cleared and that is exactly what transpired. This patient was started on a Ciwa, protocol in the emergency room after being evaluated by psychiatry, patient is requiring medical clearance for admission to the mental health unit. At time of admission patient's alcohol level was 400, patient maxed out his Ativan requirements on the C iwwa protocol, he was started on a Precedex drip, of which he was having breakthrough agitation, this case was discussed with Dr. Llanos critical care medicine, he agreed for the patient to be admitted to the intensive care unit 01/30/2023 Patient is awake alert and much less agitated, still on ciwa protocol diarrhea has improved. 01/31/2023 selective overflow. Maintained on CIWA protocol, positive tremors. Current CIWA score 6. Telemetry sinus tachycardia. EF 30-35%. Hemoglobin decreased to 7.9, no bleeding reported. Maintaining O2 sats in the 90s on room air. Denies chest pain, palpitations or shortness of breath. 02/01/2023 positive DT's, progressed overnight, became increasingly agitated. Received 8 mg of Ativan overnight.Precedex resumed. Denies chest pain, palpitations or shortness of breath. Maintaining O2 sats in the 90s on room air. Tachycardia resolved, telemetry sinus. Hemoglobin 10.6, platelets 214. Renal function stable. Potassium 4.1, magnesium 1.6 02/02/2023 maintained on CIWA protocol. Currently CIWA score 7. Currently on Precedex gtt. Consumed 75% of breakfast. Renal function stable. Hemoglobin 7.8 with no signs or symptoms of bleeding. Denies abdominal pain. 02/03/2023 Precedex weaned off. More alert , without agitation, conversing appropriately. Ambulating to chair with PT assistance. Complains of left ankle pain. Telemetry sinus rhythm. Receiving magnesium supplement for her magnesium level I.7. Hemoglobin 78, platelets 391. Renal function stable. Denies chest pain, palpitations or shortness of breath. Maintaining O2 sats in the 90s on room air. T-max 99.6, WBC within normal limits. 02/04/2023 evaluated by psychiatry, patient does not meet criteria for inpatient psychiatric admission, with medication recommendations noted and appreciated. Tremors continue,CIWA score 6. Consuming 100% of his breakfast, with no nausea vomiting or diarrhea. Participate with physical therapy today using a rolling walker, minimal assistance, poor balance, ataxia. Ankle x-ray completed yest crystal, report pending. Currently not complaining of left ankle pain/Stood at bedside with walker. T-max 99.6, WBC within normal limits, CRP 12.1, sed rate pending uric acid normal, 5.3. Denies any chest pain, palpitations or shortness of breath. Maintaining O2 sats of 97 room air. Echo reporting severe global hypokinesis, EF 30-35%, moderate left ventricular dilatation. Objective - Vital Signs Vital signs: Vital Signs Temp 98.8 F 02/04/23 07:03 Pulse 95 02/04/23 07:03 Resp 18 02/04/23 07:03 BP 117/68 02/04/23 07:03 Pulse Ox 94 L 02/04/23 08:49 FiO2 21 02/02/23 07:36 Intake & Output 02/03/23 02/04/23 02/04/23 18:59 06:59 18:59 Intake Total 920 Output Total 800 1500 Balance 120 -1500 Weight 79.5 kg 76.8 kg Intake: IV 450 Invasive Line 7 10 Invasive Line 8 40 Magnesium Sulfate-D5w Pmx 100 1 gm In Dextrose/Water 1 100ml.bag @ 100 mls/hr IVPB ONCE ONE Rx#: [id number] Sodium Chloride 0.9% 1, 300 000 ml @ 20 mls/hr IV . Q24H [facility] Rx#:[id number] Oral 470 Output: Urine 800 1500 Other: Voiding Method External Catheter Urinal Urinal Incontinent Incontinent # Voids 1 # Bowel Movements 1 - Exam - Exam General: Alert and oriented 2-3 ,Sitting up at bedside, no acute distress, significant generalized weakness, tremors HEENT: Normocephalic, PERRL. EOMI. No pharyngeal erythema or exudate.] Neck: Supple, no JVD. Cardiac: [Heart regular in rate and rhythm. No S3. No S4. No clicks, rubs. No murmur.] Lungs: [Clear to auscultation bilaterally.] Abdomen: Soft, nondistended, nontender, no rigidity, no guarding. Positive bowel sounds] Buttocks excoriated perineal area excoriated Extremes: no edema, no redness . no cyanosis no claudication normal pulses. Skin: [No rash. Neurologic: [No lateralizing deficits. CN II - XII grossly intact.] - Labs CBC & Chem 7: 02/04/23 06:24 02/04/23 06:24 Labs: Abnormal Lab Results - Last 24 Hours (Table) 02/03/23 02/04/23 02/04/23 Range/Units 04:46 06:24 06:24 RBC 2.52 L (4.30-5.90) m/uL Hgb 8.4 L (13.0-17.5) gm/dL Hct 25.9 L (39.0-53.0) % MCV 102.9 H (80.0-100.0) fL Plt Count 496 H (150-450) k/uL Monocytes # 1.4 H (0-1.0) k/uL ESR 129 H (0-15) mm/hr Sodium 133 L (137-145) mmol/L Alkaline Phosphatase 159 H (38-126) U/L Total Protein 5.5 L (6.3-8.2) g/dL Albumin 2.7 L (3.5-5.0) g/dL Assessment and Plan Assessment: Assessment and Plan (1) Alcohol intoxication Current Visit: Yes Status: Acute Code(s): F10.929 - ALCOHOL USE, UNSPECIFIED WITH INTOXICATION, UNSPECIFIED SNOMED Code(s): 26843350 (2) Alcohol withdrawal Current Visit: Yes Status: Acute Code(s): F10.939 - ALCOHOL USE, UNSPECIFIED WITH WITHDRAWAL, UNSPECIFIED SNOMED Code(s): 666450387 (3) Dehydration Current Visit: Yes Status: Acute Code(s): E86.0 - DEHYDRATION SNOMED Code(s): 99939933 (4) Diarrhea Current Visit: Yes Status: Acute Code(s): R19.7 - DIARRHEA, UNSPECIFIED SNOMED Code(s): 54336568 (5) Failure to thrive Current Visit: Yes Status: Acute Code(s): GYM0362 - SNOMED Code(s): 06594309 (6) T wave inversion in EKG Current Visit: Yes Status: Acute Code(s): R94.31 - ABNORMAL ELECTROCARDIOGRAM [ECG] [EKG] SNOMED Code(s): 20487486 (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 Left ankle x-ray completed, report pending Maintain [facility] protocol. PT/OT. Discharge planning in progress for tomorrow. RN to notify that her petition has . The impression and plan of care has been dictated as directed. : I performed a history and examination of this patient, discussed the same with the dictator. I agree with the dictator's note ,documented as a scribe. Any additional findings or plans will be noted.
--- NOTE | 2023-02-04 13:40 | XR ---
EXAMINATION TYPE: XR ankle complete LT DATE OF EXAM: 02/03/2023 COMPARISON: NONE HISTORY: Pain TECHNIQUE: 3 views of the left ankle are submitted for evaluation. FINDINGS: There is no evidence for fracture or dislocation. Ankle mortise is intact. Soft tissues are within normal limits. IMPRESSION: 1. No evidence for acute fracture.
--- NOTE | 2023-02-04 15:17 | P.PN ---
Subjective Progress Note Date: 02/04/23 This is a 52-year-old male patient with a known history of hypertension, hyperlipidemia, chronic cervical pain, anxiety/depression, chronic and ongoing tobacco dependence, chronic and ongoing heavy daily alcohol abuse. He also has been having issues with diarrhea for weeks and poor appetite. His brought him into the emergency room on 01/27/2023 for the same. His alcohol level was 445. Urine drug screen positive for marijuana. Influenza screen negative. RSV screen negative. COVID-19 screen negative. His stool for occult blood was positive. White count 8.7. Hemoglobin 8.8. MCV 102.7. Platelets 71,000. Sodium 135. Potassium 3.3. Bicarb 18. BUN 15. Creatinine 0.81. Glucose 145. Magnesium 1.2. Chest x-ray revealed chronic changes of COPD without acute pulmonary process. Computed tomography scan of the abdomen and pelvis revealed no acute abdominal/pelvic process. Hepatic steatosis. Hydropic gallbladder. Echocardiogram reveals severe left ventricular systolic dysfunction with ejection fraction of 30-35%. Severe global hypokinesia. Moderate mitral and aortic regurgitation. The skin on his buttocks is extremely excoriated. He initially required Precedex while in the emergency room. That has since been weaned off. He is seen today in consultation in the ICU. He is arousable but drifts off. He has been requiring Haldol and Ativan. Maintaining good O2 satu rations in the mid to upper 90s on room air. He's been afebrile. He is tachycardic. Blood pressure stable. The patient is seen today 01/30/2023 in follow-up in the intensive care unit. He is currently resting comfortably in bed. Awake and alert. Maintaining good O2 saturations in the 90s on room air. He's been afebrile. Still somewhat tachycardic. Blood pressure stable. Blood cultures reveal no growth. White count 8.0. Hemoglobin 7.9. MCV 103.4. Platelet count 86,000. Sodium 132. Potassium 3.7. Bicarb 20. BUN 9. Creatinine 0.69. Glucose 105. C. difficile screen was negative. He remains in the CIWA protocol. NicoDerm patches in place. He remains on normal saline at 150 MLS per hour. He is tolerating a diet. 01/31/2023, the patient is communicating and is awake and alert. He is aware that is in the hospital. He remains quite shaky. No hallucinations. He is on room air oxygen. Hemodynamically, stable, still has some mild sinus tachycardia. IV fluids are currently at KVO. Meanwhile, he was given oral diet. We have not witnessed any GI bleeding. Hemoglobin has dropped onto 7.9 and the patient's cognition profile was within normal limits. He has chronic pancytopenia. He had positive occult blood. CAT scan of the abdomen that was done on 01/27/2023 showed hepatic steatosis, no acute intra-abdominal process, hydropic gallbladder. LFTs were consistent with alcoholic hepatitis with elevated AST and ALT. The patient was having diarrhea. Stool for C. diff has been negative. 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 He drinks vodka and he was acutely alcohol intoxicated at time of admission and immediately went into delirium tremens. Currently is off Precedex. No reported aspiration. It is on room air oxygen. His chest x-ray from time of admission showed no acute abnorm alities. 02/01/2023, the patient is in the intensive care unit for complications of alcohol withdrawal with, delirium tremens. Overnight, the patient became progressively more agitated. He restarted back on Precedex which is running at 0.4 mcg/kg/h. CBC more comfortable on this morning's evaluation. Ativan was also given, a total of 8 mg overnight. He is awake. She continues to be quite shaky. He is communicating. Obviously he does have an underlying encephalopathy from alcohol withdrawals. He is on room air oxygen. Pulse ox 93%. Hemodynamically stable. Cardiac rhythm is sinus and without any sinus tachycardia. In terms of his labs, WBC count is at 6.2 with a hemoglobin of 7.6 which is essentially stable. Platelet counts are improved and it's up to 214. BUN is at 10 with a creatinine of 0.8 and the sodium levels of 131. The liver function tests were noted from yesterday, none for today. He was provided diet and he is eating with close supervision. He is on BuSpar 50 mg along with Remeron 50 mg at bedtime and Cymbalta 60 mg by mouth daily. IV fluids are in the form of KVO. He is on thiamine also. 02/02/2023, I'm seeing the patient for a follow-up. Much improved since yesterday. Still on Precedex at a dose of 0.1 mcg/kg/h. No significant agitation. He did receive Ativan overnight a total of 2 mg was given to him. He is tolerating his diet. His IV fluids are currently at KVO. He is on thiamine. He is also on BuSpar, Remeron Cymbalta. Blood work from today shows of the mediastinal 7.2 with hemoglobin of 7.8 and a platelet count of 275. Serum bicarbs at 18 with a sodium level of 133, BUN is at 12 with a creatinine of 0.8. No other significant issues over the past 24 hours. Is currently comfortable at this point in time. 02/03/2023, the patient is on room air oxygen. He is calm and comfortable. No agitation. No altered mentation. He is off Precedex for now. He remains hemodynamically stable. No fever. No chills. Adequate urine output. He remains on a combination of BuSpar, Remeron and Cymbalta. On his blood work, his hemoglobin is stable at 7.8 with a white cell count of 8.3 and a platelet count of 391. BUN is at 9 with a creatinine of 0.7 and a sodium level is at 131. The patient is is tolerating diet for now. He was offered a nicotine patch. No other significant events overnight. 02/04/2023, patient is calm and comfortable. Denies having any complaints. Resting comfortably in bed. No active signs of delirium tremens. No confusion. No agitation. The patient left ICU and the patient is currently on a medical floor within the white cell count of 8.9 and a hemoglobin of 8.4, BUN of 11 and a creatinine of 0.8 and sodium level is at 133. Objective - Vital Signs Vital signs: Vital Signs Temp 98.8 F 02/04/23 07:03 Pulse 95 02/04/23 07:03 Resp 18 02/04/23 07:03 BP 117/68 02/04/23 07:03 Pulse Ox 94 L 02/04/23 08:49 FiO2 21 02/02/23 07:36 Intake & Output 02/03/23 02/04/23 02/04/23 18:59 06:59 18:59 Intake Total 920 Output Total 800 1500 Balance 120 -1500 Weight 79.5 kg 76.8 kg Intake: IV 450 Invasive Line 7 10 Invasive Line 8 40 Magnesium Sulfate-D5w Pmx 100 1 gm In Dextrose/Water 1 100ml.bag @ 100 mls/hr IVPB ONCE ONE Rx#: [id number] Sodium Chloride 0.9% 1, 300 000 ml @ 20 mls/hr IV . Q24H [facility] Rx#:[id number] Oral 470 Output: Urine 800 1500 Other: Voiding Method External Catheter Urinal Urinal Incontinent Incontinent # Voids 1 # Bowel Movements 1 - Exam GENERAL EXAM: Awake, alert, 52-year-old male, on room air, iin no apparent distress. HEAD: Normocephalic. EYES: Normal reaction of pupils, equal size. NOSE: Clear with pink turbinates. THROAT: No erythema or exudates. NECK: No masses, no JVD. CHEST: No chest wall deformity. LUNGS: Equal air entry with no crackles, wheeze, rhonchi or dullness. CVS: S1 and S2 normal with no audible murmur, regular rhythm. ABDOMEN: No hepatosplenomegaly, normal bowel sounds, no guarding or rigidity. SPINE: No scoliosis or deformity SKIN: Excoriated buttocks CENTRAL NERVOUS SYSTEM: No focal deficits, tone is normal in all 4 extremities. EXTREMITIES: There is no peripheral edema. No clubbing, no cyanosis. Peripheral pulses are intact. - Labs CBC & Chem 7: 02/04/23 06:24 02/04/23 06:24 Labs: Abnormal Lab Results - Last 24 Hours (Table) 02/03/23 02/04/23 02/04/23 Range/Units 04:46 06:24 06:24 RBC 2.52 L (4.30-5.90) m/uL Hgb 8.4 L (13.0-17.5) gm/dL Hct 25.9 L (39.0-53.0) % MCV 102.9 H (80.0-100.0) fL Plt Count 496 H (150-450) k/uL Monocytes # 1.4 H (0-1.0) k/uL ESR 129 H (0-15) mm/hr Sodium 133 L (137-145) mmol/L Alkaline Phosphatase 159 H (38-126) U/L Total Protein 5.5 L (6.3-8.2) g/dL Albumin 2.7 L (3.5-5.0) g/dL Assessment and Plan Plan: Acute alcohol withdrawal syndrome presenting serum alcohol level 445, , still having active symptoms of delirium tremens and the patient improved off Precedex, normal mentation, no hallucinations or tremors. No agitation. Delirium tremens, improved Urine drug screen positive for marijuana Acute diarrhea, improving. Stool for C. diff has been negative. Failure to thrive with poor appetite and weeks of diarrhea, stool for occult blood positive Excoriated buttocks secondary to diarrhea Acute on chronic Anemia, rule out possibility of an upper GI bleed. No evidence of any portal hypertension with esophageal varices or portal gastropathy based on the CAT scan of the abdomen Thrombocytopenia, alcohol induced Transaminitis, alcoholic liver disease Chronic and ongoing tobacco dependence Severe cardiomyopathy suspect secondary to alcoholism, possible coronary artery disease, ejection fraction 30-35% History of anxiety/depression Hypertension Hyperlipidemia Hypothyroidism Plan: Advance diet Continue Ativan per CIWA protocol IV fluids to KVO Advance diet Continue mirtazapine, and Cymbalta and BuSpar. Patient is currently also the intensive care unit and the patient is stable neurologically. Pulmonary and critical care services will sign off.
[2023-02-04] MEDS: HYDROPHILIC CREAM 180 GM TUBE TOPICAL SCH (16:11)
[2023-02-04] MEDS: DULoxetine HCL 60 MG CAPSULE.DR PO SCH (20:37)
[2023-02-04] MEDS: ATORVASTATIN 20 MG TAB PO SCH (20:37)
[2023-02-04] MEDS: MIRTAZAPINE 15 MG TAB PO SCH (20:37)
[2023-02-04] MEDS ORDERED: MELATONIN 5 MG TABLET PO SCH (21:00)
[2023-02-05 03:16] VITALS: RESP 18
[2023-02-05] MEDS: LEVOTHYROXINE 100 MCG TAB PO SCH (06:12)
[2023-02-05] MEDS: busPIRone HCl 5 MG TAB PO SCH (07:55)
[2023-02-05] MEDS: NICOTINE 21MG/24HR PATCH TRANSDERM SCH (07:55)
[2023-02-05] MEDS: DULoxetine HCL 30 MG CAPSULE.DR PO SCH (07:55)
[2023-02-05] MEDS: ASPIRIN 81 MG PO SCH (07:56)
[2023-02-05] MEDS: ACAMPROSATE CALCIUM 333 MG TABLET.DR PO SCH (07:56)
[2023-02-05] MEDS: THIAMINE 100 MG TAB PO SCH (07:56)
[2023-02-05] MEDS: METOPROLOL SUCCINATE (ER) 50 MG TAB.ER.24H PO SCH (07:56)
[2023-02-05] MEDS: SPIRONOLACTONE 25 MG TAB PO SCH (07:56)
[2023-02-05] MEDS: SODIUM CHLORIDE 0.9% 1,000 ML IV SCH (07:59)
[2023-02-05] MEDS: HYDROPHILIC CREAM 180 GM TUBE TOPICAL SCH (07:59)
[2023-02-05] MEDS: traMADol 50 MG TAB PO PRN (09:05)
[2023-02-05] MEDS: ACETAMINOPHEN TAB 325 MG TAB PO PRN (11:37)
--- NOTE | 2023-02-05 12:09 | P.PN ---
Subjective Progress Note Date: 02/05/23 The patient is a 52-year-old male presented to the hospital with acute alcohol intoxication. Cardiology was consulted for mildly abnormal troponin level, flat trend. Echocardiogram revealed severely reduced LV function of 35% with global hypokinesis, moderate aortic regurgitation, and moderate mitral regurgitation. He was started on cardiomyopathy medications and has fully been through alcohol withdrawal. He has been transferred to the medical floor and is ready for discharge. The patient was interviewed and examined resting comfortably in bed. He continues to become more alert. He denies any chest pain or chest pressure. No difficulty breathing. GENERAL: Ill-appearing, pale. NECK: Supple without JVD or thyromegaly. LUNGS: Breath sounds clear to auscultation bilaterally. Respiration equal and unlabored. No wheezes, rales or rhonchi. HEART: Regular rate and rhythm. No murmurs, rubs or gallops. S1 and S2 heard. EXTREMITIES: Normal range of motion, no edema. No clubbing or cyanosis. Peripheral pulses intact and strong. VITALS: Blood pressure 118/67, pulse 94, afebrile, respiratory rate 18, SpO2 93% on room air TELEMETRY: Sinus rhythm overnight with heart rates in the 80s to 90s IMPRESSION: Acute alcohol withdrawal Sinus tachycardia Cardiomyopathy, likely nonischemic Mitral regurgitation Aortic regurgitation Positive occult blood with anemia PLAN: Patient be discharged Outpatient cath with primary mill work, Dr. Henson I am dictating on behalf of Dr Tai James's history/physical and assessment/plan. Objective - Vital Signs Vital signs: Vital Signs Temp 99.5 F 02/05/23 06:46 Pulse 94 02/05/23 06:46 Resp 18 02/05/23 06:46 BP 118/67 02/05/23 06:46 Pulse Ox 93 L 02/05/23 08:54 FiO2 21 02/05/23 08:54 Intake & Output 02/04/23 02/05/23 02/05/23 18:59 06:59 18:59 Output Total 1500 Balance -1500 Weight 76.7 kg Output: Urine 1500 Other: Voiding Method Urinal Urinal Toilet Incontinent Incontinent Urinal Incontinent # Voids 5 1 # Bowel Movements 1 - Labs CBC & Chem 7: 02/04/23 06:24 02/04/23 06:24
[2023-02-05] MEDS ORDERED: methylPREDNISolone SOD SUCCI 125 MG/2 ML VIAL IV STA (12:45)
--- NOTE | 2023-02-05 13:51 | P.DS ---
Providers Date of admission: 01/27/23 14:46 Expected date of discharge: 02/05/23 Attending physician: Rich Ac Consults: 01/27/23 14:44 Consult Physician Routine Consulting Provider: Jason Granger Consult Reason/Comments: petition Do you want consulting provider notified?: Yes 01/27/23 15:17 Consult Physician Routine Consulting Provider: [facility] Consult Reason/Comments: t wave inversions, acute Do you want consulting provider notified?: Yes 01/28/23 16:50 Consult Physician Routine Consulting Provider: Daniel Hay Consult Reason/Comments: ETOH withdrawl on precedex Do you want consulting provider notified?: Yes 02/02/23 13:39 Consult Physician Routine Consulting Provider: Jason Granger Consult Reason/Comments: Depression Do you want consulting provider notified?: Yes Primary care physician: Rich Yashira [facility] Course: 01/28/23 This is a 52-year-old male only seen in my office one time was unable to stay for the complete visit in left known history of alcoholism and his asked me what she needed to do that he been not gotten out of bed and 3 days he was developing bedsores and he has been continuing to drink alcohol during this time and has maintained significant levels of intoxication apparently for the last several years. I was asked what she needed to do I told her she needed to take him to the hospital same on petition to be admitted to the mental health unit he will probably have to be medically cleared and that is exactly what transpired. This patient was started on a Ciwa, protocol in the emergency room after being evaluated by psychiatry, patient is requiring medical clearance for admission to the mental health unit. At time of admission patient's alcohol level was 400, patient maxed out his Ativan requirements on the C iwwa protocol, he was started on a Precedex drip, of which he was having breakthrough agitation, this case was discussed with Dr. Llanos critical care medicine, he agreed for the patient to be admitted to the intensive care unit 01/30/2023 Patient is awake alert and much less agitated, still on ciwa protocol diarrhea has improved. 01/31/2023 selective overflow. Maintained on CIWA protocol, positive tremors. Current CIWA score 6. Telemetry sinus tachycardia. EF 30-35%. Hemoglobin decreased to 7.9, no bleeding reported. Maintaining O2 sats in the 90s on room air. Denies chest pain, palpitations or shortness of breath. 02/01/2023 positive DT's, progressed overnight, became increasingly agitated. Received 8 mg of Ativan overnight.Precedex resumed. Denies chest pain, palpitations or shortness of breath. Maintaining O2 sats in the 90s on room air. Tachycardia resolved, telemetry sinus. Hemoglobin 10.6, platelets 214. Renal function stable. Potassium 4.1, magnesium 1.6 02/02/2023 maintained on CIWA protocol. Currently CIWA score 7. Currently on Precedex gtt. Consumed 75% of breakfast. Renal function stable. Hemoglobin 7.8 with no signs or symptoms of bleeding. Denies abdominal pain. 02/03/2023 Precedex weaned off. More alert , without agitation, conversing appropriately. Ambulating to chair with PT assistance. Complains of left ankle pain. Telemetry sinus rhythm. Receiving magnesium supplement for her magnesium level I.7. Hemoglobin 78, platelets 391. Renal function stable. Denies chest pain, palpitations or shortness of breath. Maintaining O2 sats in the 90s on room air. T-max 99.6, WBC within normal limits. 02/04/2023 evaluated by psychiatry, patient does not meet criteria for inpatient psychiatric admission, with medication recommendations noted and appreciated. Tremors continue,CIWA score 6. Consuming 100% of his breakfast, with no nausea vomiting or diarrhea. Participate with physical therapy today using a rolling walker, minimal assistance, poor balance, ataxia. Ankle x-ray completed yesterday, report pending. Currently not complaining of left ankle pain/Stood at bedside with walker. T-max 99.6, WBC within normal limits, CRP 12.1, sed rate pending uric acid normal, 5.3. Denies any chest pain, palpitations or shortness of breath. Maintaining O2 sats of 97 room air. Echo reporting severe global hypokinesis, EF 30-35%, moderate left ventricular dilatation. 02/05/2023: Patient is doing well. Psychiatry medications were reviewed along with his other issues. He is complaining of some pain in his feet and. Believes is from his gout. Uric acid return to 5.9. He received a dose of Solu-Medrol for discharge. She been tolerating a diet. Cardiology recommending a follow-up cardiac catheterization in the next 1-2 weeks. 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 He feels a bit better and ready to go home. He is not a candidate for inpatient rehabilitation. Recommended outpatient substance abuse treatment. He'll follow-up in our office, followed cardiology in the next 7 days. Since from alcohol or discuss Patient Condition at Discharge: Stable Plan - Discharge Summary New Discharge Prescriptions: New Nicotine 21Mg/24Hr Patch [Habitrol] 1 patch TRANSDERM DAILY patch Melatonin 5 mg PO HS tab Metoprolol Succinate (ER) [Toprol XL] 50 mg PO BID #30 tab Thiamine [Vitamin B-1] 100 mg PO DAILY tab Spironolactone [Aldactone] 25 mg PO DAILY #30 tab Aspirin 81 mg PO DAILY #30 tab Acamprosate Calcium [Campral] 666 mg PO TID #180 tab DULoxetine HCL [Cymbalta] 30 mg PO DAILY #30 cap chlordiazePOXIDE HCl [Librium] 25 mg PO Q12H PRN #10 cap PRN Reason: Anxiety lisinopriL [Zestril] 2.5 mg PO DAILY #30 tab Continue Atorvastatin [Lipitor] 20 mg PO HS DULoxetine HCL [Cymbalta] 60 mg PO DAILY busPIRone HCL 15 mg PO DAILY Levothyroxine Sodium 100 mcg PO DAILY Mirtazapine 15 mg PO HS #30 tab Discontinued Thiamine [Vitamin B-1] 100 mg PO DAILY #30 cap Olmesartan Medoxomil 40 mg PO DAILY Naproxen [Naprosyn] 500 mg PO BID PRN PRN Reason: Pain cloNIDine HCL [Catapres] 0.1 mg PO BID buPROPion SR [Wellbutrin SR] 150 mg PO DAILY No Action Loratadine 10 mg PO DAILY Discharge Medication List Atorvastatin [Lipitor] 20 mg PO HS 12/02/22 [History] DULoxetine HCL [Cymbalta] 60 mg PO DAILY 12/02/22 [History] Loratadine 10 mg PO DAILY 12/02/22 [History] busPIRone HCL 15 mg PO DAILY 12/02/22 [History] Levothyroxine Sodium 100 mcg PO DAILY 01/27/23 [History] Acamprosate Calcium [Campral] 666 mg PO TID #180 tab 02/05/23 [Rx] Aspirin 81 mg PO DAILY #30 tab 02/05/23 [Rx] DULoxetine HCL [Cymbalta] 30 mg PO DAILY #30 cap 02/05/23 [Rx] Melatonin 5 mg PO HS tab 02/05/23 [Rx] Metoprolol Succinate (ER) [Toprol XL] 50 mg PO BID #30 tab 02/05/23 [Rx] Mirtazapine 15 mg PO HS #30 tab 02/05/23 [Rx] Nicotine 21Mg/24Hr Patch [Habitrol] 1 patch TRANSDERM DAILY patch 02/05/23 [Rx] Spironolactone [Aldactone] 25 mg PO DAILY #30 tab 02/05/23 [Rx] Thiamine [Vitamin B-1] 100 mg PO DAILY tab 02/05/23 [Rx] chlordiazePOXIDE HCl [Librium] 25 mg PO Q12H PRN #10 cap 02/05/23 [Rx] lisinopriL [Zestril] 2.5 mg PO DAILY #30 tab 02/05/23 [Rx] Follow up Appointment(s)/Referral(s): [facility], [NON-STAFF] - 1-2 Days (For nursing and PT. Pt discharged with prescription. ) None,Stated [REFERRING] - 1-2 days Rich Ac Jr, DO [Primary Care Provider] - 1 Week Gómez Scott MD [STAFF PHYSICIAN] - 3 Days (Cardiac catheterization soon) Patient Instructions/Handouts: Abuse of Alcohol (DC) Activity/Diet/Wound Care/Special Instructions: A prescription for therapy was given to the patient. He refused a walker at this time, he was made aware that it was recommended by therapy. Discharge Disposition: HOME SELF-CARE
[2023-02-05 14:39] VITALS: BP 93/50; PULSE 89; TEMP 99.4
== END 2023-02-05 16:59 | disposition home or self-care (01) | DRG 896 ==
LOC: EC 10:26 → 4SSUR 14:46 → 2SICU 01-28 00:04 → 4SSUR 02-03 14:23
PROVIDERS: ADMIT Family Medicine; ATTEND Family Medicine
DX: F10.229 Alcohol dependence with intoxication, unspecified (principal); G93.41 Metabolic encephalopathy; E87.1 Hypo-osmolality and hyponatremia; D61.818 Other pancytopenia; I42.0 Dilated cardiomyopathy; I42.6 Alcoholic cardiomyopathy; I5A Non-ischemic myocardial injury (non-traumatic); K82.1 Hydrops of gallbladder; E87.20 Acidosis, unspecified; F10.24 Alcohol dependence with alcohol-induced mood disorder; F10.231 Alcohol dependence with withdrawal delirium; L89.312 Pressure ulcer of right buttock, stage 2; K70.10 Alcoholic hepatitis without ascites; K76.0 Fatty (change of) liver, not elsewhere classified; I10 Essential (primary) hypertension; F32.A Depression, unspecified; L89.321 Pressure ulcer of left buttock, stage 1; E86.0 Dehydration; E03.9 Hypothyroidism, unspecified; E78.5 Hyperlipidemia, unspecified; Y90.8 Blood alcohol level of 240 mg/100 ml or more; I08.0 Rheumatic disorders of both mitral and aortic valves; F17.210 Nicotine dependence, cigarettes, uncomplicated; R19.7 Diarrhea, unspecified; G89.29 Other chronic pain; M54.2 Cervicalgia; R45.1 Restlessness and agitation; R27.0 Ataxia, unspecified; F41.9 Anxiety disorder, unspecified; I25.10 Atherosclerotic heart disease of native coronary artery without angina pectoris; R63.0 Anorexia; Z68.24 Body mass index [BMI] 24.0-24.9, adult; M10.9 Gout, unspecified; Z20.822 Contact with and (suspected) exposure to COVID-19; Z91.81 History of falling; Z79.890 Hormone replacement therapy; Z79.899 Other long term (current) drug therapy; Z71.41 Alcohol abuse counseling and surveillance of alcoholic; Z71.3 Dietary counseling and surveillance
CPT/HCPCS: 36415; 71045; 74177; 80048; 80053; 80306; 80320; 81001; 82140; 82150; 82272; 83605; 83690; 83735; 84132; 84484; 84550; 85025; 85027; 85610; 85652; 85730; 86140; 86850; 86900; 86901; 87040; 87324; 87636; 93005; 93306; 94760; 96361; 96365; 96366; 96372; 96375; 96376; 99291

== ENCOUNTER → 2023-03-02 | Outpatient (CLI) | payer BC ==
--- NOTE | 2023-03-02 09:28 | XR ---
EXAMINATION TYPE: XR knee complete LT DATE OF EXAM: 03/02/2023 COMPARISON: None HISTORY: Decreased range of motion TECHNIQUE: 3 view left knee FINDINGS: Small joint effusion appears to be present. Some narrowing of the patellofemoral joint spac e may be present. Mild narrowing of the medial and lateral compartment joint spaces are present. No acute fracture or dislocation is evident. Follow up exams can be performed 7-10 days from acute tr auma for continued pain. If there is clinical concern for chondromalacia or other soft tissue abnorma lity of the knee, MRI could be performed for closer evaluation. IMPRESSION: 1. Small joint effusion. 2. Mild degenerative joint changes. 3. No acute osseous abnormality evident.
== END | disposition home or self-care (01) ==
LOC: LABWHC1 08:41
PROVIDERS: ATTEND Family Medicine
DX: M17.12 Unilateral primary osteoarthritis, left knee (principal)
CPT/HCPCS: 36415; 85652; 86140